=== PATIENT | male | born 1940 | race Caucasian/White ===

== ENCOUNTER 2024-07-06 23:32 | Emergency (ER) | payer MEDICARE ==
[~2024-07-06] VITALS: Ht 177.8 cm; Wt 68.0 kg
[~2024-07-06 23:32] MED LIST: ASPI-1026 PO; ATOR-2 PO; CHOL100046 PO; CYAN250014 PO; DAPA10TA PO; DIPH25CA PO; FENO160T16 PO; HYDR-4060 PO; L.AC1CAP6 PO; MAGN500C4 PO; MULT-1192 PO; OMEG-98 PO; PANT40TA54 PO; SITA1TAB6 PO; VERA120T20 PO
[2024-07-06 23:57] VITALS: PULSE 83; RESP 20
[2024-07-07 00:20] LABS: ABG BASE EXCESS 0.1 mmol/L (-2.0-3.0); ABG HCO3 24.9 mmol/L (21.0-28.0); ABG OXYGEN SATURATION 88.3 % (94.0-98.0); ABG PCO2 41 mmHg (35-48); PO2, ARTERIAL BG 54.4 mmHg (83.0-108.0); VENT MODE, BG 4L NC (ROOM AIR)
[2024-07-07 00:22] LABS: BASOPHILS # (AUTO) 0.04 K/uL (0.00-0.20); BASOPHILS % (AUTO) 0.4 % (0.0-5.0); EOSINOPHILS % (AUTO) 3.6 % (0.0-8.0); HEMATOCRIT 42.8 % (42-54); IMMATURE GRANULOCYTE ABSOLUTE 0.05 K/uL (0-1); LYMPHOCYTES # (AUTO) 2.3 K/uL (1.0-4.8); LYMPHOCYTES % (AUTO) 21.1 % (21.0-51.0); MEAN CORPUSCULAR HEMOGLOBIN 25.3 pg (27.0-33.0); MEAN CORPUSCULAR HGB CONC 30.4 g/dL (32.0-36.0); MEAN CORPUSCULAR VOLUME 83.3 fL (79-99); MONOCYTES # (AUTO) 0.9 K/uL (0.1-1.0); MONOCYTES % (AUTO) 8.3 % (3.0-13.0); NEUTROPHILS # (AUTO) 7.3 K/uL (1.8-7.7); NEUTROPHILS % (AUTO) 66.1 % (40.0-77.0); PLATELET COUNT (AUTO) 346 K/uL (130-400); RED BLOOD CELL COUNT(AUTO) 5.14 MIL/uL (4.50-6.20); RED CELL DISTRIBUTION WIDTH 18.7 % (11.0-15.5)
[2024-07-07] MEDS: furoSEMIDE 20MG VIAL IV ONE (00:32)
[2024-07-07] MEDS: Solu-medROL 125MG VIAL IVP ONE ×2 (00:32→06:08)
[2024-07-07 00:36] LABS: CREATININE 1.1 mg/dL (0.5-1.3); POTASSIUM 4.2 mmol/L (3.5-5.1)
[2024-07-07 01:05] LABS: B-TYPE NATRIURETIC PEPTIDE 271 pg/mL (0-100)
[2024-07-07 01:28] VITALS: PULSE 132; RESP 18
[2024-07-07] MEDS: acetylCYSTeine10% 4ML VIAL IH ONE (01:28)
[2024-07-07] MEDS: IpraTROPium/alBUTERol SULFATE 3 ML SOLUTION IH ONE ×2 (01:28)
[2024-07-07] MEDS: ZOSYN 3.375GM +NS 50ML IV ONE (01:37)
[2024-07-07] MEDS ORDERED: GUAI600T50 PO (04:34)
[2024-07-07] MEDS ORDERED: PRED20TA3 PO (04:34)
[2024-07-07] MEDS ORDERED: LEVO750T39 PO (04:34)
[2024-07-07] MEDS: metoPROLOL tartRATE 1 MG/ML 5ML VIAL IV ONE (06:08)
[2024-07-07] MEDS: guaiFENesin 600 MG TABLET.ER PO ONE ×2 (07:08→07:10)
[2024-07-07 12:03] VITALS: BP 118/69; PULSE 127; RESP 18; TEMP 98.8; O2SAT 93
== END 2024-07-07 12:27 | disposition home or self-care (01) ==
LOC: EDH 23:32
DX: J98.09 Other diseases of bronchus, not elsewhere classified (principal); J44.1 Chronic obstructive pulmonary disease with (acute) exacerbation; J96.21 Acute and chronic respiratory failure with hypoxia; E11.9 Type 2 diabetes mellitus without complications; F17.200 Nicotine dependence, unspecified, uncomplicated; Z79.01 Long term (current) use of anticoagulants; Z79.82 Long term (current) use of aspirin; Z79.899 Other long term (current) drug therapy; Z86.718 Personal history of other venous thrombosis and embolism; Z89.611 Acquired absence of right leg above knee
CPT/HCPCS: 99285; 80048; 82803; 83880; 85025; 36415; 94640; 71045; 96365; 96366; 96375; 96376; 93005; J3490; J2919 ×2; J2543; J1940; J7608

== ENCOUNTER 2024-08-12 22:41 | Inpatient (IN) | payer MEDICARE ==
[~2024-08-12] VITALS: Ht 177.8 cm; Wt 79.8 kg
[~2024-08-12 22:41] MED LIST changes: +GUAI600T50 PO; +LEVO750T40 PO; +PRED20TA3 PO
[2024-08-12] MEDS: Solu-medROL 125MG VIAL IVP ONE (22:56)
[2024-08-12] MEDS: MAGNESIUM 2GM PREMIX 50ML 50 ML IV SCH (23:02)
[2024-08-12 23:16] LABS: BASOPHILS % (AUTO) 0.9 % (0.0-5.0); EOSINOPHILS % (AUTO) 2.6 % (0.0-8.0); HEMATOCRIT 40.6 % (42-54); LYMPHOCYTES # (AUTO) 2.4 K/uL (1.0-4.8); LYMPHOCYTES % (AUTO) 20.9 % (21.0-51.0); MEAN CORPUSCULAR HEMOGLOBIN 24.5 pg (27.0-33.0); MEAN CORPUSCULAR HGB CONC 30.3 g/dL (32.0-36.0); MEAN CORPUSCULAR VOLUME 80.7 fL (79-99); MONOCYTES # (AUTO) 1.3 K/uL (0.1-1.0); MONOCYTES % (AUTO) 11.1 % (3.0-13.0); NEUTROPHILS # (AUTO) 7.3 K/uL (1.8-7.7); NEUTROPHILS % (AUTO) 63.6 % (40.0-77.0); NUCLEATED RED BLOOD CELLS 0.6 % (0.0-0.19); PLATELET COUNT (AUTO) 489 K/uL (130-400); RED BLOOD CELL COUNT(AUTO) 5.03 MIL/uL (4.50-6.20); RED CELL DISTRIBUTION WIDTH 20.5 % (11.0-15.5); WHITE BLOOD COUNT (AUTO) 11.4 K/uL (4.8-10.8)
[2024-08-12 23:19] VITALS: PULSE 83; RESP 22
[2024-08-12] MEDS: IpraTROPium/alBUTERol SULFATE 3 ML SOLUTION IH ONE (23:19)
[2024-08-12] MEDS ORDERED: VANCOMYCIN PROTOCOL PER PHARMACY IV SCH (23:30)
[2024-08-12 23:32] LABS: CREATININE 1.5 mg/dL (0.5-1.3); POTASSIUM 5.4 mmol/L (3.5-5.1)
[2024-08-12] MEDS: 0.9%NACL 1000ML 1,000 ML IV ONE (23:40)
[2024-08-12 23:53] LABS: SARS-CoV-2, RNA, NAAT NEGATIVE SARS CoV-2 (NEGATIVE)
[2024-08-12 23:56] LABS: INFLUENZA TYPE A Negative For Type A (NEGATIVE); INFLUENZA TYPE B Negative For Type B (NEGATIVE)
[2024-08-13] VITALS (15 sets, daily range): BP systolic 107–138; BP diastolic 65–98; PULSE 72–102; RESP 17–22; TEMP 97.5–98.4; O2SAT 89–99
[2024-08-13] MEDS: ZOSYN 3.375GM +NS 50ML IV ONE (00:03)
--- NOTE | 2024-08-13 00:10 | NUR ---
PATIENT DID NOT BRING HOME MEDICATIONS
[2024-08-13 00:29] LABS: PLATELET MORPHOLOGY LARGE PLTS PRESENT
--- NOTE | 2024-08-13 00:30 | ERN ---
General Chief Complaint: Dyspnea/Respdistress Stated Complaint: SOB Time Seen by MD: 22:51 Time Seen by Midlevel: 22:51 Source: patient History of Present Illness Initial Comments Patient is an 83-year-old male with a past medical history of hypertension, diabetes, hyperlipidemia, and recently diagnosed COPD who presents to the emergency department with shortness of breath. On arrival patient had an O2 saturation in the 70s. Patient states he is normally on home oxygen at 3 L. On arrival he specifically denies any chest pain, nausea, vomiting, or any other symptoms. Allergies: Coded Allergies: No Known Drug Allergies (Unverified Allergy, Unknown, 04/07/17) Home Meds Active Scripts Levofloxacin (Levofloxacin) 750 Mg Tablet, 1 TAB PO DAILY for 7 Days, #7 TAB 0 Refills Prov:FLORA LEDEZMA MD 07/07/24 Guaifenesin (Mucinex) 600 Mg Tablet.er, 1 TAB PO BID for cough for 10 Days, #20 TAB 0 Refills Prov:FLORA LEDEZMA MD 07/07/24 Prednisone (Prednisone) 20 Mg Tablet, 1 TAB PO AD for 6 Days, #14 TAB 0 Refills TAKE 1 TAB BY MOUTH THREE TIMES PER DAY X3 DAYS, THEN TAKE 1 TAB BY MOUTH TWICE A DAY X2 DAYS, THEN TAKE 1 TAB BY MOUTH ONCE A DAY X1 DAY. Prov:FLORA LEDEZMA MD 07/07/24 Reported Medications Hydrocodone/Acetaminophen (Hydrocodon-Acetaminophen 5-325) 1 Each Tablet, 1 EACH PO AD PRN for PAIN LEVEL 6 TO 10, TAB 04/07/17 Diphenhydramine HCl (Antihistamine) 25 Mg Capsule, 10 MG PO HS, CAP 04/07/17 L.acidoph & Paracasei,B.lactis (Probiotic) 1 Each Capsule, 1 EACH PO HS, CAP 04/07/17 Magnesium Oxide (Magnesium) 500 Mg Capsule, 500 MG PO DAILY, CAP 04/07/17 Cholecalciferol (Vitamin D3) (Vitamin D) 1,000 Unit Capsule, 1000 UNIT PO DAILY, CAP 04/07/17 Cyanocobalamin (Vitamin B-12) (Vitamin B12) 2,500 Mcg Tab.chew, 1000 MCG PO DAILY, TAB.CHEW 04/07/17 Multivitamin (Multi-Vitamin Daily) 1 Each Tablet, 1 EACH PO HS, TAB 04/07/17 Frederick-3S/Dha/Epa/Fish Oil (Fish Oil 1,200 mg Softgel) 1 Each Capsule, 1 EACH PO DAILY, CAP 04/07/17 Aspirin (Aspirin) 325 Mg Tablet, 325 MG PO HS, TAB 04/07/17 Dapagliflozin Propanediol (Farxiga) 10 Mg Tablet, 10 MG PO HS, TAB 04/07/17 Sitagliptin Phos/Metformin HCl (Janumet 50-1,000 mg Tablet) 1 Each Tablet, 1 EACH PO BIDMEALS, TAB 04/07/17 Verapamil HCl (Verapamil HCl) 120 Mg Tablet, 120 MG PO BID, TAB 04/07/17 Pantoprazole Sodium (Pantoprazole Sodium) 40 Mg Tablet.dr, 40 MG PO DAILY, TAB 04/07/17 Fenofibrate (Fenofibrate) 160 Mg Tablet, 160 MG PO DAILY, TAB 04/07/17 Atorvastatin Calcium (Atorvastatin Calcium) 80 Mg Tablet, 80 MG PO HS, TAB 04/07/17 Past Medical History Past Medical History: COPD, Diabetes-Type II, Hypertension, Hypotension, Unknown Medical History Other: ON HOME O2, BLOOD CLOTS, POOR HISTORIAN Past Surgical History: Cholecystectomy, Other Surgical History Other: RIGHT LEG AMPUTATIONS, BACK Family History Family History: Negative Social History Social History: Smokers ROS Dictation CONSTITUTIONAL: Negative except for HPI HEAD/FACE: Negative except for HPI EENT: Negative except for HPI RESPIRATORY: Negative except for HPI GASTROINTESTINAL/ABDOMINAL: Negative except for HPI GENITOURINARY: Negative except for HPI MUSCULOSKELETAL: Negative except for HPI INTEGUMENTARY: Negative except for HPI NEUROLOGICAL/PSYCH: Negative except for HPI HEMATOLOGIC/LYMPHATIC: Negative except for HPI All Systems Negative, Except as noted above. 13 point review of systems assessed and all negative except for above. Physical Exam Physical Exam Dictation Vital Signs reviewed General Appearance: Alert, oriented x 3, moderate respiratory distress, ill-a ppearing, Head and Face: non-traumatic. Eyes: PERRL, pink conjunctivas, eyelid no trauma, anterior chamber with arcus senilis. Ears: Pinnas intact and no signs of trauma or erythema ear canals clear and no discharge TM no erythema Nose: No discharge, no bleeding. Oropharynx: Mouth normal, tongue pink, pharynx clear,no erythema, tonsils no exudates, no abscesses noted, mucous membrane moist Neck: Supple, non-tender, no thyromegaly, no masses, no JVD, no bruits Breast:Deferred Chest:No tenderness, no crepitus, no paradoxical movement, Lungs: Moderate amount of wheezing to bilateral lung jennings, tachypneic Heart: Tachycardic, regular rhythm, no murmur, no gallops Vascular: no peripheral edema, Abdomen: Soft, positive bowel sounds, nondistended, no guarding, nontender, no rebound, no masses no hepatomegaly, no splenomegaly, no Lozada's sign, no hernias. Rectal: Deferred Genital: Deferred Neurological: Normal speech, motor function intact, sensory function intact Musculoskeletal: Neck nontender, full range of motion, back nontender, full range of motion, Extremities: Right AKA Skin: Color pink, dry, no turgor, no rash, no lacerations, no abrasions, no contusions. Lymphatic: Deferred Results Laboratory and Microbiology Lab and Micro Result Laboratory Tests Test 08/12/24 23:05 08/12/24 23:16 White Blood Count 11.4 K/uL (4.8-10.8) H Red Blood Count 5.03 MIL/uL (4.50-6.20) Hemoglobin 12.3 g/dL (14.0-18.0) L Hematocrit 40.6 % (42-54) L Mean Corpuscular Volume 80.7 fL (79-99) Mean Corpuscular Hemoglobin 24.5 pg (27.0-33.0) L Mean Corpuscular Hemoglobin Concent 30.3 g/dL (32.0-36.0) L Red Cell Distribution Width 20.5 % (11.0-15.5) H Platelet Count 489 K/uL (130-400) H Mean Platelet Volume 9.1 fL (7.5-10.5) Immature Granulocyte % (Auto) 0.9 % (0-1) Neutrophils (%) (Auto) 63.6 % (40.0-77.0) Lymphocytes (%) (Auto) 20.9 % (21.0-51.0) L Monocytes (%) (Auto) 11.1 % (3.0-13.0) Eosinophils (%) (Auto) 2.6 % (0.0-8.0) Basophils (%) (Auto) 0.9 % (0.0-5.0) Neutrophils # (Auto) 7.3 K/uL (1.8-7.7) Lymphocytes # (Auto) 2.4 K/uL (1.0-4.8) Monocytes # (Auto) 1.3 K/uL (0.1-1.0) H Eosinophils # (Auto) 0.30 K/uL (0.00-0.70) Basophils # (Auto) 0.10 K/uL (0.00-0.20) Absolute Immature Granulocyte (auto 0.10 K/uL (0-1) Nucleated Red Blood Cells 0.6 % (0.0-0.19) H Platelet Morphology LARGE PLTS PRESENT Red Blood Cell Morphology See comments Sodium Level 133 mmol/L (136-145) L Potassium Level 5.4 mmol/L (3.5-5.1) H Chloride Level 97 mmol/L (101-111) L Carbon Dioxide Level 22 mmol/L (21-32) Blood Urea Nitrogen 24 mg/dL (7-18) H Creatinine 1.5 mg/dL (0.5-1.3) H Glomerular Filtration Rate Calc 46 mL/min (>90) Random Glucose 147 mg/dL (70-105) H Lactic Acid Level 4.1 mmol/L (0.8-2.5) H Total Calcium 8.7 mg/dL (8.5-10.1) Magnesium Level 2.00 mg/dL (1.80-2.40) Total Creatine Kinase 115 U/L (21-232) # Troponin I High Sensitivity 15 ng/L (4-75) B-Type Natriuretic Peptide 996 pg/mL (0-100) H Procalcitonin 0.05 ng/mL (0.05-0.5) Influenza Type A Antigen Negative For Type A Influenza Type B Antigen Negative For Type B SARS-CoV-2, RNA, NAAT NEGATIVE SARS CoV-2 Labs Reviewed?: Yes MDM MDM: Differential diagnosis: COPD exacerbation, pneumonia, pulmonary edema, CHF exacerbation Rationale: Tests considered and ordered secondary to shared decision making include: Previous outside records reviewed: Old ER visits. Risk of complication and/or morbidity or mortality of patient management: None Medications-Per medication reconciliation Need for hospitalization: Patient does meet criteria for hospitalization. Need for emergency major/minor surgery: No There are no social concerns with this patient. Prescription drug management Prescriptions will include symptomatic care Patient's prior external medical records from other ER visits were reviewed by me as indicated. Prior testing and results from previous visits were reviewed. Prior tests were taken into account with medical decision making and resource utilization, independent historian/historians were used to obtain complete medical history. I independently interpreted the test that were performed, results were reviewed by me and considered findings on radiology if ordered. Medical management and examination interpretation discussions were had by me with other qualified healthcare professionals as indicated for the patient's care. ED Course Orders Procedure Category Date Status Time Cbc With Differential LAB 08/12/24 Complete 22:42 Basic Metabolic Panel LAB 08/12/24 Complete 22:42 B-Type Natriuretic LAB 08/12/24 Complete Peptide 22:42 Chest 1vw RAD 08/12/24 Taken 22:42 Troponin I High LAB 08/12/24 Complete Sensitivity 22:42 12 Lead Ekg Tracing- EKG 08/12/24 Logged Technical 22:42 Ipratropium/Albuterol PHA 08/12/24 Complete Neb (Duoneb) 23:00 Methylprednisolone PHA 08/12/24 Complete Succ 125mg (Solu-Medr 23:00 Creatine Kinase, Total LAB 08/12/24 Complete 22:52 Covid Rna Naat LAB 08/12/24 Complete 22:52 Influenza Type A & B, LAB 08/12/24 Complete Rapid 22:52 Procalcitonin LAB 08/12/24 Complete 22:52 Lactic Acid LAB 08/12/24 Complete 22:52 Magnesium LAB 08/12/24 Complete 22:52 Urinalysis Profile LAB 08/12/24 Logged 22:52 Blood Cult JULIEN 08/12/24 In Process 22:52 Magnesium 2gm Premix PHA 08/12/24 In Process 50ml (Magnesium 2gm 23:00 0.9%Nacl 1000ml (Ns PHA 08/12/24 Complete 1000ml) 23:30 Vancomycin Protocol PHA 08/12/24 Complete (Vancomycin Protocol 23:30 Zosyn 3.375gm+Ns 50ml PHA 08/12/24 Complete (Zosyn 3.375gm+Ns 23:30 Vancomycin 1.75 PHA 08/13/24 Complete Gm/250 Ml Bag 00:00 Vancomycin 1g/250ml PHA 08/14/24 In Process Kit (Vancomycin 1g/2 00:00 Vancomycin Trough LAB 08/14/24 Verified 23:00 Current Medications Medications (Trade) Dose Ordered Sig/[place] Route PRN Reason Start Time Stop Time Status Last Admin Dose Admin Albuterol (DUOneb) 1 UDVIAL ONCE ONCE IH 08/12/24 23:00 08/12/24 23:01 DC 08/12/24 23:19 Magnesium Sulfate 50 ml @ 0 mls/hr PROTOCOL IV 08/12/24 23:00 09/11/24 22:59 08/12/24 23:02 Methylprednisolone Sodium Succinate (Solu-medROL 125MG) 125 mg ONCE ONCE IVP 08/12/24 23:00 08/12/24 23:01 DC 08/12/24 22:56 Piperacillin Sod/ Tazobactam Sod (Zosyn 3.375gm+NS 50ml) 3.375 gm ONCE ONCE IV 08/12/24 23:30 08/12/24 23:42 DC 08/13/24 00:03 Sodium Chloride 1,000 ml @ 0 mls/hr ONCE ONCE IV 08/12/24 23:30 08/12/24 23:31 DC 08/12/24 23:40 Vancomycin HCl 250 ml @ 125 mls/hr ONCE ONCE IV 08/13/24 00:00 08/13/24 01:59 DC 08/13/24 00:52 Vancomycin HCl (Vancomycin Protocol) 1 each AD IV 08/12/24 23:30 08/12/24 23:55 DC Vital Signs Date Time Temp Pulse Resp B/P (MAP) Pulse Ox O2 Delivery O2 Flow Rate FiO2 08/13/24 00:04 79 21 111/63 90 Nasal Cannula* 3 32 08/12/24 23:19 83 22 08/12/24 22:42 97.0 87 32 144/96 78 DX & DISP Disposition: Inpatient Decision to Admit Date: Aug 13, 2024 Departure Impression: Primary Impression: COPD with acute exacerbation Additional Impressions: Leukocytosis, Lactic acidosis, JR (acute kidney injury), Respiratory distress Condition: Stable Referrals: WANDY ROJAS MD (PCP) I have reviewed the case, and I agree with, Diagnosis and Plan I performed the substantive portion of the visit. I have reviewed and personally made and approve the management plan that is documented in the note by myself or the ARELI. I acknowledge for responsibility for the patient's management plan. RENEE GOLDSTEIN Aug 13, 2024 00:30
[2024-08-13] MEDS: acetaMINOPHEN/coDEINE 120/12MG 5ML PO ONE (00:47)
[2024-08-13 00:49] LABS: B-TYPE NATRIURETIC PEPTIDE 996 pg/mL (0-100)
[2024-08-13] MEDS: VANCOMYCIN 1.75 GM/250 ML BAG 250 ML IV ONE (00:52)
[2024-08-13 01:04] LABS: ABG BASE EXCESS -8.9 mmol/L (-2.0-3.0); ABG HCO3 15.6 mmol/L (21.0-28.0); ABG OXYGEN SATURATION 88.3 % (94.0-98.0); ABG PCO2 30 mmHg (35-48); ABG PH 7.329 (7.350-7.450); PO2, ARTERIAL BG 57.3 mmHg (83.0-108.0); VENT MODE, BG NC (ROOM AIR)
--- NOTE | 2024-08-13 03:19 | NUR ---
PATIENT REQUESTS TO HAVE BIPAP REMOVED, PATIENT ADVISED BIPAP HAS BEEN VERY BENEFICIAL FOR HIS TREATMENT. PATIENT INSISTS ON HAVING BIPAP REMIVED
[2024-08-13 03:44] LABS: ADD UA MICROSCOPIC YES; APPEARANCE,URINE CLEAR (CLEAR); BILIRUBIN,URINE NEGATIVE (NEGATIVE); COLOR,URINE YELLOW (YELLOW); GLUCOSE, URINE (UA) >=1000 mg/dL (NEGATIVE); KETONES,URINE NEGATIVE (NEGATIVE); LEUKOCYTE ESTERASE ,URINE NEGATIVE Leu/uL (NEGATIVE); NITRATE,URINE NEGATIVE (NEGATIVE); OCCULT BLOOD,URINE NEGATIVE (NEGATIVE); PROTEIN,URINE NEGATIVE (NEGATIVE); UROBILINOGEN,URINE 0.2 mg/dL (0.2-1.0)
[2024-08-13 03:45] LABS: RBC,URINE 0-1 /HPF (0-1); WBC,URINE 0-1 /HPF (0-1)
[2024-08-13 03:47] LABS: ABG BASE EXCESS -6.3 mmol/L (-2.0-3.0); ABG HCO3 17.6 mmol/L (21.0-28.0); ABG OXYGEN SATURATION 96.9 % (94.0-98.0); ABG PCO2 31 mmHg (35-48); ABG PH 7.374 (7.350-7.450); DEVICE COMMENT LB NURSE MANNY; PO2, ARTERIAL BG 91.4 mmHg (83.0-108.0); VENT MODE, BG BIPAP 12-6 (ROOM AIR)
[2024-08-13] MEDS: DOXYCYCLINE 100MG+NS 250ML 250 ML IV SCH (06:02)
--- NOTE | 2024-08-13 06:40 | NUR ---
PATIENT PLACED BACK ON BIPAP
[2024-08-13] MEDS: IpraTROPium 0.5 MG/2.5 ML INH IH SCH (07:16)
[2024-08-13] MEDS: ALBUTEROL 0.083% 2.5 MG/3 ML INH IH SCH (07:16)
--- NOTE | 2024-08-13 07:48 | EKG ---
[facility] Test Date: 2024-08-12 Test Time: 22:49:57 Pat Name: YEN ONEAL Department: [facility] Room: 409 Gender: M Piece Presser: [id number] : [id number] Requested By: FLORA LEDEZMA Order Number: [id number] Reading MD: Castro Lacy Measurements Intervals [place] Rate: 95 P: 0 MA: 0 QRS: -77 QRSD: 109 T: -48 QT: 501 QTc: 629 Interpretive Statements Atrial fibrillation Inferior infarct, age indeterminate Prolonged QT interval Compared to ECG 07/07/2024 00:09:21 Prolonged QT interval now present T-wave abnormality no longer present Myocardial infarct finding still present Electronically Signed On 08-16-2024 19:52:22 [employer] COORDINATOR by Castro Lacy Please click the below link to view image of tracing.
--- NOTE | 2024-08-13 08:18 | HP ---
[facility] HISTORY & PHYSICAL Date Patient Seen: Aug 13, 2024 Time of Visit: 08:09 Supervising Physician: [Dr. Andrade] Primary Care Physician: [Dr. Jose Julio] Outpatient Specialists: [ ] Inpatient Consults: [ ] PROBLEM LIST: Acute COPD exacerbation, requiring BiPAP, POA Suspected Cor pulmonale, per echo Acute on chronic hypoxic respiratory failure, on home O2-3L Acute kidney injury, POA Recently diagnosed A-fib, POA Lactic acidosis, POA, improved Hyperkalemia, POA Plan: Start solumedrol 40mg Q8H Order a CT of the chest w/o contrast Continue antibiotics for now, deescalate as indicated Monitor respiratory status, ABG's as needed Continue BiPAP, titrate as needed Start lovenox 60mg Q12H Further management per hospital course Resume home meds when available HPI: [This is an 83-year-old male with a history diabetes, hypertension, hyperlipidemia, recently diagnosed COPD on home O2 at 3 L NC who presents to the ED for evaluation of shortness of breaths. He was found hypoxic with O2 sat of 70% and was placed on supplemental oxygen and later BiPAP. His labs reveal leukocytosis with WBC of 11, hyponatremia at 1:33 a.m., hyperkalemia at 5.4 and elevated creatinine at 1.5. His CK was 115, troponin 15, BNP elevated at 996. His COVID and flu swabs were negative, pro count was 0.05. Had lactic acidosis at 4.1, improved to 2.1. His UA was positive for glucosuria. Patient was given a dose of antibiotics and nebulizer treatment in the ED. CXR from admission pending reading but appears to have mild bilateral pulmonary infiltrates. Initial EKG on admission shows atrial fibrillation. Per , patient as recently diagnosed with A-fib about a week ago. He takes metoprolol 100mg succinate and eliquis 5mg at home.] PAST MEDICAL HX: see above PAST SURGICAL HX: noncontributory SOCIAL HISTORY: No tobacco, ETOH, or illicit drug use Coded Allergies: No Known Drug Allergies (Unverified Allergy, Unknown, 04/07/17) REVIEW OF SYSTEMS: 12 point ROS reviewed with patient. Pertinent positives mentioned above. Otherwise negative. PHYSICAL EXAM: GENERAL: alert, weak, awake oriented x 3 HEENT: EOMI, Sclera non icteric, moist mucosa NECK: Supple, no JVD, trachea midline LUNGS: Clear breath sounds bilaterally. No wheezes HEART: Regular rate and rhythm. Normal S1 and S2, without murmurs ABD: Abdomen soft, nontender. Bowel sounds present EXT: No clubbing cyanosis or edema NEURO: Alert and oriented to person, follows commands Vital Signs (last 8hr) Date Time Temp Pulse Resp B/P (MAP) Pulse Ox O2 Delivery O2 Flow Rate FiO2 08/13/24 07:20 98.2 76 21 117/64 98 Bi-PAP+ 5.0 30 08/13/24 07:20 78 19 08/13/24 07:12 78 21 50 08/13/24 06:40 98.2 95 19 125/68 98 Bi-PAP+ 30 08/13/24 04:33 80 19 111/81 91 Nasal Cannula* 5 40 08/13/24 04:00 87 21 08/13/24 04:00 87 21 N/Cannula Low lpm 5.0 40 08/13/24 03:20 78 19 101/77 96 Bi-PAP+ 30 08/13/24 01:46 85 18 94/56 97 Bi-PAP+ 30 08/13/24 01:20 85 21 50 08/13/24 01:09 90 21 95/53 96 Nasal Cannula* 3 32 LABS: Hematology Labs: Test 08/12/24 23:05 Range/Units White Blood Count 11.4 H 4.8-10.8 K/uL Red Blood Count 5.03 4.50-6.20 MIL/uL Hemoglobin 12.3 L 14.0-18.0 g/dL Hematocrit 40.6 L 42-54 % Mean Corpuscular Volume 80.7 79-99 fL Mean Corpuscular Hemoglobin 24.5 L 27.0-33.0 pg Mean Corpuscular Hemoglobin Concent 30.3 L 32.0-36.0 g/dL Red Cell Distribution Width 20.5 H 11.0-15.5 % Platelet Count 489 H 130-400 K/uL Mean Platelet Volume 9.1 7.5-10.5 fL Immature Granulocyte % (Auto) 0.9 0-1 % Neutrophils (%) (Auto) 63.6 40.0-77.0 % Lymphocytes (%) (Auto) 20.9 L 21.0-51.0 % Monocytes (%) (Auto) 11.1 3.0-13.0 % Eosinophils (%) (Auto) 2.6 0.0-8.0 % Basophils (%) (Auto) 0.9 0.0-5.0 % Neutrophils # (Auto) 7.3 1.8-7.7 K/uL Lymphocytes # (Auto) 2.4 1.0-4.8 K/uL Monocytes # (Auto) 1.3 H 0.1-1.0 K/uL Eosinophils # (Auto) 0.30 0.00-0.70 K/uL Basophils # (Auto) 0.10 0.00-0.20 K/uL Absolute Immature Granulocyte (auto 0.10 0-1 K/uL Nucleated Red Blood Cells 0.6 H 0.0-0.19 % Platelet Morphology LARGE PLTS PRESENT Red Blood Cell Morphology See comments Chemistry Labs: Test 08/13/24 05:41 08/13/24 04:50 08/12/24 23:05 Range/Units B-Type Natriuretic Peptide 1030 H 0-100 pg/mL Lactic Acid Level 2.1 0.8-2.5 mmol/L Thyroid Stimulating Hormone (TSH) 5.19 #H 0.36-3.74 uIU/mL Sodium Level 133 L 136-145 mmol/L Potassium Level 5.4 H 3.5-5.1 mmol/L Chloride Level 97 L 101-111 mmol/L Carbon Dioxide Level 22 21-32 mmol/L Blood Urea Nitrogen 24 H 7-18 mg/dL Creatinine 1.5 H 0.5-1.3 mg/dL Glomerular Filtration Rate Calc 46 >90 mL/min Random Glucose 147 H 70-105 mg/dL Total Calcium 8.7 8.5-10.1 mg/dL Magnesium Level 2.00 1.80-2.40 mg/dL Total Creatine Kinase 115 # 21-232 U/L Troponin I High Sensitivity 15 4-75 ng/L Procalcitonin 0.05 0.05-0.5 ng/mL DIAGNOSTICS / RADIOLOGY RESULTS: [pending CXR reading] PLAN NEURO: Minimize central acting medications as possible. Maintain fall precautions, adequate lighting during the day PULMONARY: Supplemental 02 as needed. Maintain aspiration precautions at all times CARDIOVASCULAR: Follow hemodynamics. Vital signs per facility protocol GI & NUTRITION: Continue with nutritional support. Continue stool softeners and laxatives as needed. KIDNEYS & ELECTROLYTES: Strict monitoring of intake, output and overall fluid balance. Avoid nephrotoxic medications to the extent possible. Medications to be dosed according to renal function. Monitor electrolytes and replace as needed ENDOCRINE: Maintain blood glucose between 100-180 at all times. Hypoglycemia protocol in place INFECTIOUS DISEASE: Trend temperature, WBC and procalcitonin level Follow cultures, deescalate antibiotics as soon as possible. Panculture if new onset fever ONCOLOGY/HEMATOLOGY/COAGULATION: Monitor for s/s of bleeding Monitor hemoglobin, coagulation studies as needed SKIN: Pressure ulcer prevention per facility protocol Specialty mattress ORTHO/REHAB: Continue PT/OT Prophylaxis: Continue GI and DVT prophylaxis Code Status: Full Resuscitation Disposition: TBD Other: Total patient care time exceeds 35 minutes excluding all procedures. MAVIS PEGUERO Aug 13, 2024 08:18
--- NOTE | 2024-08-13 08:26 | HMCIMG ---
CHEST 1VW REASON: SOB COMPARISON: 07/07/2024 FINDINGS: Single view of the chest was obtained. Lungs are clear. Heart size is normal. There is no pulmonary vascular congestion. There may be minimal pleural effusions. Mediastinum and bony thorax appear unremarkable. IMPRESSION: 1. There may be minimal pleural effusions, the exam is otherwise unremarkable.
[2024-08-13] MEDS: Solu-medROL 40MG VIAL IVP SCH (08:59)
[2024-08-13] MEDS: metoPROLOL tartRATE 50 MG TAB PO ONE (09:00)
[2024-08-13] MEDS: ENOXAPARIN SODIUM 60 MG/0.6 ML SQ ONE (09:00)
[2024-08-13] MEDS: furoSEMIDE 40MG VIAL IV SCH (09:00)
[2024-08-13] MEDS: metOPROLol sucCINATE 50 MG TAB.SR.24H PO SCH (09:37)
--- NOTE | 2024-08-13 10:20 | NUR ---
DCP: HOME Per Nia Gregorio [phone], Pt had AKA of rt leg in February and they are still trying to adjust this change. Pt's son came from out of state and made changes to their home for pt to have better access into and throughout his home. states home is now handicap equipped and there is no need for pt to go anywhere but home. Pt was going to [facility] to get pt ready for prothesis, but that has been placed on hold, since pt has become weaker. Pt and hoping to get be able to return to therapy soon. provides standby assistance in shower, pt has reg walker, w/c, electric w/c, O2 concentrator and portable concentrator as well. PCP is Andie Julio and they use [facility] for rx. DCP is home Addendum: 08/13/24 at 1027 by NILDA HERNANDEZ Amended: Links added.
--- NOTE | 2024-08-13 10:47 | HMCIMG ---
CT CHEST W/O CONTRAST REASON: SOB COMPARISON: None. TECHNIQUE: Multiple sequential axial images of the chest were obtained from the thoracic inlet through the upper pole of the kidneys without intravenous contrast administration. FINDINGS: There is a small right pleural effusion. There is mild atelectasis in the right lung base. Lungs are otherwise clear. There are no focal masses or infiltrates. Heart size is normal with no vascular congestion. There is no hilar or mediastinal lymphadenopathy. Chest wall structures appear normal. Visualized upper abdominal structures show a small amount of fluid around the liver. Upper abdominal structures are otherwise unremarkable. IMPRESSION: 1. Small right pleural effusion with some basilar atelectasis, there is a minimal left effusion. 2. Small amount of fluid around the liver. 3. Otherwise unremarkable noncontrast CT chest. CT was performed with one or more following dose reduction techniques: automated exposure control, adjustment of the mA and kv according to patient's size, or use of a iterative reconstruction technique.
--- NOTE | 2024-08-13 17:25 | NUR ---
PATIENT ARRIVED TO UNIT VIA STRETCHER. RESPIRATORY THERAPIST AT BEDSIDE. PATIENT TO BE ON BIPAP, SETTINGS IN PLACE WELL NASAL CANNULA. PATIENT IN NO RESPIRATORY DISTRESS, ALERT AND ORIENTED X 4. IV TO LEFT HAND PATENT AND INTACT. BED IN LOWEST POSITION AND CALL LIGHT IN REACH
[2024-08-13] MEDS: guaiFENesin/dextroMETHORphan 1 EACH TAB.SR.12H PO SCH (20:46)
--- NOTE | 2024-08-13 23:10 | NUR ---
PT REFUSING TO KEEP BIPAP ON O2 SAT WITH IT ON 96%. TRIED TO PUT HIS HI-FLOW N/C HE IS REFUSING THAT WELL. EDUCATED HIM THAT HIS OXYGEN SATURATION WILL GO DOWN WITH NOTHING ON PT STATES HE DOES NOT NEED OXYGEN HE STRICTLY CAME IN FOR A COUGH. BERTHA RAMIREZ IS GIVING HIM HIS BREATHING TREATMENT WITH OXYGEN ON HIS O2 SAT IS 92%. HE IS REFUSING OXYGEN WITNESSED BY BERTHA RAMIREZ. REFUSAL SIGNED BY MYSELF AND BERTHA. PT IS AAOX3 ABLE TO MAKE HIS OWN DECISIONS.
--- NOTE | 2024-08-13 23:30 | NUR ---
PT HAS O2 ON AT THIS TIME AT 5L VIA N/C, O2 SAT 99%. NO S/S OF DISTRESS NOTED. SITTING UP IN HIS OWN W/C HE STATED HE WILL CALL WHEN HE IS READY TO BE PUT BACK IN BED.
[2024-08-14] VITALS (12 sets, daily range): BP systolic 93–133; BP diastolic 57–88; PULSE 87–109; RESP 18–23; TEMP 97.4–98.5; O2SAT 84–95
[2024-08-14] MEDS: VANCOMYCIN 1G/250ML KIT 250 ML IV SCH (00:18)
[2024-08-14 05:23] LABS: HEMATOCRIT 39.1 % (42-54); MEAN CORPUSCULAR HEMOGLOBIN 24.3 pg (27.0-33.0); MEAN CORPUSCULAR HGB CONC 29.9 g/dL (32.0-36.0); MEAN CORPUSCULAR VOLUME 81.3 fL (79-99); NUCLEATED RED BLOOD CELLS 0.6 % (0.0-0.19); RED BLOOD CELL COUNT(AUTO) 4.81 MIL/uL (4.50-6.20); RED CELL DISTRIBUTION WIDTH 20.4 % (11.0-15.5); WHITE BLOOD COUNT (AUTO) 7.9 K/uL (4.8-10.8)
[2024-08-14 05:37] LABS: CREATININE 1.2 mg/dL (0.5-1.3); PHOSPHORUS 3.4 mg/dL (2.5-4.9); POTASSIUM 4.2 mmol/L (3.5-5.1)
[2024-08-14 05:43] LABS: HEMOGLOBIN A1C 6.7 % (4.0-6.0)
[2024-08-14] MEDS ORDERED: metOPROLol sucCINATE 50 MG TAB.SR.24H PO SCH (09:00)
[2024-08-14] MEDS ORDERED: PANT40TA54 PO (09:18)
[2024-08-14] MEDS ORDERED: POTA-200 PO (09:18)
[2024-08-14] MEDS ORDERED: PRED10TA23 PO (09:18)
[2024-08-14] MEDS ORDERED: FURO20TA4 PO (09:18)
[2024-08-14] MEDS ORDERED: METO-409 PO (09:18)
[2024-08-14] MEDS ORDERED: ATOR40TA71 PO (09:18)
[2024-08-14] MEDS ORDERED: SITA1TAB6 PO (09:18)
[2024-08-14] MEDS ORDERED: FENO160T16 PO (09:18)
[2024-08-14] MEDS ORDERED: APIX5TAB PO (09:18)
[2024-08-14] MEDS ORDERED: DAPA10TA PO (09:18)
--- NOTE | 2024-08-14 21:01 | PN ---
[facility] PROGRESS NOTE Date Patient Seen: Aug 14, 2024 Time of Visit: 21:01 Supervising Physician: [Dr. Funk] Primary Care Physician: [Dr. Jose Julio] Outpatient Specialists: [ ] Inpatient Consults: [ ] PROBLEM LIST: Acute COPD exacerbation, requiring BiPAP, POA Suspected Cor pulmonale, per echo Acute on chronic hypoxic respiratory failure, on home O2-3L Acute kidney injury, POA Recently diagnosed A-fib, POA Lactic acidosis, POA, improved Hyperkalemia, POA Plan: Stop solumedrol, start prednisone Stop antibiotics Monitor respiratory status, ABG's as needed Continue BiPAP, titrate as needed Stop lovenox, start eliquis Further management per hospital course Resume home meds when available INTERVAL HISTORY: [Patient continues on NRB however he states is feeling much improved. He is somewhat tachycardic but no fever. Is satting in low 90's on room air. Has diuresed 575ml of urine output overnight, continues on lasix 40 IV. Creatinine improved to 1.2. CT chest shows small right pleural effusion, not amenable to thoracentesis, no infiltrates. He voices wanting to go home. Was advised to continue treatment until improved.] REVIEW OF SYSTEMS: 12 point ROS reviewed with patient. Pertinent positives mentioned above. Otherwise negative. PHYSICAL EXAM: GENERAL: alert, weak, awake oriented x 3 HEENT: EOMI, Sclera non icteric, moist mucosa NECK: Supple, no JVD, trachea midline LUNGS: Clear breath sounds bilaterally. No wheezes HEART: Regular rate and rhythm. Normal S1 and S2, without murmurs ABD: Abdomen soft, nontender. Bowel sounds present EXT: No clubbing cyanosis or edema NEURO: Alert and oriented to person, follows commands Vital Signs (last 8hr) Date Time Temp Pulse Resp B/P (MAP) Pulse Ox O2 Delivery O2 Flow Rate FiO2 08/14/24 20:00 98.4 101 22 94/58 92 Venti Mask 08/14/24 18:15 89 20 N/A Room Air 21 08/14/24 18:15 88 18 08/14/24 16:00 97.9 107 20 108/77 90 Room Air 21 LABS: Hematology Labs: Test 08/14/24 04:53 08/12/24 23:05 Range/Units White Blood Count 7.9 4.8-10.8 K/uL Red Blood Count 4.81 4.50-6.20 MIL/uL Hemoglobin 11.7 L 14.0-18.0 g/dL Hematocrit 39.1 L 42-54 % Mean Corpuscular Volume 81.3 79-99 fL Mean Corpuscular Hemoglobin 24.3 L 27.0-33.0 pg Mean Corpuscular Hemoglobin Concent 29.9 L 32.0-36.0 g/dL Red Cell Distribution Width 20.4 H 11.0-15.5 % Platelet Count 417 H 130-400 K/uL Mean Platelet Volume 9.2 7.5-10.5 fL Nucleated Red Blood Cells 0.6 H 0.0-0.19 % Immature Granulocyte % (Auto) 0.9 0-1 % Neutrophils (%) (Auto) 63.6 40.0-77.0 % Lymphocytes (%) (Auto) 20.9 L 21.0-51.0 % Monocytes (%) (Auto) 11.1 3.0-13.0 % Eosinophils (%) (Auto) 2.6 0.0-8.0 % Basophils (%) (Auto) 0.9 0.0-5.0 % Neutrophils # (Auto) 7.3 1.8-7.7 K/uL Lymphocytes # (Auto) 2.4 1.0-4.8 K/uL Monocytes # (Auto) 1.3 H 0.1-1.0 K/uL Eosinophils # (Auto) 0.30 0.00-0.70 K/uL Basophils # (Auto) 0.10 0.00-0.20 K/uL Absolute Immature Granulocyte (auto 0.10 0-1 K/uL Platelet Morphology LARGE PLTS PRESENT Red Blood Cell Morphology See comments Chemistry Labs: Test 08/14/24 04:53 08/13/24 05:41 08/13/24 04:50 08/12/24 23:05 Range/Units Sodium Level 139 136-145 mmol/L Potassium Level 4.2 3.5-5.1 mmol/L Chloride Level 102 101-111 mmol/L Carbon Dioxide Level 28 21-32 mmol/L Blood Urea Nitrogen 27 H 7-18 mg/dL Creatinine 1.2 0.5-1.3 mg/dL Glomerular Filtration Rate Calc 60 >90 mL/min Random Glucose 245 H 70-105 mg/dL Hemoglobin A1c 6.7 H 4.0-6.0 % Estimated Average Glucose (eAG) 146 H 70-126 mg/dL Total Calcium 8.8 8.5-10.1 mg/dL Phosphorus Level 3.4 2.5-4.9 mg/dL Magnesium Level 2.00 1.80-2.40 mg/dL B-Type Natriuretic Peptide 1030 H 0-100 pg/mL Lactic Acid Level 2.1 0.8-2.5 mmol/L Thyroid Stimulating Hormone (TSH) 5.19 #H 0.36-3.74 uIU/mL Total Creatine Kinase 115 # 21-232 U/L Troponin I High Sensitivity 15 4-75 ng/L Procalcitonin 0.05 0.05-0.5 ng/mL DIAGNOSTICS / RADIOLOGY RESULTS: [ ] PLAN NEURO: Minimize central acting medications as possible. Maintain fall precautions, adequate lighting during the day PULMONARY: Supplemental 02 as needed. Maintain aspiration precautions at all times CARDIOVASCULAR: Follow hemodynamics. Vital signs per facility protocol GI & NUTRITION: Continue with nutritional support. Continue stool softeners and laxatives as needed. KIDNEYS & ELECTROLYTES: Strict monitoring of intake, output and overall fluid balance. Avoid nephrotoxic medications to the extent possible. Medications to be dosed according to renal function. Monitor electrolytes and replace as needed ENDOCRINE: Maintain blood glucose between 100-180 at all times. Hypoglycemia protocol in place INFECTIOUS DISEASE: Trend temperature, WBC and procalcitonin level Follow cultures, deescalate antibiotics as soon as possible. Panculture if new onset fever ONCOLOGY/HEMATOLOGY/COAGULATION: Monitor for s/s of bleeding Monitor hemoglobin, coagulation studies as needed SKIN: Pressure ulcer prevention per facility protocol Specialty mattress ORTHO/REHAB: Continue PT/OT Prophylaxis: Continue GI and DVT prophylaxis Code Status: Full Resuscitation Disposition: TBD Other: Total patient care time exceeds 35 minutes excluding all procedures. MAVIS PEGUERO Aug 14, 2024 21:01
[2024-08-14] MEDS: predniSONE 20 MG TABLET PO SCH (21:51)
[2024-08-15] VITALS (8 sets, daily range): BP systolic 118–128; BP diastolic 75–98; PULSE 108–113; RESP 18–24; TEMP 97.6–98.4; O2SAT 80–90
[2024-08-15 06:11] LABS: BASOPHILS # (AUTO) 0.01 K/uL (0.00-0.20); BASOPHILS % (AUTO) 0.1 % (0.0-5.0); HEMATOCRIT 39.6 % (42-54); IMMATURE GRANULOCYTE ABSOLUTE 0.07 K/uL (0-1); LYMPHOCYTES # (AUTO) 0.9 K/uL (1.0-4.8); LYMPHOCYTES % (AUTO) 9.5 % (21.0-51.0); MEAN CORPUSCULAR HEMOGLOBIN 24.5 pg (27.0-33.0); MEAN CORPUSCULAR HGB CONC 30.3 g/dL (32.0-36.0); MEAN CORPUSCULAR VOLUME 80.8 fL (79-99); MONOCYTES # (AUTO) 0.5 K/uL (0.1-1.0); MONOCYTES % (AUTO) 4.6 % (3.0-13.0); NEUTROPHILS # (AUTO) 8.3 K/uL (1.8-7.7); NEUTROPHILS % (AUTO) 85.1 % (40.0-77.0); NUCLEATED RED BLOOD CELLS 0.5 % (0.0-0.19); PLATELET COUNT (AUTO) 375 K/uL (130-400); RED CELL DISTRIBUTION WIDTH 20.2 % (11.0-15.5); WHITE BLOOD COUNT (AUTO) 9.8 K/uL (4.8-10.8)
[2024-08-15 06:33] LABS: CREATININE 1.2 mg/dL (0.5-1.3); POTASSIUM 5.1 mmol/L (3.5-5.1)
[2024-08-15] MEDS: APIXaban 5 MG TABLET PO SCH (08:51)
[2024-08-15] MEDS ORDERED: IPRNEB NEB (13:02)
[2024-08-15] MEDS ORDERED: FURO40TA5 PO (13:02)
--- NOTE | 2024-08-15 13:03 | DS ---
[facility] DISCHARGE SUMMARY Date Patient Seen: Aug 15, 2024 Time of Visit: 13:02 Supervising Physician: [Dr. Funk] Primary Care Physician: [Dr. Jose Julio] Outpatient Specialists: [ ] Inpatient Consults: [ ] PROBLEM LIST: Acute COPD exacerbation, requiring BiPAP, POA Suspected Cor pulmonale, per echo Acute on chronic hypoxic respiratory failure, on home O2-3L Acute kidney injury, POA Recently diagnosed A-fib, on eliquis POA Lactic acidosis, POA, improved Hyperkalemia, POA HOSPITAL COURSE: HPI (per admitting provider) This is an 83-year-old male with a history diabetes, hypertension, hyperlipidemia, recently diagnosed COPD on home O2 at 3 L NC who presented to the ED for evaluation of shortness of breath. He was found hypoxic with O2 sat of 70% and was placed on supplemental oxygen and later BiPAP. His labs revealed leukocytosis with WBC of 11, hyponatremia at 133, hyperkalemia at 5.4 and elevated creatinine at 1.5. His CK was 115, troponin 15, BNP elevated at 996. His COVID and flu swabs were negative, pro count was 0.05. Had lactic acidosis at 4.1, improved to 2.1. His UA was positive for glucosuria. Patient was given a dose of antibiotics and nebulizer treatment in the ED. CXR from admission shows a small R-pleural effusion without any infiltrates. Initial EKG on admission shows atrial fibrillation. Per , patient as recently diagnosed with A-fib about a week ago. He takes metoprolol 100mg succinate and eliquis 5mg at home. A CT of the chest revealed a small R- pleural effusion and a small amount of fluid around the liver, no noted infiltrates. He was treated with steroids, antibiotics and diuretics with improvement. He weaned off BiPAP and non-rebreather to room air with O2 sats in low to mid 90's. He has baseline home O2 use and states he usually functions " fine" around 90% O2 sat. Patient felt improved and was expressing his desire to go home. No fever, body aches, chills or phlegm production upon discharge. He was sent a prescription for atrovent as he said it helped him as well as lasix 40mg daily. Was advised to follow up with his PCP for repeat labs and monitoring of blood pressure. Follow up with pulmonology outpatient as ashish yates. CHRONIC PROBLEMS: continue previous management per PCP unless otherwise indicated DISCHARGE MEDICATIONS: Continue all medications as listed below. Start atrovent. Start mucinex OTC. Start lasix 40mg daily. Pt hemodynamically stable and afebrile at time of discharge. PCP notified of patients admission, hospital course and discharge. New Medications: Ipratropium [place] (Atrovent Neb Soln) 0.2 Mg/Ml (0.02 %) Soln 1 VIAL NEB QID for 30 Days, #300 ML 0 Refills Changed Medications: Furosemide (Furosemide) 40 Mg Tablet 1 TAB PO DAILY for 30 Days, #30 TAB 0 Refills (Changed from: Furosemide 20 Mg Tablet 1 Tab PO DAILY 30 Days #30 TAB Ref 0) Continued Medications: Apixaban (Eliquis) 5 Mg Tablet 1 TAB PO BID for 30 Days, #60 TAB 0 Refills Atorvastatin Calcium (Atorvastatin Calcium) 40 Mg Tablet 1 TAB PO HS for 30 Days, #30 TAB 0 Refills Dapagliflozin Propanediol (Farxiga) 10 Mg Tablet 1 TAB PO DAILY for 30 Days, #30 TAB 0 Refills Fenofibrate (Fenofibrate) 160 Mg Tablet 1 TAB PO DAILY for 30 Days, #30 TAB 0 Refills Metoprolol Succinate (Metoprolol Succinate) 100 Mg Tab.er.24h 1 TAB PO DAILY for 30 Days, #30 TAB 0 Refills Pantoprazole Sodium (Pantoprazole Sodium) 40 Mg Tablet.dr 1 TAB PO DAILY for 30 Days, #30 TAB 0 Refills Potassium Chloride (Potassium Chloride) 10 Meq Tab.er.prt 1 TAB PO DAILY for 30 Days, #30 TAB 0 Refills Prednisone (Prednisone) 10 Mg Tab.ds.pk 1 TAB PO DAILY for 5 Days, #21 TAB 0 Refills Sitagliptin Phos/Metformin HCl (Janumet 50-1,000 mg Tablet) 50 Mg-1,000 Mg Tablet 1 TAB PO BID for 30 Days, #60 TAB 0 Refills PHYSICAL EXAM: GENERAL: alert, weak, awake oriented x 3 HEENT: EOMI, Sclera non icteric, moist mucosa NECK: Supple, no JVD, trachea midline LUNGS: Clear breath sounds bilaterally. No wheezes HEART: Regular rate and rhythm. Normal S1 and S2, without murmurs ABD: Abdomen soft, nontender. Bowel sounds present EXT: No clubbing cyanosis, 2+ edema to LLE, s/p R-AKA NEURO: Alert and oriented to person, follows commands FOLLOW-UP: F/U with PCP in 2-3 days for reevaluation. Continue current medication. F/U with specialists as scheduled. Start atrovent nebulizer. Increase lasix to 40mg daily. Monitor creatinine and blood pressure with PCP. Take mucinex over the counter. Continue oral prednisone as prescribed. Follow up with pulmonology and cardiology outpatient as scheduled. RECOMMENDATIONS: See Discharge Instructions This case was seen and discussed with my supervising physician. More than 30 minutes spent on discharge process, including evaluation of the patient, discussion with nursing staff, medication reconciliation and follow-up appointments MAVIS PEGUERO Aug 15, 2024 13:03
--- NOTE | 2024-08-15 13:30 | NUR ---
PATIENT D/C HOME. MEDICATION CHANGES REVIEWED WITH PATIENT AND SPOUSE. VERBALIZED UNDERSTANDING. NO S/S OF DISTRESS PRESENT AT THIS TIME. IV REMOVED. PATIENT WHEELED DOWNSTAIRS AND TRANSFERRED TO PERSONAL VEHICLE.
== END 2024-08-15 13:20 | disposition home or self-care (01) | DRG 189 ==
LOC: EDH 22:41 → EDHIP 08-13 00:25 → 4BH 08-13 17:06
PROVIDERS: ADMIT Internal Medicine Pulmonary Disease; ATTEND Internal Medicine Pulmonary Disease
PROC: 5A09357 Assistance with Respiratory Ventilation, Less than 24 Consecutive Hours, Continuous Positive Airway Pressure (ICD-10-PCS; principal; 2024-08-13)
DX: J96.21 Acute and chronic respiratory failure with hypoxia (principal); J44.1 Chronic obstructive pulmonary disease with (acute) exacerbation; N17.9 Acute kidney failure, unspecified; E87.20 Acidosis, unspecified; J90 Pleural effusion, not elsewhere classified; E87.1 Hypo-osmolality and hyponatremia; I27.81 Cor pulmonale (chronic); I48.91 Unspecified atrial fibrillation; E87.5 Hyperkalemia; I10 Essential (primary) hypertension; E78.5 Hyperlipidemia, unspecified; E11.9 Type 2 diabetes mellitus without complications; D72.829 Elevated white blood cell count, unspecified; R79.89 Other specified abnormal findings of blood chemistry; R81 Glycosuria; Z99.81 Dependence on supplemental oxygen; Z79.01 Long term (current) use of anticoagulants; Z79.899 Other long term (current) drug therapy
CPT/HCPCS: 36415; 36600; 71045; 71250; 80048; 81001; 82550; 82803; 83036; 83605; 83735; 83880; 84100; 84145; 84443; 84484; 85025; 85027; 87040; 87071; 87205; 87635; 87804; 93005; 93306; 93971; 94640; 94660; 94664; 96365; 96372; 99285; G0378; J1650; J1940; J2543; J2919; J3370; J3475; J3490; J7030

== ENCOUNTER 2024-09-15 10:17 | Inpatient (IN) | payer MEDICARE ==
[2024-09-14 12:34] LABS: BASOPHILS # (AUTO) 0.02 K/uL (0.00-0.20); BASOPHILS % (AUTO) 0.2 % (0.0-5.0); EOSINOPHILS # (AUTO) 0.08 K/uL (0.00-0.70); EOSINOPHILS % (AUTO) 0.8 % (0.0-8.0); HEMATOCRIT 43.8 % (42-54); IMMATURE GRANULOCYTE ABSOLUTE 0.07 K/uL (0-1); LYMPHOCYTES # (AUTO) 0.7 K/uL (1.0-4.8); LYMPHOCYTES % (AUTO) 7.6 % (21.0-51.0); MEAN CORPUSCULAR HEMOGLOBIN 23.8 pg (27.0-33.0); MEAN CORPUSCULAR HGB CONC 28.8 g/dL (32.0-36.0); MEAN CORPUSCULAR VOLUME 82.8 fL (79-99); MONOCYTES # (AUTO) 0.4 K/uL (0.1-1.0); MONOCYTES % (AUTO) 3.7 % (3.0-13.0); NEUTROPHILS # (AUTO) 8.5 K/uL (1.8-7.7); NUCLEATED RED BLOOD CELLS 0.2 % (0.0-0.19); PLATELET COUNT (AUTO) 305 K/uL (130-400); RED BLOOD CELL COUNT(AUTO) 5.29 MIL/uL (4.50-6.20); RED CELL DISTRIBUTION WIDTH 20.1 % (11.0-15.5); WHITE BLOOD COUNT (AUTO) 9.8 K/uL (4.8-10.8)
[2024-09-14 12:47] LABS: POTASSIUM 4.1 mmol/L (3.5-5.1)
[2024-09-14 12:48] LABS: INR 1.18 (0.85-1.15)
[2024-09-14 12:49] LABS: PARTIAL THROMBOPLASTIN TIME 26.6 SEC (26.3-35.5)
[2024-09-14 12:54] VITALS: BP 112/69; PULSE 125; RESP 17; TEMP 97.5
--- NOTE | 2024-09-14 14:48 | NUR ---
RE: LABS REPORTED PT 13.0/INR 1.[address] REHMAN, NO NEW ORDERS RECEIVED.
[~2024-09-15] VITALS: Ht 177.8 cm; Wt 79.7 kg
[2024-09-15] VITALS (57 sets, daily range): BP systolic 66–210; BP diastolic 45–122; PULSE 62–120; RESP 18–25; TEMP 96–97.8; O2SAT 80–99
[~2024-09-15 10:17] MED LIST changes: +APIX5TAB PO; -ASPI-1026 PO; -ATOR-2 PO; +BENZ-226 PO; +CACL 1GM SYG IVP ONE; -CHOL100046 PO; -CYAN250014 PO; -DAPA10TA PO; -DIPH25CA PO; -FENO160T16 PO; +FURO40TA5 PO; -GUAI600T50 PO; -HYDR-4060 PO; +INSLAN SQ; +IPRA3AMP24 IH; -L.AC1CAP6 PO; +LACT-441 PO; -LEVO750T40 PO; -MAGN500C4 PO; +METO-409 PO; -MULT-1192 PO; -OMEG-98 PO; -PANT40TA54 PO; +POTA10CA95 PO; -SITA1TAB6 PO; -VERA120T20 PO
--- NOTE | 2024-09-15 11:07 | NUR ---
COMMUNICATED WITH EXHAUSTER ENGINEER NURSE SERJIO, INFORMED THAT PT O2 SATS AT 85 TO 88 % ROOM AIR AND 92 % ON O2 NASAL CANNULA, ALSO CALLED DR. REHMAN TO INFORM BUT NO ANSWER. PT STATES HAS CHRONIC COUGH AND CONGESTION
--- NOTE | 2024-09-15 11:24 | NUR ---
NS NOT CONNECTED TO IV, AWAITING DR. REHMAN FOR EVALUATION
[2024-09-15] MEDS ORDERED: 0.9%NACL 1000ML 1,000 ML IV SCH (11:30)
[2024-09-15] MEDS: IpraTROPium/alBUTERol SULFATE 3 ML SOLUTION IH ONE (13:01)
[2024-09-15] MEDS ORDERED: ketaMINE HCL 100 MG/ML 5ML VIAL IJ ONE (13:05)
[2024-09-15] MEDS ORDERED: ALBUMIN (HUMAN) 5% 250 ML IV ONE (13:07)
[2024-09-15] MEDS ORDERED: FAMOTIDINE 20MG VIAL IV ONE (13:07)
[2024-09-15] MEDS ORDERED: LIDOCAINE PF 100MG/5ML (2%) SYRINGE 5ML ONE (13:08)
[2024-09-15] MEDS ORDERED: ondanSETRON 4MG INJ ONE (13:08)
[2024-09-15] MEDS ORDERED: GLYCOPYRROLATE 0.2 MG/ML 5 ML VIAL ONE (13:08)
[2024-09-15] MEDS ORDERED: dexaMETHasone SOD PHOSPHATE 10MG/ML 1ML VIAL ONE (13:08)
[2024-09-15] MEDS ORDERED: rocuRONium bROMide 10MG/1ML 5ML VL ONE ×2 (13:08→13:09)
[2024-09-15] MEDS ORDERED: proPOFol 10 MG/ML 20ML VIAL IV ONE (13:08)
[2024-09-15] MEDS ORDERED: NEOSTIGMINE METHYLSULFATE 1MG/ML IV ONE (13:08)
[2024-09-15] MEDS ORDERED: SUCCINYLCHOLINE CHLORIDE 20 MG/ML 10 ML VIAL ONE (13:08)
[2024-09-15] MEDS ORDERED: MIDAZOLAM HCL 1 MG/ML 2ML VIAL ONE (13:09)
[2024-09-15] MEDS ORDERED: FENTanyl CITRate PF 50 MCG/1 ML 2ML VIAL ONE (13:09)
[2024-09-15] MEDS ORDERED: ePHEDrine SULFate 50 MG/ML AMPULE ONE (13:14)
[2024-09-15] MEDS: SUGAMMADEX SODIUM 200 MG/2 ML VIAL IV ONE (13:16)
[2024-09-15] MEDS ORDERED: ATROPINE 1MG SYG IVP ONE (13:18)
[2024-09-15 13:19] LABS: ABG BASE EXCESS 3.2 mmol/L (-2.0-3.0); ABG HCO3 27.8 mmol/L (21.0-28.0); ABG OXYGEN SATURATION 84.2 % (94.0-98.0); ABG PCO2 42 mmHg (35-48); ABG PH 7.436 (7.350-7.450); CARBON MONOXIDE 1.6 % (0.5-1.5); HHb 15.5; PO2, ARTERIAL BG 47.8 mmHg (83.0-108.0); VENT MODE, BG RA (ROOM AIR)
[2024-09-15] MEDS ORDERED: NOREPINEPHRINE BITARTRATE 1 MG/1 ML ML IV ONE (13:19)
--- NOTE | 2024-09-15 14:50 | NUR ---
PT TO CHIEF FUNDRAISING OFFICER DENTURES REMOVED GIVEN TO
[2024-09-15] MEDS ORDERED: HEParin-NS 1,000 UNIT/500 ML 500 ML IV ONE (15:13)
[2024-09-15] MEDS ORDERED: LIDOCAINE HCL 400MG/20ML VIAL ONE (15:13)
[2024-09-15] MEDS ORDERED: HEParin 10,000 UNIT/10ML (1,000 UNIT/ML) VIAL ONE (15:13)
[2024-09-15] MEDS ORDERED: furoSEMIDE 40MG VIAL ONE (16:12)
[2024-09-15] MEDS ORDERED: doBUTamine 250MG/D5 250ML 250 ML IV ONE (16:14)
[2024-09-15] MEDS ORDERED: phenylEPHRINE HCL 10 MG/ML 1ML VIAL IV ONE (16:29)
[2024-09-15] MEDS ORDERED: PHENYLEPHRINE 10 MG/ML IV ONE (16:31)
[2024-09-15] MEDS ORDERED: VASOpressin 20 UNITS/ML 1ML VIAL ONE (16:32)
[2024-09-15 16:39] LABS: ABG BASE EXCESS -7.6 mmol/L (-2.0-3.0); ABG HCO3 22.8 mmol/L (21.0-28.0); ABG PCO2 71 mmHg (35-48); ABG PH 7.127 (7.350-7.450); CARBON MONOXIDE 1.7 % (0.5-1.5); HHb 5.9; PO2, ARTERIAL BG 93.3 mmHg (83.0-108.0); VENT MODE, BG ANT VENT (ROOM AIR)
[2024-09-15] MEDS ORDERED: SODIUM BICARB 50MEQ 50ML VIAL 100 ML ONE (16:39)
[2024-09-15 17:02] LABS: ABG BASE EXCESS -11.6 mmol/L (-2.0-3.0); ABG HCO3 17.9 mmol/L (21.0-28.0); ABG PCO2 56 mmHg (35-48); ABG PH 7.124 (7.350-7.450); CARBON MONOXIDE 1.6 % (0.5-1.5); HHb 2.9; PO2, ARTERIAL BG 128.7 mmHg (83.0-108.0); VENT MODE, BG ANT VENT (ROOM AIR)
--- NOTE | 2024-09-15 17:10 | NUR ---
notified ainsley rush of pt coming to unit, gave orders for sedation versed and fent.
--- NOTE | 2024-09-15 17:11 | NUR ---
recieved report from hoisting laborer melba vasquez. pt had ablation via right groin for aflutter. 2 venous sheaths removed at 1640 and 1 sheath converted to femoral central line. pt was general anesthia and intubated, pt ran into respiratory and hemodynamic issues requring pressors and unable to extubate. pt was given bicarb and heparin during procedure. drips levo and dobutamine, cardona placed, right a line. left tibial pulse via doppler. drfuentes/evens on case, eliu go. pt was noted with cough prior to procedure. ablation successful with SR but per RN thats when pt decompensated.
[2024-09-15] MEDS: furoSEMIDE 40MG VIAL IV SCH (17:30)
--- NOTE | 2024-09-15 17:45 | NUR ---
pt arrived to unit vented, computer lab assistant at bedside.
--- NOTE | 2024-09-15 17:51 | HP ---
[facility] Date of Service: Sep 15, 2024 Time of Service: 17:51 HISTORY OF PRESENT ILLNESS: Date of service: 09/15/2024 83-year-old male with past medical history of COPD, CHF, hypertension, DM two, PVD status post right AKA, history of atrial fibrillation on anticoagulation who presented to the hospital secondary to atrial fibrillation. History is obtained from chart review, patient's had provider. Patient was scheduled for elective AFib ablation by Cardiology. Postprocedure the patient was noted to have respiratory acidosis and was unable to be liberated from the ventilator. Per patient has had chronic COPD and was having cough with associated sputum production. did not notice any new symptoms present. She denied any fever, chills. Additionally patient was also found to be hypotensive and needed to be started on Levophed and dobutamine. Patient was thereafter admitted in the ICU. History is fairly limited since patient is currently intubated. On chart review patient was previously admitted for heart failure exacerbation with community-acquired pneumonia and was discharged on August 29, 2024. When seen at bedside patient is currently on the ventilator on 100% FiO2. His blood pressure was noted to be in the 160 systolics. ABG showed pH of 7.127/71/93.3/22. Labs are currently pending. 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 Pupils are equal and reactive. Extraocular movements are intact. NECK: Supple. No JVD. No thyromegaly. No submental, submandibular, pre- /postauricular, occipital or supraclavicular lymphadenopathy. CHEST: Normal chest expansion. No Telemetry. LUNGS: Mild wheezing noted bilaterally CARDIOVASCULAR: Regular. S1 and S2 normal. No appreciable rubs, murmurs or gallops. ABDOMEN: Soft, nontender, and nondistended. There is no rebound, voluntary guarding, or rigidity. : Deferred. No [place]. EXTREMITIES: History of right above-knee amputation. SKIN: No skin breakdown. Vital Sign (Last 24 Hours) 09/15/24 09/15/24 09/15/24 10:45 13:22 17:45 Temp 97.9 Pulse 120 Resp 21 B/P (MAP) 109/72 Pulse Ox 92 O2 Delivery N/A Room Air O2 Flow Rate 2.0 FiO2 70 LABS: Laboratory: Test 09/15/24 17:00 09/15/24 13:01 09/15/24 10:32 09/14/24 12:10 Range/Units Blood Gas Specimen Type Arterial Arterial Blood pH 7.124 *L 7.350-7.450 Arterial Blood Partial Pressure CO2 56 H 35-48 mmHg Arterial Blood Partial Pressure O2 128.7 H 83.0-108.0 mmHg Arterial Blood HCO3 17.9 L 21.0-28.0 mmol/L Arterial Blood Oxygen Saturation 97.0 94.0-98.0 % Arterial Blood Base Excess -11.6 L -2.0-3.0 mmol/L Hemoglobin (Blood Gas) 13.5 13.5-17.5 g/dL Sodium (Blood Gas) 138 136-145 MMOL/L Bedside Potassium (Blood Gas) 3.5 3.4-4.5 MMOL/L Bedside Chloride (Blood Gas) 106 98-107 MMOL/L Bedside Glucose (Blood Gas) 347 H 65-95 MG/DL Bedside Ionized Calcium (Blood Gas) 1.36 H 1.15-1.33 MMOL/L Bedside Lactic Acid (Blood Gas) 4.22 *H 0.36-0.75 MMOL/L Blood Gas Temperature 37.0 35.5-37.0 CELSIUS Blood Gas Vent Mode ANT VENT ROOM AIR FiO2 100.0 % Blood Gas Specimen Comment TIFFANIE DELATORRE B-Type Natriuretic Peptide 439 H 0-100 pg/mL Whole Blood Glucose 158 H 70-110 MG/DL White Blood Count 9.8 4.8-10.8 K/uL Red Blood Count 5.29 4.50-6.20 MIL/uL Hemoglobin 12.6 L 14.0-18.0 g/dL Hematocrit 43.8 42-54 % Mean Corpuscular Volume 82.8 79-99 fL Mean Corpuscular Hemoglobin 23.8 L 27.0-33.0 pg Mean Corpuscular Hemoglobin Concent 28.8 L 32.0-36.0 g/dL Red Cell Distribution Width 20.1 H 11.0-15.5 % Platelet Count 305 130-400 K/uL Mean Platelet Volume 8.7 7.5-10.5 fL Immature Granulocyte % (Auto) 0.7 0-1 % Neutrophils (%) (Auto) 87.0 H 40.0-77.0 % Lymphocytes (%) (Auto) 7.6 L 21.0-51.0 % Monocytes (%) (Auto) 3.7 3.0-13.0 % Eosinophils (%) (Auto) 0.8 0.0-8.0 % Basophils (%) (Auto) 0.2 0.0-5.0 % Neutrophils # (Auto) 8.5 H 1.8-7.7 K/uL Lymphocytes # (Auto) 0.7 L 1.0-4.8 K/uL Monocytes # (Auto) 0.4 0.1-1.0 K/uL Eosinophils # (Auto) 0.08 0.00-0.70 K/uL Basophils # (Auto) 0.02 0.00-0.20 K/uL Absolute Immature Granulocyte (auto 0.07 0-1 K/uL Nucleated Red Blood Cells 0.2 H 0.0-0.19 % White Cell Morphology Comment See comments Red Blood Cell Morphology See comments Prothrombin Time 13.0 H 9.6-11.6 SEC Prothromb Time International Ratio 1.18 H 0.85-1.15 Activated Partial Thromboplast Time 26.6 26.3-35.5 SEC Sodium Level 138 136-145 mmol/L Potassium Level 4.1 3.5-5.1 mmol/L Chloride Level 102 101-111 mmol/L Carbon Dioxide Level 33 H 21-32 mmol/L Blood Urea Nitrogen 19 H 7-18 mg/dL Creatinine 1.0 0.5-1.3 mg/dL Glomerular Filtration Rate Calc 74 >90 mL/min Random Glucose 238 H 70-105 mg/dL Total Calcium 8.7 8.5-10.1 mg/dL Current Medications Medications (Trade) Dose Ordered Sig/[place] Route PRN Reason Start Time Stop Time Status Last Admin Dose Admin Albuterol (DUOneb) 1 UDVIAL Q6H PRN IH SHORTNESS OF BREATH 09/15/24 18:00 10/15/24 17:59 UNV Budesonide (Pulmicort 0.25mg/2ml) 0.25 mg BIDRESP IH 09/15/24 18:00 10/15/24 17:59 UNV Cefepime HCl (MAXipime 1 GM vial) 1 gm Q8H IVPB 09/15/24 18:00 09/17/24 17:59 UNV Famotidine (Pepcid 20mg Vial) 20 mg BID IV 09/15/24 21:00 10/15/24 20:59 UNV Furosemide (LASix 40MG VIAL) 80 mg Q8H IV 09/15/24 17:30 10/15/24 17:29 Sodium Chloride 1,000 ml @ 0 mls/hr Q0M IV 09/15/24 11:30 10/15/24 11:29 DIAGNOSTICS / RADIOLOGY: Chest x-ray is pending ASSESSMENT: Acute hypoxic and hypercapnic respiratory failure POA Mixed respiratory and metabolic acidosis POA Acute on chronic COPD exacerbation POA Acute on chronic heart failure with systolic dysfunction with EF of 45-50% Community-acquired pneumonia rule out Hypotension differential cardiogenic versus sepsis Sepsis rule out Lactic acidosis Atrial fibrillation status post ablation on 09/15/2024 History of chronic anticoagulation with Eliquis Hypertension Hyperlipidemia Debility History of right AKA PLAN: - patient to be admitted to ICU -in reference to acute hypoxic and hypercapnic respiratory failure. Personally spoke and discussed this case with critical Care. We will defer to critical Care regarding ventilator management and sedation protocol. -patient to be started on cefepime. Obtain blood cultures. Patient will also be started on Solu-Medrol. -continue with IV Lasix per Cardiology recommendations -continue with Levophed and dobutamine. Wean medications to keep map greater than 65 mmHg -patient will be NPO for now -obtain home medications which will be reconciled once available -check TSH, A1c, procaine, CRP -obtain a stat chest x-ray -further orders per hospitalization course. Plan of care was discussed with patient's at bedside. stated that patient in the past had declined to be intubated. is agreeable to continuing intubation at this time. She wants to liberate the patient from the ventilator as soon as possible. We will discuss with critical Care for SBT tomorrow. Advanced Care Planning Which of the following were discussed: Hospice care: Yes __ No _x_ Therapeutic options: Yes __ No __ Advance directives: Yes __ No __ Other discussions: Discussed with who?: patients (Patient, family or surrogates) Voluntary nature of this service was explained to the patient? Yes _x_ No __ Amount of time spent: 35 minutes Total critical care time spend > 35 minutes PERLITA Elias MD, MD Sep 15, 2024 17:51
[2024-09-15] MEDS ORDERED: IpraTROPium/alBUTERol SULFATE 3 ML SOLUTION IH PRN (18:00)
--- NOTE | 2024-09-15 18:00 | NUR ---
while setting up pt on drips. dr kerns rounding , would like to have pt on heparin drip, ween levo and keep vaso drip as tolerates but if both needed then use both. spoke with pt (bedside) and son on phone and spoke about the procedure. this RN was explaining vent and sedation to spouse when spouse stated "oh no this is not what he wanted, he did not want to be on a machine breathing for him, when he finds out that i let this happen he will never forgive me." spoke with and stated he would like to see how pt does tomorrow, spouse verbalized understanding. then spouse again stated, very upset and angry, she did not want intubation for him and she would like to remove machine since she is now his POA, this RN verbalized and educated spouse that with taking machine off he would decline and pass, he is relying on machine and medications to keep him alive, spouse then stated well his wishes are not any of this, this RN offered DNR and explained but spouse would like to wait for son to show up to discuss. again educated spouse that during procedure intubation was needed and at times they can remove breathing tube but in this case they were unable to. 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 spouse verbalized understanding but still does not want intubation. spoke to spouse as well.
[2024-09-15 18:31] LABS: BASOPHILS # (AUTO) 0.08 K/uL (0.00-0.20); BASOPHILS % (AUTO) 0.4 % (0.0-5.0); EOSINOPHILS # (AUTO) 0.08 K/uL (0.00-0.70); EOSINOPHILS % (AUTO) 0.4 % (0.0-8.0); HEMATOCRIT 47.3 % (42-54); IMMATURE GRANULOCYTE ABSOLUTE 0.24 K/uL (0-1); LYMPHOCYTES # (AUTO) 2.1 K/uL (1.0-4.8); LYMPHOCYTES % (AUTO) 10.5 % (21.0-51.0); MEAN CORPUSCULAR HEMOGLOBIN 23.5 pg (27.0-33.0); MEAN CORPUSCULAR HGB CONC 28.3 g/dL (32.0-36.0); MONOCYTES # (AUTO) 0.8 K/uL (0.1-1.0); MONOCYTES % (AUTO) 3.8 % (3.0-13.0); NEUTROPHILS # (AUTO) 17.1 K/uL (1.8-7.7); NEUTROPHILS % (AUTO) 83.7 % (40.0-77.0); NUCLEATED RED BLOOD CELLS 0.7 % (0.0-0.19); PLATELET COUNT (AUTO) 354 K/uL (130-400); RED CELL DISTRIBUTION WIDTH 20.3 % (11.0-15.5); WHITE BLOOD COUNT (AUTO) 20.4 K/uL (4.8-10.8)
[2024-09-15 18:55] LABS: CREATININE 0.9 mg/dL (0.5-1.3); POTASSIUM 4.6 mmol/L (3.5-5.1)
[2024-09-15] MEDS ORDERED: GLUCAGON 1MG KIT 1 MG ML IM PRN (19:00)
[2024-09-15] MEDS ORDERED: DEXTROSE 50%-WATER 50 ML DISP.SYRIN IV PRN (19:00)
--- NOTE | 2024-09-15 19:04 | HMCIMG ---
Exam Type: CHEST 1VW Clinical Information: ETT Placement Comparison: None Findings: Endotracheal tube is noted with tip approximately 6cm from sruthi and no interval changes are seen otherwise. IMPRESSION: Endotracheal tube tip as noted.
[2024-09-15] MEDS: BUDESONIDE 0.25 MG/2 ML INH IH SCH (19:23)
[2024-09-15] MEDS ORDERED: HEParin 5,000 UNIT VIAL IV PRN (19:30)
[2024-09-15 19:36] LABS: ABG BASE EXCESS -5.4 mmol/L (-2.0-3.0); ABG OXYGEN SATURATION 91.3 % (94.0-98.0); ABG PCO2 39 mmHg (35-48); CARBON MONOXIDE 1.2 % (0.5-1.5); HHb 8.6; PO2, ARTERIAL BG 68.6 mmHg (83.0-108.0); VENT MODE, BG AC VC (ROOM AIR)
--- NOTE | 2024-09-15 20:00 | CONS ---
[facility] CONSULTATION NOTE Date Patient Seen: Sep 15, 2024 Time of Visit: 20:00 Supervising Physician: Dr. Jermaine Nguyen Reason for Consultation: Ventilator management consulted by Dr. Ascencion White Primary Care Physician: Admitting team: [facility] hospitalist team Outpatient Specialists: Inpatient Consults: [facility], pulmonary/critical care team PROBLEM LIST: Atrial fibrillation s/p ablation on 09/15/2024 -remained intubated s/p procedure due to respiratory distress during procedure on 09/15/2024 Acute hypoxemic and hypercapnic respiratory failure Acute on chronic obstructive pulmonary exacerbation Acute on chronic congestive heart failure Chronic AFib, on chronic anticoagulation with the Eliquis Hypertension, currently hypotensive cardiogenic versus septic shock Pulmonary hypertension Mild moderate mitral regurgitation Hyperlipidemia Debility/frailty History of AKA HPI: Mr. Terry is a 83-year-old male with history of a COPD, CHF, pulmonary hypertension, essential hypertension, mild aortic stenosis, DM type 2, DVT s/p AKA, history of AFib on anticoagulation who presented to the hospital for evaluation of atrial fibrillation. The patient was diagnosed with atrial flutter and was admitted with a plan of a ablation. After procedure was done he was noted to be in respiratory distress, remained intubated, and was transferred to ICU. [facility] critical Care team was consulted by the admitting team [facility] team for critical care management/ ventilator management. I went to assess the patient at bedside in room 207. The patient's breathing was even, unlabored, on the ventilator, on fentanyl IV drip, Versed IV drip, and Levophed IV drip. BP 119/90, respirations 24bpm, 80 bpm, O2 94-96%. RN reports that the son and are at bedside and they are upset because it is not the patient's wishes to be intubated. Dr. Jermaine Nguyen has seen the patient and talked to the about the plan. Dr. White has also spoken to the and informed her that they will be breathing trials in a.m. with plan to attempt to extubate the patient. RN reports that Dr. Pak, cardiac director of publications was on the phone with family and spoke to them via phone for about 20-30 minutes. RN in room explaining to family again why patient is still intubated. I went in to assess patient and family reports that when they try to extubate patient in the morning the patient will be anxious and very upset so it might be difficult to extubate him. They report that he is going to need to be calmed down for extubation. I spent ample amount of time informing them of the reason why the patient is still intubated. Education done on patient's condition, intubation, criteria and process for extubation, medications he is on and the purpose of the medications, patient's vital signs, labs, diagnostics, and plan of care. They verbalized understanding and are in agreement with the plan. Plan and assessment are listed below. PAST MEDICAL HX: see above PAST SURGICAL HX: Atrial fibrillation ablatio right [id number] amputation SOCIAL HISTORY: Unable to obtain Coded Allergies: No Known Drug Allergies (Unverified Allergy, Unknown, 04/07/17) REVIEW OF SYSTEMS: Unable to obtain ROS from patient due to patient intubated and sedated. PHYSICAL EXAM: GENERAL: Intubated and sedated HEENT: EOMI, Sclera non icteric, moist mucosa. Endotracheal tube and OG in place. NECK: Supple, no JVD, trachea midline LUNGS: Upper lobes clear, lower lobes diminished bilaterally. No wheezes HEART: Regular rate and rhythm. Normal S1 and S2, without murmurs ABD: Abdomen soft, nontender. Bowel sounds present EXT: No clubbing cyanosis or + edema NEURO: Intubated and sedated Vital Signs (last 8hr) Date Time Temp Pulse Resp B/P (MAP) Pulse Ox O2 Delivery O2 Flow Rate FiO2 09/15/24 19:29 83 70 09/15/24 19:28 83 24 09/15/24 17:45 70 09/15/24 13:22 120 21 N/A Room Air 21 09/15/24 13:08 118 20 LABS: Hematology Labs: Test 09/15/24 18:15 09/14/24 12:10 Range/Units White Blood Count 20.4 H 4.8-10.8 K/uL Red Blood Count 5.70 4.50-6.20 MIL/uL Hemoglobin 13.4 L 14.0-18.0 g/dL Hematocrit 47.3 42-54 % Mean Corpuscular Volume 83.0 79-99 fL Mean Corpuscular Hemoglobin 23.5 L 27.0-33.0 pg Mean Corpuscular Hemoglobin Concent 28.3 L 32.0-36.0 g/dL Red Cell Distribution Width 20.3 H 11.0-15.5 % Platelet Count 354 130-400 K/uL Mean Platelet Volume 8.7 7.5-10.5 fL Immature Granulocyte % (Auto) 1.2 H 0-1 % Neutrophils (%) (Auto) 83.7 H 40.0-77.0 % Lymphocytes (%) (Auto) 10.5 L 21.0-51.0 % Monocytes (%) (Auto) 3.8 3.0-13.0 % Eosinophils (%) (Auto) 0.4 0.0-8.0 % Basophils (%) (Auto) 0.4 0.0-5.0 % Neutrophils # (Auto) 17.1 H 1.8-7.7 K/uL Lymphocytes # (Auto) 2.1 1.0-4.8 K/uL Monocytes # (Auto) 0.8 0.1-1.0 K/uL Eosinophils # (Auto) 0.08 0.00-0.70 K/uL Basophils # (Auto) 0.08 0.00-0.20 K/uL Absolute Immature Granulocyte (auto 0.24 0-1 K/uL Nucleated Red Blood Cells 0.7 H 0.0-0.19 % White Cell Morphology Comment See comments Red Blood Cell Morphology See comments Chemistry Labs: Test 09/15/24 18:15 09/15/24 18:07 Range/Units Sodium Level 143 136-145 mmol/L Potassium Level 4.6 3.5-5.1 mmol/L Chloride Level 107 101-111 mmol/L Carbon Dioxide Level 24 21-32 mmol/L Blood Urea Nitrogen 18 7-18 mg/dL Creatinine 0.9 0.5-1.3 mg/dL Glomerular Filtration Rate Calc 84 >90 mL/min Random Glucose 321 H 70-105 mg/dL Lactic Acid Level 5.1 H 0.8-2.5 mmol/L Total Calcium 8.9 8.5-10.1 mg/dL C-Reactive Protein, Quantitative 3.20 H 0.5-3.0 mg/L B-Type Natriuretic Peptide 522 H 0-100 pg/mL Procalcitonin < 0.05 L 0.05-0.5 ng/mL Whole Blood Glucose 227 H 70-110 MG/DL Coagulation Labs: Test 09/14/24 12:10 Range/Units Prothrombin Time 13.0 H 9.6-11.6 SEC Prothromb Time International Ratio 1.18 H 0.85-1.15 Activated Partial Thromboplast Time 26.6 26.3-35.5 SEC DIAGNOSTICS / RADIOLOGY RESULTS: [ ] PLAN Patient was admitted to ICU status post ablation with BI team as critical care consults. Respiratory: Monitor respiratory status closely. Titrate ventilator to keep SpO2 equal to greater than 92% and according to ABGs. Continue albuterol and Atrovent nebulizer treatment Continue antibiotic therapy: Cefepime. Follow blood cultures. Next continue Solu-Medrol IV. Cardiac: Cardiology Dr. Prudence Tidwell, cardiac director of publications is on case and is following patient. BIS team will follow cardiology's recommendations. Continue heparin IV drip and Lasix as ordered by Cardiology. Continue Levophed IV drip to keep map above 65. Continue dobutamine. Continue fentanyl IV drip and Versed IV drip RASS -2. P.r.n. medications for: Pain management, fever, nausea, vomiting, constipation. Glucometer checks a.c. and HS with insulin regular sliding scale coverage as needed. Vital signs per ICU protocol. Monitor renal and liver function. Monitor electrolytes and replace accordingly. A.m. labs: CBC, BNP, Mag, phos, TSH, A1c. NPO for now. Reconcile home medications once available. GI and DVT prophylaxis NEURO: Minimize central acting medications as possible. Fall Precautions. Well lighted room through the day and minimize interruptions through the night to prevent acute delirium. PULMONARY: Supplemental 02 as needed Titrate Fio2 to keep Spo2 > or = 90% DuoNebs and CPT as needed IS hourly while awake for pulmonary hygiene Out of bed to chair as tolerated VAP Bundle CARDIOVASCULAR: Follow hemodynamics. Titrate vasopressor to keep MAP >65 or systolic blood pressure >95mmHg GI & NUTRITION: Continue nutritional support Aspirations precautions Prokinetic agents and laxatives as needed. NPO for now. KIDNEYS & ELECTROLYTES: Strict monitoring of intake and output Daily weights Avoid nephrotoxic agents Monitor electrolytes and replace as needed Goal urine output of 30mL/hr or 0.5mL/kg/hr ENDOCRINE: Maintain blood glucose between 100-180 at all times. Insulin sliding scale for blood glucose management INFECTIOUS DISEASE: Trend temperature. Neal-culture if febrile. HEMATOLOGY & COAGULATION: Monitor H&H. Keep Hgb > 7 Transfuse 1 unit of PRBC for Hgb < 7 Transfuse 1 pack of platelets of platelets < 20, 000 Watch for any signs and symptoms of bleeding SKIN: Pressure ulcer prevention per facility protocol Rehab: PT/OT Code Status: Full Resuscitation Disposition: [Admit to ICU] Other: Total patient critical care time exceeds 60 minutes excluding all procedures. ALLAN BOO Sep 15, 2024 20:00
--- NOTE | 2024-09-15 20:30 | NUR ---
CODI ESPINOZA EVALUATED PT AT BEDSIDE ANSWERED FAMILY QUESTIONS, AND EDUCATED FAMILY ON PTS SITUATION. PT IS VERY CRITICAL S/P ABLATION EARLIER TODAY BY DR. REHMAN S/P PROCEDURE PT BECAME RESP ACIDOSIS AND HYPOTENSION ON PRESSOR SUPPORT. PT ON VASO, LEVO, DOBUTAMINE, VERSED, FENTANYL AND HEPARIN. FAMILY UPSET REGARDING INTUBATION, WAS UNAWARE THEY INTUBATED FOR PROCEDURE EXPLAINED TO PATIENT CONSENTED FOR GENERAL ANESTHESIA FOR PROCEDURE INTUBATION IS REQUIRED DUE TO HIGH RISK FOR ABLATION. UNFORTUNATELY PATIENT COMORBIDITIES AND PROCEDURE RISKS PT BECAME UNSTABLE TO BE EXTUBATED AFTER PROCEDURE AND TRANSFER TO ICU FOR CONTINUATION OF CARE. UNDERSTOOD , SON AT BEDSIDE WELL. POWER OF PLUSH FINISHER STATED DNR DNI- FOR NOW FULL CODE REMAINS. GOAL IS TO EXTUBATE PT IF STABLE AND TOLERATED. REPORTED CRITICAL LABS TO ALLAN ESPINOZA LACTIC INCREASING LOW -02 , BOLUS NS 250 ML AND FI02 INCREASED TO 100% - PT VERY CRITICAL SMALL MOVEMENT PT DROPS TO 70S 02 SAT. SMALL SLIGHT CHANGES. WILL CONT TO MONITOR INITIATED HEPARIN DRIP 2100. NO PAIN NOTED PER CPOT
[2024-09-15] MEDS: FAMOTIDINE 20MG VIAL IV SCH (21:08)
[2024-09-15] MEDS: ceFEPime HCL 1 GM VIAL IVPB SCH (21:08)
[2024-09-15] MEDS: Solu-medROL 40MG VIAL IVP SCH (21:08)
[2024-09-15] MEDS: HEParin 25,000 UNITS/250ML D5W 250 ML IV SCH (21:15)
[2024-09-15] MEDS: FENTanyl 2500MCG+NS 250ML 250 ML IV ONE (21:18)
[2024-09-15] MEDS: NOREPINEPHRINE 16MG/NS 250ML 250 ML IV ONE (21:21)
[2024-09-15] MEDS: HEParin 5,000 UNIT VIAL IV ONE (22:07)
[2024-09-15] MEDS: VASOpressin 20 UNITS/ML 1ML Vi 40 UNITS in 0.9%NACL 50ML 40 ML IV SCH (22:08)
[2024-09-15] MEDS ORDERED: 0.9% NACL 250ML 250 ML IV SCH (22:30)
[2024-09-15] MEDS ORDERED: FENTanyl 1000MCG+NS 100ML 100 ML IV SCH (22:30)
--- NOTE | 2024-09-15 23:26 | PN ---
[facility] PROGRESS NOTE Date Patient Seen: Sep 15, 2024 Time of Visit: 16:15 Supervising Physician: NORMA NARAYANAN Primary Care Physician: MINA REHMAN Outpatient Specialists: [ ] Inpatient Consults: [ ] PROBLEM LIST: 1. ATRIAL FLUTTER S/P ABLATION 2. RESPIRATORY DISTRESS DURING PROCEDURE 3.CHRONIC OBSTRUCTIVE PULMONARY DISEASE 4. HYPERTENSION 5.CONGESTIVE HEART FAILURE 6. PULMONARY HYPERTENSION 7.CHRONIC HYPOXIC RESPIRATORY FAILURE 8.MILD TO MODERATE MITRAL REGURGITATION 9.LEFT AKA STATUS INTERVAL HISTORY: Patient is 83 year old gentleman with underling hx of pulmonary htn, essential HTN, mild aortic stenosis, CHF, diagnose with Atrial flutter therefore he has been admitted and plan was to proceed with ablation, procedure done and he was noted to be on respiratory distress, he was intubated and remains sedated, as per patient will be very upset because he was intubated, at this time plan is to start him weaning off from sedation slowly in the morning tomorro obtain ABG's, we will follow up closely. REVIEW OF SYSTEMS: 12 point ROS reviewed with patient. Pertinent positives mentioned above. Otherwise negative. PHYSICAL EXAM: GENERAL: sedated HEENT: EOMI, Sclera non icteric, moist mucosa NECK: Supple, no JVD, trachea midline LUNGS: Clear breath sounds bilaterally. No wheezes HEART: Regular rate and rhythm. Normal S1 and S2, without murmurs ABD: Abdomen soft, nontender. Bowel sounds present EXT: No clubbing cyanosis or edema NEURO: sedated Vital Signs (last 8hr) Date Time Temp Pulse Resp B/P (MAP) Pulse Ox O2 Delivery O2 Flow Rate FiO2 09/15/24 22:08 110/68 09/15/24 21:35 79 24 100/79 (86) 79 09/15/24 21:32 79 24 107/78 (88) 95 118/84 (95) 09/15/24 21:21 94/75 09/15/24 21:20 79 24 91/72 (78) 94 09/15/24 21:17 79 24 90/73 (79) 93 114/83 (93) 09/15/24 21:05 79 24 94/75 (81) 94 09/15/24 21:02 79 24 85/66 (72) 95 109/77 (88) 09/15/24 20:50 80 24 86/71 (76) 94 09/15/24 20:47 80 24 91/76 (81) 96 117/85 (96) 09/15/24 20:35 80 24 106/80 (89) 95 09/15/24 20:32 80 24 112/75 (87) 94 120/85 (97) 09/15/24 20:20 80 24 115/84 (94) 94 09/15/24 20:17 80 24 109/80 (90) 91 119/90 (100) 09/15/24 20:05 81 24 102/77 (85) 95 09/15/24 20:02 81 24 86/72 (77) 94 117/89 (98) 09/15/24 20:00 95 Ventilator+ 100 09/15/24 19:50 97.2 81 24 95/78 (84) 96 09/15/24 19:47 81 24 102/79 (87) 99 118/86 (97) 09/15/24 19:35 82 24 105/73 (84) 98 09/15/24 19:32 82 24 109/75 (86) 98 117/84 (95) 09/15/24 19:29 83 70 09/15/24 19:28 83 24 09/15/24 19:20 83 24 116/75 (89) 97 09/15/24 19:05 83 24 106/68 (81) 97 70 111/79 (90) 09/15/24 19:00 83 24 88/76 (80) 95 70 09/15/24 18:45 83 24 91/70 (77) 94 70 09/15/24 18:30 114 24 93/62 (72) 86 70 09/15/24 18:17 114 24 142/89 (106) 88 70 133/95 (108) 09/15/24 18:15 113 24 147/98 (114) 89 70 09/15/24 18:07 97 24 210/116 (147) 94 70 170/122 (138) 09/15/24 18:02 65 25 148/96 (113) 89 70 86/56 (66) 09/15/24 18:00 99 Ventilator+ 70 09/15/24 18:00 70 09/15/24 18:00 96.1 09/15/24 18:00 62 24 66/46 (53) 89 70 09/15/24 17:59 108 24 69/47 (54) 89 100 72/45 (54) 09/15/24 17:47 96.1 93 24 191/115 (140) 94 100 169/121 (137) 09/15/24 17:45 70 09/15/24 17:45 88 24 138/95 (109) 89 100 09/15/24 17:43 89 24 94/56 (69) 89 100 83/59 (67) LABS: Hematology Labs: Test 09/15/24 18:15 09/14/24 12:10 Range/Units White Blood Count 20.4 H 4.8-10.8 K/uL Red Blood Count 5.70 4.50-6.20 MIL/uL Hemoglobin 13.4 L 14.0-18.0 g/dL Hematocrit 47.3 42-54 % Mean Corpuscular Volume 83.0 79-99 fL Mean Corpuscular Hemoglobin 23.5 L 27.0-33.0 pg Mean Corpuscular Hemoglobin Concent 28.3 L 32.0-36.0 g/dL Red Cell Distribution Width 20.3 H 11.0-15.5 % Platelet Count 354 130-400 K/uL Mean Platelet Volume 8.7 7.5-10.5 fL Immature Granulocyte % (Auto) 1.2 H 0-1 % Neutrophils (%) (Auto) 83.7 H 40.0-77.0 % Lymphocytes (%) (Auto) 10.5 L 21.0-51.0 % Monocytes (%) (Auto) 3.8 3.0-13.0 % Eosinophils (%) (Auto) 0.4 0.0-8.0 % Basophils (%) (Auto) 0.4 0.0-5.0 % Neutrophils # (Auto) 17.1 H 1.8-7.7 K/uL Lymphocytes # (Auto) 2.1 1.0-4.8 K/uL Monocytes # (Auto) 0.8 0.1-1.0 K/uL Eosinophils # (Auto) 0.08 0.00-0.70 K/uL Basophils # (Auto) 0.08 0.00-0.20 K/uL Absolute Immature Granulocyte (auto 0.24 0-1 K/uL Nucleated Red Blood Cells 0.7 H 0.0-0.19 % White Cell Morphology Comment See comments Red Blood Cell Morphology See comments Chemistry Labs: Test 09/15/24 21:57 09/15/24 18:15 09/15/24 18:07 Range/Units Lactic Acid Level 7.1 H 0.8-2.5 mmol/L Sodium Level 143 136-145 mmol/L Potassium Level 4.6 3.5-5.1 mmol/L Chloride Level 107 101-111 mmol/L Carbon Dioxide Level 24 21-32 mmol/L Blood Urea Nitrogen 18 7-18 mg/dL Creatinine 0.9 0.5-1.3 mg/dL Glomerular Filtration Rate Calc 84 >90 mL/min Random Glucose 321 H 70-105 mg/dL Total Calcium 8.9 8.5-10.1 mg/dL C-Reactive Protein, Quantitative 3.20 H 0.5-3.0 mg/L B-Type Natriuretic Peptide 522 H 0-100 pg/mL Procalcitonin < 0.05 L 0.05-0.5 ng/mL Whole Blood Glucose 227 H 70-110 MG/DL Coagulation Labs: Test 09/15/24 18:15 09/14/24 12:10 Range/Units Activated Partial Thromboplast Time 24.8 L 26.3-35.5 SEC Prothrombin Time 13.0 H 9.6-11.6 SEC Prothromb Time International Ratio 1.18 H 0.85-1.15 DIAGNOSTICS / RADIOLOGY RESULTS: [ ] PLAN Weaning from sedation slowly in the morning tomorrow obtain ABG's NEURO: Minimize central acting medications as possible. Maintain fall precautions, adequate lighting during the day PULMONARY: Supplemental 02 as needed. Maintain aspiration precautions at all times CARDIOVASCULAR: Follow hemodynamics. Vital signs per facility protocol GI & NUTRITION: Continue with nutritional support. Continue stool softeners and laxatives as needed. KIDNEYS & ELECTROLYTES: Strict monitoring of intake, output and overall fluid balance. Avoid nephrotoxic medications to the extent possible. Medications to be dosed according to renal function. Monitor electrolytes and replace as needed ENDOCRINE: Maintain blood glucose between 100-180 at all times. Hypoglycemia protocol in place INFECTIOUS DISEASE: Trend temperature, WBC and procalcitonin level Follow cultures, deescalate antibiotics as soon as possible. Panculture if new onset fever ONCOLOGY/HEMATOLOGY/COAGULATION: Monitor for s/s of bleeding Monitor hemoglobin, coagulation studies as needed SKIN: Pressure ulcer prevention per facility protocol Specialty mattress ORTHO/REHAB: Continue PT/OT Prophylaxis: Continue GI and DVT prophylaxis Code Status: Full Resuscitation Disposition: TBD Other: Total patient care time exceeds 35 minutes excluding all procedures. ATTESTATION BY PHYSICIAN Documentation assistance provided by a scribe, information recorded by the scribe was done at my direction and has been reviewed and validated by me." NORMA NARAYANAN MD I personally scribed for LADY GREEN MD ([email or web address]) on 09/15/24 at 23:26. Electronically submitted by Anushka Long ([id number]). LADY GREEN MD Sep 15, 2024 23:26
[2024-09-16] VITALS (147 sets, daily range): BP systolic -8–140; BP diastolic -9–96; PULSE 71–94; RESP 7–31; TEMP 97.4–100.4; O2SAT 90–98
[2024-09-16] MEDS: INSULIN humuLIN R 100 UNIT/ML 3ML SQ SCH (00:33)
[2024-09-16 00:43] LABS: ABG BASE EXCESS -7.8 mmol/L (-2.0-3.0); ABG HCO3 18.7 mmol/L (21.0-28.0); ABG OXYGEN SATURATION 93.3 % (94.0-98.0); ABG PCO2 42 mmHg (35-48); ABG PH 7.272 (7.350-7.450); CARBON MONOXIDE 1.3 % (0.5-1.5); HHb 6.6; PO2, ARTERIAL BG 80.4 mmHg (83.0-108.0); VENT MODE, BG AC VC (ROOM AIR)
[2024-09-16] MEDS: SODIUM BICARB 50MEQ 50ML VIAL IV ONE (01:24)
[2024-09-16] MEDS: CALCIUM GLUC 1GM/10ML VIAL IV ONE (01:24)
--- NOTE | 2024-09-16 01:45 | NUR ---
verified lasix order with benchmark as per [employer] Dr. kerns order lasix 80 mg iv q8h - as per Lucretia [employer] okay to give now. reported abg abnormal new orders 1 bicarb amp and replace calcium - noted and given. reported low 02 sat as well on 100 fio2 in the high 80s will cont to monitor pt. patient has been tolerating vent well.
[2024-09-16] MEDS: NOREPINEPHRINE 16MG/NS 250ML PREMIX IV SCH (02:11)
[2024-09-16] MEDS: MIDAZOLAM 100MG-0.9% NS 100ML 100ML BAG IV SCH (04:58)
--- NOTE | 2024-09-16 05:04 | NUR ---
reported earlier PTT higher than 139 on heparin drip as per protocol held for 60 min and decrease by 2 (17-2=15 units/kg/hr). held at 0400 am restarted at 0500 Addendum: 09/16/24 at 0507 by OUMOU ANDRADE RN RN no bleeding noted. right femoral intact no hematoma. soft. vitals stable on pressors.
[2024-09-16 05:51] LABS: BASOPHILS # (AUTO) 0.05 K/uL (0.00-0.20); BASOPHILS % (AUTO) 0.3 % (0.0-5.0); HEMATOCRIT 50.8 % (42-54); IMMATURE GRANULOCYTE ABSOLUTE 0.27 K/uL (0-1); MEAN CORPUSCULAR HEMOGLOBIN 23.6 pg (27.0-33.0); MEAN CORPUSCULAR HGB CONC 28.3 g/dL (32.0-36.0); MEAN CORPUSCULAR VOLUME 83.1 fL (79-99); MONOCYTES # (AUTO) 0.9 K/uL (0.1-1.0); MONOCYTES % (AUTO) 5.1 % (3.0-13.0); NEUTROPHILS # (AUTO) 14.6 K/uL (1.8-7.7); PLATELET COUNT (AUTO) 367 K/uL (130-400); RED BLOOD CELL COUNT(AUTO) 6.11 MIL/uL (4.50-6.20); RED CELL DISTRIBUTION WIDTH 20.7 % (11.0-15.5); WHITE BLOOD COUNT (AUTO) 16.8 K/uL (4.8-10.8)
[2024-09-16 05:56] LABS: CREATININE 1.4 mg/dL (0.5-1.3); MAGNESIUM 1.6 mg/dL (1.80-2.40); POTASSIUM 5.5 mmol/L (3.5-5.1)
[2024-09-16] MEDS: MAGNESIUM 2GM PREMIX 50ML 50 ML IV PRN (06:24)
--- NOTE | 2024-09-16 07:16 | PN ---
[facility] Cardiology Progress Note CARDIOLOGY PROGRESS NOTE August PROBLEMS: 1. Atrial flutter status post ablation September 15, 2024 requiring general anesthesia and pressor support 2. Pulmonary hypertension with secondary RV failure 3. COPD 4. Dyslipidemia 5. Chronic anticoagulation with Eliquis 6. Diabetes mellitus type 2 7. Dyslipidemia 8. History of deep vein thrombosis February 2024 9. Paroxysmal atrial fibrillation 10. Mild aortic stenosis The patient underwent atrial flutter ablation yesterday. He has significant RV dysfunction and pulmonary hypertension and required general anesthesia and pressor support. Brain natriuretic peptide level was 439. Blood pressure this morning is 110 systolic heart rate is in the 70s and regular. [place] [id number] hemoglobin 14 platelet count 125379. Potassium 5.5 BUN 27 creatinine 1.4 up from 1.0 on admission. The patient is receiving albuterol famotidine fentanyl IV furosemide 80 mg q.8 hours heparin protocol insulin scale Solu-Medrol norepinephrine and vasopressin. He remains intubated and sedated with fentanyl. He has good breath sounds bilaterally. He remains in sinus rhythm. I am concerned about his current IV furosemide dose. His LV function is normal and he has a dilated hypokinetic RV with some pulmonary hypertension. If the patient becomes prerenal we difficult for him to wean from the ventilator and off pressors. Would suggest we reduce his furosemide to 40 mg q.12 hours intravenously. Further weaning from the vent and pressors as per critical Care. AMY LUNDBERG MD Sep 16, 2024 07:16
[2024-09-16] MEDS: furoSEMIDE 40MG VIAL IV SCH (07:30)
[2024-09-16 07:54] LABS: ABG BASE EXCESS -7.2 mmol/L (-2.0-3.0); ABG HCO3 18.6 mmol/L (21.0-28.0); ABG OXYGEN SATURATION 91.4 % (94.0-98.0); ABG PCO2 39 mmHg (35-48); ABG PH 7.302 (7.350-7.450); PO2, ARTERIAL BG 66.3 mmHg (83.0-108.0); VENT MODE, BG AC (ROOM AIR)
--- NOTE | 2024-09-16 08:46 | EKG ---
[facility] Test Date: 2024-09-15 Test Time: 12:56:54 Pat Name: YEN ONEAL Department: [facility] Room: 207 1 Gender: M Exhibit Carpenter: [id number] : 1940 Requested By: VALENTIN OCONNOR Order Number: [id number] Reading MD: Stephen Velásquez Measurements Intervals Shirley Rate: 99 P: 0 NM: 0 QRS: -64 QRSD: 106 T: 242 QT: 401 QTc: 515 Interpretive Statements Atrial flutter Inferior infarct, old Repol abnrm, severe global ischemia (LM/MVD) Prolonged QT interval Compared to ECG 08/26/2024 18:11:49 Myocardial infarct finding now present Prolonged QT interval now present Sinus tachycardia no longer present Possible ischemia still present Electronically Signed On 09-16-2024 20:16:26 ASSISTANT DIRECTOR OF ADMISSIONS by Stephen Velásquez Please click the below link to view image of tracing.
[2024-09-16 09:45] LABS: ALBUMIN 2.6 g/dL (3.5-5.0); BILIRUBIN,TOTAL 3.1 mg/dL (0.2-1.0); CREATININE 1.6 mg/dL (0.5-1.3); POTASSIUM 5.2 mmol/L (3.5-5.1); TOTAL PROTEIN, SERUM 5.6 g/dL (6.0-8.3)
[2024-09-16] MEDS ORDERED: 0.9% NACL 500ML IV.SOLN 500 ML IV SCH (10:00)
[2024-09-16] MEDS: dexmedeTOMIDine 400MCG/NS100ML IV SCH (10:07)
[2024-09-16] MEDS: IpraTROPium 0.5 MG/2.5 ML INH IH SCH (10:13)
[2024-09-16] MEDS ORDERED: BUMETANIDE 2.5MG/10ML (DRIP) 80 ML IV SCH (10:30)
--- NOTE | 2024-09-16 10:45 | PN ---
[facility] PROGRESS NOTE Date Patient Seen: Sep 16, 2024 Time of Visit: 10:27 Supervising Physician: Kris Nguyen MD Primary Care Physician: Admitting team: [facility] hospitalist team Outpatient Specialists: Inpatient Consults: [facility], pulmonary/critical care team PROBLEM LIST: Combined cardiogenic shock with Septic shock not POA Right lower lobe pneumonia, suspected aspiration not POA ARDS PF Ratio report 66 Atrial fibrillation s/p ablation on 09/15/2024 -remained intubated s/p procedure due to respiratory distress during procedur e on 09/15/2024 Acute hypoxemic and hypercapnic respiratory failure Acute on chronic obstructive pulmonary exacerbation Acute on chronic CHF with EF of 40-45% on 2D echo 08/10/24 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 Qfwm-[id number] aortic stenosis Severe pulmonary hypertension RVSP 81.5 mm Hg on 2D echo 08/10/24 Chronic AFib, on chronic anticoagulation with the Eliquis Severe transaminitis 2/2 liver shock Pulmonary hypertension Mild moderate mitral regurgitation Hyperlipidemia Debility/frailty History of AKA, fatty liver INTERVAL HISTORY: Patient is 83 year old gentleman with underling hx of pulmonary htn, essential HTN, mild aortic stenosis, CHF, diagnose with Atrial flutter therefore he has been admitted and plan was to proceed with ablation, procedure done and he was noted to be on respiratory distress, he was intubated and remains sedated, as per patient will be very upset because he was intubated, at this time plan is to start him weaning off from sedation slowly in the morning tomorro obtain ABG's, we will follow up closely. 09/16-patient continues intubated on mechanical ventilation with a FiO2 of 100% and PEEP of five with a PMH of 66 unable to start SVTs. Patient is sedated with Precedex and fentanyl and Versed as needed. Dobutamine drip per Cardiology recommendation and currently on Levophed at 0.2 micrograms/kilogram per minute and vasopressin at 0.04 micrograms/kilogram per minute he continues with a heparin drip, and Eliquis from home hold. Liver enzymes severely elevated likely from liver shock. Poor urine output overnight 400 mL since yesterday we will start patient on albumin and 0.5 milligrams/hour and stopped Lasix pushes. Lactic acid trending down still slightly elevated at 5. WBCs trending down 16 .8 H&H is 14.4/50.8 with a platelet count of 653209. T-max was 100.4 and T low was 96.1 added doxycycline for some MRSA coverage in community-acquired pneumonia coverage. Potassium was 5.2 give Lokelma 10 mg x 1 dose BUN 33 creatinine 1.6 GFR of 42 glucose is 204 mg/dL lactic acid was 6.8 trending down at 5.9 ketones one total bili 3.1, patient with mild DKA with ketones of one anion gap of 15 and ABG showed ABG of pH of 7.33 pCO2 of 39 PO2 of 63.2 bicarb of 20. REVIEW OF SYSTEMS: Unable to obtain ROS from patient due to patient intubated and sedated. PHYSICAL EXAM: GENERAL: Intubated and sedated HEENT: EOMI, Sclera non icteric, moist mucosa. Endotracheal tube and OG in place. NECK: Supple, no JVD, trachea midline LUNGS: Upper lobes clear, lower lobes diminished bilaterally. No wheezes HEART: Regular rate and rhythm. Normal S1 and S2, without murmurs ABD: Abdomen soft, nontender. Bowel sounds present EXT: No clubbing cyanosis or + edema NEURO: Intubated and sedated Vital Signs (last 8hr) Date Time Temp Pulse Resp B/P (MAP) Pulse Ox O2 Delivery O2 Flow Rate FiO2 09/16/24 09:19 85 100 09/16/24 06:39 76 100 09/16/24 06:17 75 24 109/67 (81) 88 100 109/71 (84) 09/16/24 06:15 75 24 110/67 (81) 87 09/16/24 06:02 75 25 105/67 (80) 88 107/64 (78) 09/16/24 06:00 75 24 101/67 (78) 87 09/16/24 05:56 98/66 09/16/24 05:47 75 25 101/64 (76) 91 98/65 (76) 09/16/24 05:45 75 25 95/64 (74) 90 09/16/24 05:32 74 24 96/64 (75) 92 100 99/63 (75) 09/16/24 05:30 74 25 98/65 (76) 93 09/16/24 05:17 74 25 99/65 (76) 96 97/64 (75) 09/16/24 05:15 73 31 103/64 (77) 93 09/16/24 05:02 75 23 99/62 (74) 93 107/73 (84) 09/16/24 05:00 75 24 98/62 (74) 93 100 09/16/24 04:47 75 25 98/61 (73) 93 107/72 (84) 09/16/24 04:45 75 18 99/61 (74) 94 09/16/24 04:32 75 12 91/62 (72) 94 107/70 (82) 09/16/24 04:30 75 12 94/62 (73) 94 09/16/24 04:21 74 100 09/16/24 04:17 74 25 95/61 (72) 94 105/73 (84) 09/16/24 04:15 74 7 95/62 (73) 93 09/16/24 04:02 74 24 86/65 (72) 94 110/71 (84) 09/16/24 04:00 94 Ventilator+ 100 09/16/24 04:00 74 19 90/63 (72) 94 09/16/24 04:00 100 09/16/24 03:47 74 25 97/61 (73) 94 107/73 (84) 09/16/24 03:45 74 11 98/62 (74) 94 09/16/24 03:32 74 24 100/61 (74) 95 107/73 (84) 09/16/24 03:30 74 24 101/61 (74) 94 09/16/24 03:17 74 25 100/62 (75) 94 107/73 (84) 09/16/24 03:15 74 25 100/62 (75) 94 09/16/24 03:02 74 24 102/63 (76) 95 108/76 (87) 09/16/24 03:00 74 25 103/63 (76) 95 09/16/24 02:47 75 25 102/64 (77) 95 112/73 (86) 09/16/24 02:45 75 24 104/64 (77) 95 09/16/24 02:32 75 24 103/65 (78) 96 115/75 (88) 09/16/24 02:30 75 24 101/68 (79) 96 LABS: Hematology Labs: Test 09/16/24 03:25 09/14/24 12:10 Range/Units White Blood Count 16.8 H 4.8-10.8 K/uL Red Blood Count 6.11 4.50-6.20 MIL/uL Hemoglobin 14.4 14.0-18.0 g/dL Hematocrit 50.8 42-54 % Mean Corpuscular Volume 83.1 79-99 fL Mean Corpuscular Hemoglobin 23.6 L 27.0-33.0 pg Mean Corpuscular Hemoglobin Concent 28.3 L 32.0-36.0 g/dL Red Cell Distribution Width 20.7 H 11.0-15.5 % Platelet Count 367 130-400 K/uL Mean Platelet Volume 9.3 7.5-10.5 fL Immature Granulocyte % (Auto) 1.6 H 0-1 % Neutrophils (%) (Auto) 87.0 H 40.0-77.0 % Lymphocytes (%) (Auto) 6.0 L 21.0-51.0 % Monocytes (%) (Auto) 5.1 3.0-13.0 % Eosinophils (%) (Auto) 0.0 0.0-8.0 % Basophils (%) (Auto) 0.3 0.0-5.0 % Neutrophils # (Auto) 14.6 H 1.8-7.7 K/uL Lymphocytes # (Auto) 1.0 1.0-4.8 K/uL Monocytes # (Auto) 0.9 0.1-1.0 K/uL Eosinophils # (Auto) 0.00 0.00-0.70 K/uL Basophils # (Auto) 0.05 0.00-0.20 K/uL Absolute Immature Granulocyte (auto 0.27 0-1 K/uL Nucleated Red Blood Cells 2.0 H 0.0-0.19 % White Cell Morphology Comment See comments Red Blood Cell Morphology See comments Chemistry Labs: Test 09/16/24 08:53 09/16/24 05:50 09/16/24 03:25 09/15/24 18:15 Range/Units Sodium Level 142 136-145 mmol/L Potassium Level 5.2 H 3.5-5.1 mmol/L Chloride Level 105 101-111 mmol/L Carbon Dioxide Level 21 21-32 mmol/L Blood Urea Nitrogen 33 H 7-18 mg/dL Creatinine 1.6 H 0.5-1.3 mg/dL Glomerular Filtration Rate Calc 42 >90 mL/min Random Glucose 204 H 70-105 mg/dL Lactic Acid Level 6.8 H 0.8-2.5 mmol/L Total Calcium 8.4 L 8.5-10.1 mg/dL Total Bilirubin 3.1 H 0.2-1.0 mg/dL Aspartate Amino Transf (AST/SGOT) 4055 *H 10-37 U/L Alanine Aminotransferase (ALT/SGPT) 2595 *H 12-78 U/L Alkaline Phosphatase 313 H 50-136 U/L Total Protein 5.6 L 6.0-8.3 g/dL Albumin 2.6 L 3.5-5.0 g/dL Whole Blood Glucose 196 H 70-110 MG/DL Magnesium Level 1.60 L 1.80-2.40 mg/dL C-Reactive Protein, Quantitative 3.20 H 0.5-3.0 mg/L B-Type Natriuretic Peptide 522 H 0-100 pg/mL Procalcitonin < 0.05 L 0.05-0.5 ng/mL Coagulation Labs: Test 09/16/24 08:53 09/14/24 12:10 Range/Units Activated Partial Thromboplast Time > 139.0 *H 26.3-35.5 SEC Prothrombin Time 13.0 H 9.6-11.6 SEC Prothromb Time International Ratio 1.18 H 0.85-1.15 DIAGNOSTICS / RADIOLOGY RESULTS: IMAGING REPORT Signed PATIENT: YEN ONEAL MR#: [id number] : 1940 SEX: M AGE: 83 LOCATION: [facility] ORDER 33 STATUS: ADM IN REPORT#: [id number] SERVICE 1633 REASON: hypoxia ORDERING PHYSICIAN: JACKELINE AGUILAR PROCEDURE: CXR1VW - CHEST 1VW CHEST 1VW HISTORY: Hypoxia COMPARISON: 09/15/2024 FINDINGS: A frontal projection of the chest was obtained. There are bilateral pulmonary infiltrates suggestive of pulmonary vascular congestion with possible superimposed pneumonitis. The heart is borderline enlarged. Degenerative changes are seen. No evidence of aortic calcification is seen. IMPRESSION: 1. Bilateral pulmonary infiltrates are seen suggestive of pulmonary vascular congestion with possible superimposed pneumonitis. Mild interval worsening is seen with increase in right lower lung infiltrates. DICTATED BY: VAISHALI SCOTT MD DATE: 09/16/241801 ELECTRONICALLY SIGNED BY: VAISHALI SCOTT MD DATE: 09/16/241805 PLAN NEURO: Minimize central acting medications as possible. Fall Precautions. Well lighted room through the day and minimize interruptions through the night to prevent acute delirium. Maintain sedation with Precedex and fentanyl if needed at Versed drip. PULMONARY: Supplemental 02 as needed Titrate Fio2 to keep Spo2 > or = 90% DuoNebs and CPT as needed IS hourly while awake for pulmonary hygiene Out of bed to chair as tolerated VAP Bundle Wean FiO2 as tolerated PF ratio 66 Family refusing proning Ventilator settings adjusted to: FiO2 of 90%, peep of 7. respiratory rate of 24 , TV 480 CARDIOVASCULAR: Follow hemodynamics. Titrate vasopressor to keep MAP >65 or systolic blood pressure >95mmHg Continuous telemetry monitoring Vital signs per ICU protocol Dobutamine drip per Cardiology Follow cardiology recommendations Heparin drip for anticoagulation GI & NUTRITION: Continue nutritional support Aspirations precautions Prokinetic agents and laxatives as needed. NPO for now May start tube feedings feedings tomorrow KIDNEYS & ELECTROLYTES: Strict monitoring of intake and output Daily weights Avoid nephrotoxic agents Monitor electrolytes and replace as needed Goal urine output of 30mL/hr or 0.5mL/kg/hr Monitor kidneys closely Bumex drip at 0.5 milligrams/hour BNP q.4 hours per DKA protocol Intake and Output 09/16/24 07:00 Intake Total 1274.1 ml Output Total 1000 ml Balance 274.1 ml Intake IV Total 1274.1 ml Output Urine Total 1000 ml ENDOCRINE: Maintain blood glucose between 100-180 at all times. Insulin sliding scale for blood glucose management DKA protocol insulin drip INFECTIOUS DISEASE: Trend temperature. Neal-culture if febrile. Blood cultures -Gram-positive rods Respiratory cultures- Urine cultures - Antibiotics: Cefepime and doxycycline to cover for community-acquired pneumonia. Repeat blood cultures HEMATOLOGY & COAGULATION: Monitor H&H. Keep Hgb > 7 Transfuse 1 unit of PRBC for Hgb < 7 Transfuse 1 pack of platelets of platelets < 20, 000 Watch for any signs and symptoms of bleeding SKIN: Pressure ulcer prevention per facility protocol DVT prophylaxis with SCDs and heparin drip, Protonix b.i.d. Rehab: PT/OT Code Status: Full Resuscitation Disposition: [Admit to ICU] Other: Total patient critical care time exceeds 60 minutes excluding all procedures. JACKELINE AGUILAR [facility] Sep 16, 2024 10:45
--- NOTE | 2024-09-16 11:06 | PN ---
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 Pulmonary hypertension Chronic lung disease Interval History: intubated, sedated, on dobutmaine, levo & vasopressor Physical Examination: GENERAL: [sedated, intubated] HEAD: [Normal with no signs of head trauma.] LUNGS: [vent sounds] HEART: [Normal rate and rhythm..] VASC: [Peripheral pulses +2 bilaterally.] ABD: [soft, nontender, no masses.] EXT: [cool extremities.] SKIN: [No rashes or lesions noted.] NEURO: [sedated intubated.] Laboratory: [ ] Hematology Labs: Test 09/16/24 03:25 09/14/24 12:10 Range/Units White Blood Count 16.8 H 4.8-10.8 K/uL Red Blood Count 6.11 4.50-6.20 MIL/uL Hemoglobin 14.4 14.0-18.0 g/dL Hematocrit 50.8 42-54 % Mean Corpuscular Volume 83.1 79-99 fL Mean Corpuscular Hemoglobin 23.6 L 27.0-33.0 pg Mean Corpuscular Hemoglobin Concent 28.3 L 32.0-36.0 g/dL Red Cell Distribution Width 20.7 H 11.0-15.5 % Platelet Count 367 130-400 K/uL Mean Platelet Volume 9.3 7.5-10.5 fL Immature Granulocyte % (Auto) 1.6 H 0-1 % Neutrophils (%) (Auto) 87.0 H 40.0-77.0 % Lymphocytes (%) (Auto) 6.0 L 21.0-51.0 % Monocytes (%) (Auto) 5.1 3.0-13.0 % Eosinophils (%) (Auto) 0.0 0.0-8.0 % Basophils (%) (Auto) 0.3 0.0-5.0 % Neutrophils # (Auto) 14.6 H 1.8-7.7 K/uL Lymphocytes # (Auto) 1.0 1.0-4.8 K/uL Monocytes # (Auto) 0.9 0.1-1.0 K/uL Eosinophils # (Auto) 0.00 0.00-0.70 K/uL Basophils # (Auto) 0.05 0.00-0.20 K/uL Absolute Immature Granulocyte (auto 0.27 0-1 K/uL Nucleated Red Blood Cells 2.0 H 0.0-0.19 % White Cell Morphology Comment See comments Red Blood Cell Morphology See comments Chemistry Labs: Test 09/16/24 08:53 09/16/24 05:50 09/16/24 03:25 09/15/24 18:15 Range/Units Sodium Level 142 136-145 mmol/L Potassium Level 5.2 H 3.5-5.1 mmol/L Chloride Level 105 101-111 mmol/L Carbon Dioxide Level 21 21-32 mmol/L Blood Urea Nitrogen 33 H 7-18 mg/dL Creatinine 1.6 H 0.5-1.3 mg/dL Glomerular Filtration Rate Calc 42 >90 mL/min Random Glucose 204 H 70-105 mg/dL Lactic Acid Level 6.8 H 0.8-2.5 mmol/L Total Calcium 8.4 L 8.5-10.1 mg/dL Total Bilirubin 3.1 H 0.2-1.0 mg/dL Aspartate Amino Transf (AST/SGOT) 4055 *H 10-37 U/L Alanine Aminotransferase (ALT/SGPT) 2595 *H 12-78 U/L Alkaline Phosphatase 313 H 50-136 U/L Total Protein 5.6 L 6.0-8.3 g/dL Albumin 2.6 L 3.5-5.0 g/dL Whole Blood Glucose 196 H 70-110 MG/DL Magnesium Level 1.60 L 1.80-2.40 mg/dL C-Reactive Protein, Quantitative 3.20 H 0.5-3.0 mg/L B-Type Natriuretic Peptide 522 H 0-100 pg/mL Procalcitonin < 0.05 L 0.05-0.5 ng/mL Coagulation Labs: Test 09/16/24 08:53 09/14/24 12:10 Range/Units Activated Partial Thromboplast Time > 139.0 *H 26.3-35.5 SEC Prothrombin Time 13.0 H 9.6-11.6 SEC Prothromb Time International Ratio 1.18 H 0.85-1.15 Diagnostics / Radiology: reviewed Impression and Plan: 1. 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 Typical atrial flutter with RVR s/p CTI flutter line 3. Acute respiratory failure 4. JR 5. Elevated LFTs 2/2 #1 continue supportive care. allow RV to recover, keep dobutamine gtt. minimize positive pressure. AC guided by PTT. VALENTIN CAREY MD Sep 16, 2024 11:06
[2024-09-16] MEDS: hydroCORTisone SOD SUCCINATE 100 MG/2 ML VIAL IV SCH (11:10)
[2024-09-16] MEDS: NA ZIRCON CYCLOSIL(LOKELMA 10GM) PO ONE (11:10)
--- NOTE | 2024-09-16 11:43 | CONS ---
INFECTIOUS DISEASE CONSULTATION NOTE Date of Service: Sep 16, 2024 Reason for Consultation: Septic shock. Requesting Physician: Steff Sierra HISTORY OF PRESENT ILLNESS: This is an 83-year-old male patient with past medical history of COPD, congestive heart failure, atrial fibrillation, diabetes mellitus and hypertension who presented to the hospital for an elective atrial fibrillation ablation. Postprocedure however patient was on hypoxic and hypercapnic respiratory acidosis requiring mechanical ventilation. Was also hypotensive requiring vasopressor support. The preliminary results of the Blood culture col lected on admission is growing Gram-positive rods in 1 of 2 sets and the reason for this consult. Patient had a fever of 100.4 this morning and the WBC is 16.8. Patient has been started on cefepime IV. Patient is currently with elevated liver enzymes of AST of 4055 and ALT of 2595. We will discontinue cefepime and start patient on Meropenem 1 g IV every 12 hours. We will continue to follow patient's care. REVIEW OF SYSTEMS Unable to obtain. Patient is on ventilator support. PAST MEDICAL HISTORY: Diabetes mellitus. Peripheral vascular disease. Hypertension. Heart failure. Chronic obstructive pulmonary disease. Atrial fibrillation on anticoagulation. PAST SURGICAL HISTORY: Right mrbnh-goa-gktz amputation. PAST SOCIAL HISTORY: Unable to obtain. FAMILY HISTORY: Unable to obtain. Coded Allergies: No Known Drug Allergies (Unverified Allergy, Unknown, 04/07/17) PHYSICAL EXAM EYES: Anicteric. Pupils equal and reactive. HENT: No oral thrush seen, moist Oral mucosa. NECK: Supple, no JVD or thyromegaly. LUNGS: Good air entry. No rales, no rhonchi. On ventilatory support. CARDIOVASCULAR: S1, S2 regular. No murmur heard. ABDOMEN: Soft, non tender, bowel sounds present, no organomegaly CENTRAL NERVOUS SYSTEM: Intubated and sedated. SKIN: No rashes, no swelling. LYMPHATICS: No peripheral lymphadenopathy MUSCULOSKELETAL: No joint swelling, erythema or tenderness. EXTREMITIES: No cyanosis or clubbing. Right AKA. Left lower extremity edema. BACK: No deformity, no pressure ulcer. GENITOURINARY: No dysuria or hematuria. [place]o catheter. Vital Sign (Last 24 Hours) 09/15/24 09/16/24 09/16/24 10:45 06:17 09:19 Pulse 85 Resp 24 B/P (MAP) 109/67 (81) 109/71 (84) Pulse Ox 88 O2 Flow Rate 2.0 FiO2 100 Intake & Output (last 24hrs) 0 09/15/24 09/15/24 09/16/24 15:00 23:00 07:00 Intake Total 743.0 ml 463.4 ml Output Total 600 ml 400 ml Balance 143.0 ml 63.4 ml LABS: Laboratory: Test 09/16/24 11:19 09/16/24 11:15 09/16/24 08:53 09/16/24 07:53 Range/Units Whole Blood Glucose 233 H 70-110 MG/DL Whole Blood Ketones Quantitative 1.0 H 0.0-0.6 mmol/L Activated Partial Thromboplast Time > 139.0 *H 26.3-35.5 SEC Sodium Level 142 136-145 mmol/L Potassium Level 5.2 H 3.5-5.1 mmol/L Chloride Level 105 101-111 mmol/L Carbon Dioxide Level 21 21-32 mmol/L Blood Urea Nitrogen 33 H 7-18 mg/dL Creatinine 1.6 H 0.5-1.3 mg/dL Glomerular Filtration Rate Calc 42 >90 mL/min Random Glucose 204 H 70-105 mg/dL Lactic Acid Level 6.8 H 0.8-2.5 mmol/L Total Calcium 8.4 L 8.5-10.1 mg/dL Total Bilirubin 3.1 H 0.2-1.0 mg/dL Aspartate Amino Transf (AST/SGOT) 4055 *H 10-37 U/L Alanine Aminotransferase (ALT/SGPT) 2595 *H 12-78 U/L Alkaline Phosphatase 313 H 50-136 U/L Total Protein 5.6 L 6.0-8.3 g/dL Albumin 2.6 L 3.5-5.0 g/dL Blood Gas Specimen Type Arterial Arterial Blood pH 7.302 L 7.350-7.450 Arterial Blood Partial Pressure CO2 39 35-48 mmHg Arterial Blood Partial Pressure O2 66.3 L 83.0-108.0 mmHg Arterial Blood HCO3 18.6 L 21.0-28.0 mmol/L Arterial Blood Oxygen Saturation 91.4 L 94.0-98.0 % Arterial Blood Base Excess -7.2 L -2.0-3.0 mmol/L Blood Gas Temperature 37.0 35.5-37.0 CELSIUS Blood Gas Respiration Rate 24.0 min. Blood Gas Vent Mode AC ROOM AIR FiO2 100.0 % Blood Gas Tidal Volume 480 ml Blood Gas PEEP 5 cm H2O Blood Gas Specimen Comment VENICE ZELAYA,RN Test 09/16/24 03:25 09/16/24 00:41 09/15/24 18:15 09/14/24 12:10 Range/Units White Blood Count 16.8 H 4.8-10.8 K/uL Red Blood Count 6.11 4.50-6.20 MIL/uL Hemoglobin 14.4 14.0-18.0 g/dL Hematocrit 50.8 42-54 % Mean Corpuscular Volume 83.1 79-99 fL Mean Corpuscular Hemoglobin 23.6 L 27.0-33.0 pg Mean Corpuscular Hemoglobin Concent 28.3 L 32.0-36.0 g/dL Red Cell Distribution Width 20.7 H 11.0-15.5 % Platelet Count 367 130-400 K/uL Mean Platelet Volume 9.3 7.5-10.5 fL Immature Granulocyte % (Auto) 1.6 H 0-1 % Neutrophils (%) (Auto) 87.0 H 40.0-77.0 % Lymphocytes (%) (Auto) 6.0 L 21.0-51.0 % Monocytes (%) (Auto) 5.1 3.0-13.0 % Eosinophils (%) (Auto) 0.0 0.0-8.0 % Basophils (%) (Auto) 0.3 0.0-5.0 % Neutrophils # (Auto) 14.6 H 1.8-7.7 K/uL Lymphocytes # (Auto) 1.0 1.0-4.8 K/uL Monocytes # (Auto) 0.9 0.1-1.0 K/uL Eosinophils # (Auto) 0.00 0.00-0.70 K/uL Basophils # (Auto) 0.05 0.00-0.20 K/uL Absolute Immature Granulocyte (auto 0.27 0-1 K/uL Nucleated Red Blood Cells 2.0 H 0.0-0.19 % Magnesium Level 1.60 L 1.80-2.40 mg/dL Hemoglobin (Blood Gas) 14.9 13.5-17.5 g/dL Sodium (Blood Gas) 140 136-145 MMOL/L Bedside Potassium (Blood Gas) 5.3 H 3.4-4.5 MMOL/L Bedside Chloride (Blood Gas) 104 98-107 MMOL/L Bedside Glucose (Blood Gas) 218 H 65-95 MG/DL Bedside Ionized Calcium (Blood Gas) 1.11 L 1.15-1.33 MMOL/L Bedside Lactic Acid (Blood Gas) 6.85 *H 0.36-0.75 MMOL/L C-Reactive Protein, Quantitative 3.20 H 0.5-3.0 mg/L B-Type Natriuretic Peptide 522 H 0-100 pg/mL Procalcitonin < 0.05 L 0.05-0.5 ng/mL White Cell Morphology Comment See comments Red Blood Cell Morphology See comments Prothrombin Time 13.0 H 9.6-11.6 SEC Prothromb Time International Ratio 1.18 H 0.85-1.15 DIAGNOSTICS / RADIOLOGY: ATIENT: YEN ONEAL ACCT: [id number] LOC: [facility] U: [id number] AGE/SX: 83/M ROOM: [facility] RE09/15/[address]: PERLITA WOODRUFF MD : 1940 BED: 1 DIS: STATUS: ADM IN TLOC: SPEC: [id number] EDWIN: 09/15/24 STATUS: COMP REQ: [id number] RECD: 09/15/[address]: PERLITA WOODRUFF MD SOURCE: BLOOD ENTR: 09/15/24-[address]: VALENTIN CAREY MD SPDC: WANDY ROJAS MD, JAIRO P MD ORDERED: BLOOD CULTURE COMMENTS: What is the Source? BLOOD Procedure Result Simone Date-Time BLOOD CULT Final 09/16/24-1015 GRAM STAIN: GRAM POSITIVE RODS 1 OF 2 PEDI BLOOD CULTUR NOTIFIED NURSE VENICE LOJA AT 0946 ON 09/16/2024 NO YEAST SEEN DARIA CULTURE REPORT: IDENTIFICATION AND SUSCEPTIBILITIES TO FOLLOW Sent to Reference Lab. SEE [id number] FOR CULTURE RESULTS ASSESSMENT: Acute hypoxic and hypercapnic respiratory failure requiring ventilatory support. Gram-positive bacteremia. Urinary tract infection. Sepsis. Atrial fibrillation, status post elective ablation. Elevated liver enzymes. Acute renal failure. Diabetes mellitus. COPD. PLAN: Discontinue cefepime. Start Meropenem 1 g IV every 12 hours. We will follow up on the cultures. Continue critical care support. Continue ventilatory support. Continue monitoring glucose levels. Avoid nephrotoxic medications. We will monitor electrolytes. Thank you for allowing ID to participate in the care of this patient. This case was reviewed and discussed with my supervising physician and the above assessment and plan was formulated and agreed upon. ATTESTATION BY PHYSICIAN I have seen and examined the patient. I reviewed the documentation, medical decision making, and treatment plan as noted by the mid-level provider above. I agree with the findings and plan of care. HARJIT FLORES MD, MIRTA L [facility] Sep 16, 2024 11:43
[2024-09-16 11:54] LABS: ABG BASE EXCESS -5.4 mmol/L (-2.0-3.0); ABG OXYGEN SATURATION 89.7 % (94.0-98.0); ABG PCO2 39 mmHg (35-48); ABG PH 7.333 (7.350-7.450); CARBON MONOXIDE 1.2 % (0.5-1.5); HHb 10.2; PO2, ARTERIAL BG 63.2 mmHg (83.0-108.0); VENT MODE, BG AC (ROOM AIR)
[2024-09-16] MEDS ORDERED: MEROPENEM 1 GM in 0.9%NACL 100ML 100 ML IV SCH (12:00)
[2024-09-16] MEDS: doBUTamine 250MG/D5 250ML 250 ML IV SCH (12:00)
[2024-09-16] MEDS: INSULIN GLARgine 100 UNITS/ML 10 ML VIAL SQ SCH (12:02)
[2024-09-16] MEDS: MEROPENEM 1 GM VIAL IVPB SCH (12:08)
[2024-09-16 12:53] LABS: BILIRUBIN,URINE NEGATIVE (NEGATIVE); COLOR,URINE YELLOW (YELLOW); GLUCOSE, URINE (UA) NEGATIVE (NEGATIVE); KETONES,URINE NEGATIVE (NEGATIVE); LEUKOCYTE ESTERASE ,URINE 250 Leu/uL (NEGATIVE); NITRATE,URINE NEGATIVE (NEGATIVE); OCCULT BLOOD,URINE MODERATE (NEGATIVE); PROTEIN,URINE 30 mg/dL (NEGATIVE); UROBILINOGEN,URINE 0.2 mg/dL (0.2-1.0)
[2024-09-16 12:56] LABS: ADD UA MICROSCOPIC YES; APPEARANCE,URINE HAZY (CLEAR)
[2024-09-16 12:57] LABS: CREATININE,URINE RANDOM 19.98 mg/dL (30-135); SODIUM,URINE RANDOM 93 mmol/l (40-220)
[2024-09-16 13:08] LABS: BACTERIA,URINE FEW /HPF (None Seen); MUCUS,URINE MOD LPF (None Seen); RBC,URINE 51-100 /HPF (0-1); YEAST,URINE BUDDING RARE /HPF (None Seen)
--- NOTE | 2024-09-16 13:53 | PN ---
[facility] PROGRESS NOTE Date of Service: Sep 16, 2024 Time of Service: 13:49 SUBJECTIVE: 09/16 The patient has been seen and examined today during rounding, he remains admitted to the intensive care unit, remains intubated, mechanical ventilation. The patient is on fentanyl as well as Precedex. The patient also on Levophed, vasopressin drips. Patient on dobutamine, heparin drip and Bumex drip. BP 127/76, heart rate of 85, O2 saturation of 94-95%. CBC showing a WBC of 16.8. CMP with sodium 142, potassium 5.2, BUN 33, creatinine 1.6. AST of 4055, ALT 2595. ABG shows a pH of 7.33, pCO2 39, PO2 63.2, bicarbonate of 20. REVIEW OF SYSTEMS Unable to obtain since patient is intubated and sedated PHYSICAL EXAM GENERAL APPEARANCE: Patient is currently intubated and sedated NEUROLOGICAL: Unable to perform accurate neurological exam HEENT: Face is symmetric. Pupils are equal and reactive. Extraocular movements are intact. NECK: Supple. No JVD. No thyromegaly. No submental, submandibular, pre-/ postauricular, occipital or supraclavicular lymphadenopathy. CHEST: Normal chest expansion. No Telemetry. LUNGS: Minimal bilateral rhonchi. CARDIOVASCULAR: Regular. S1 and S2 normal. No appreciable rubs, murmurs or gallops. ABDOMEN: Soft, nontender, and nondistended. There is no rebound, voluntary guarding, or rigidity. : Deferred. No [place]. EXTREMITIES: History of right above-knee amputation. SKIN: No skin breakdown. Vital Signs (last 8hr) Date Time Temp Pulse Resp B/P (MAP) Pulse Ox O2 Delivery O2 Flow Rate FiO2 09/16/24 12:37 127/76 09/16/24 12:00 102/67 09/16/24 09:19 85 100 09/16/24 09:15 85 24 95/55 (68) 95 100 105/68 (80) 09/16/24 09:00 85 24 96/55 (69) 95 100 101/68 (79) 09/16/24 08:45 85 24 94/54 (67) 94 100 102/64 (77) 09/16/24 08:30 85 24 87/53 (64) 94 100 99/65 (76) 09/16/24 08:15 85 24 90/53 (65) 93 100 101/63 (76) 09/16/24 08:00 100.4 86 24 91/54 (66) 94 100 101/64 (76) 09/16/24 08:00 94 Ventilator+ 100 09/16/24 07:45 75 24 90/54 (66) 93 100 110/67 (81) 09/16/24 07:30 76 24 103/60 (74) 94 100 117/74 (88) 09/16/24 07:15 76 24 102/61 (75) 94 100 114/72 (86) 09/16/24 07:00 75 24 104/57 (73) 95 100 111/75 (87) 09/16/24 06:39 76 100 09/16/24 06:17 75 24 109/67 (81) 88 100 109/71 (84) 09/16/24 06:15 75 24 110/67 (81) 87 09/16/24 06:02 75 25 105/67 (80) 88 107/64 (78) 09/16/24 06:00 75 24 101/67 (78) 87 09/16/24 05:56 98/66 LABS: Laboratory: Test 09/16/24 13:02 09/16/24 12:50 09/16/24 12:40 09/16/24 11:52 Range/Units Lactic Acid Level 5.9 H 0.8-2.5 mmol/L Group A Streptococcus Rapid negative NEGATIVE Urine Color YELLOW YELLOW Urine Appearance HAZY CLEAR Urine pH 5.0 5.0-8.0 Urine Specific [place] 1.008 1.001-1.031 Urine Protein 30 H NEGATIVE mg/dL Urine Glucose (UA) NEGATIVE NEGATIVE mg/dL Urine Ketones NEGATIVE NEGATIVE mg/dL Urine Occult Blood MODERATE H NEGATIVE Urine Nitrate NEGATIVE NEGATIVE Urine Bilirubin NEGATIVE NEGATIVE mg/dL Urine Urobilinogen 0.2 0.2-1.0 mg/dL Urine Leukocyte Esterase 250 H NEGATIVE Nelson/uL Urine RBC 51-100 H 0-1 /HPF Urine WBC 11-25 H 0-1 /HPF Urine Amorphous Crystals (Auto) FEW None Seen /LPF Urine Bacteria FEW None Seen /HPF Urine Hyaline Casts 6-10 H 0-1 /LPF /LPF Urine Yeast RARE None Seen /HPF Urine Random Creatinine 19.98 L 30-135 mg/dL Urine Random Sodium 93 40-220 mmol/l Blood Gas Specimen Type Arterial Arterial Blood pH 7.333 L 7.350-7.450 Arterial Blood Partial Pressure CO2 39 35-48 mmHg Arterial Blood Partial Pressure O2 63.2 L 83.0-108.0 mmHg Arterial Blood HCO3 20.0 L 21.0-28.0 mmol/L Arterial Blood Oxygen Saturation 89.7 L 94.0-98.0 % Arterial Blood Base Excess -5.4 L -2.0-3.0 mmol/L Hemoglobin (Blood Gas) 14.7 13.5-17.5 g/dL Sodium (Blood Gas) 141 136-145 MMOL/L Bedside Potassium (Blood Gas) 4.9 H 3.4-4.5 MMOL/L Bedside Chloride (Blood Gas) 104 98-107 MMOL/L Bedside Glucose (Blood Gas) 219 H 65-95 MG/DL Bedside Ionized Calcium (Blood Gas) 1.10 L 1.15-1.33 MMOL/L Bedside Lactic Acid (Blood Gas) 6.10 *H 0.36-0.75 MMOL/L Blood Gas Temperature 37.0 35.5-37.0 CELSIUS Blood Gas Respiration Rate 24.0 min. Blood Gas Vent Mode AC ROOM AIR FiO2 90.0 % Blood Gas Tidal Volume 480 ml Blood Gas PEEP 7 cm H2O Blood Gas Specimen Comment VENICE ZELAYA,VERA Test 09/16/24 11:19 09/16/24 11:15 09/16/24 08:53 09/16/24 03:25 Range/Units Whole Blood Glucose 233 H 70-110 MG/DL Whole Blood Ketones Quantitative 1.0 H 0.0-0.6 mmol/L Activated Partial Thromboplast Time > 139.0 *H 26.3-35.5 SEC Sodium Level 142 136-145 mmol/L Potassium Level 5.2 H 3.5-5.1 mmol/L Chloride Level 105 101-111 mmol/L Carbon Dioxide Level 21 21-32 mmol/L Blood Urea Nitrogen 33 H 7-18 mg/dL Creatinine 1.6 H 0.5-1.3 mg/dL Glomerular Filtration Rate Calc 42 >90 mL/min Random Glucose 204 H 70-105 mg/dL Total Calcium 8.4 L 8.5-10.1 mg/dL Total Bilirubin 3.1 H 0.2-1.0 mg/dL Aspartate Amino Transf (AST/SGOT) 4055 *H 10-37 U/L Alanine Aminotransferase (ALT/SGPT) 2595 *H 12-78 U/L Alkaline Phosphatase 313 H 50-136 U/L Total Protein 5.6 L 6.0-8.3 g/dL Albumin 2.6 L 3.5-5.0 g/dL White Blood Count 16.8 H 4.8-10.8 K/uL Red Blood Count 6.11 4.50-6.20 MIL/uL Hemoglobin 14.4 14.0-18.0 g/dL Hematocrit 50.8 42-54 % Mean Corpuscular Volume 83.1 79-99 fL Mean Corpuscular Hemoglobin 23.6 L 27.0-33.0 pg Mean Corpuscular Hemoglobin Concent 28.3 L 32.0-36.0 g/dL Red Cell Distribution Width 20.7 H 11.0-15.5 % Platelet Count 367 130-400 K/uL Mean Platelet Volume 9.3 7.5-10.5 fL Immature Granulocyte % (Auto) 1.6 H 0-1 % Neutrophils (%) (Auto) 87.0 H 40.0-77.0 % Lymphocytes (%) (Auto) 6.0 L 21.0-51.0 % Monocytes (%) (Auto) 5.1 3.0-13.0 % Eosinophils (%) (Auto) 0.0 0.0-8.0 % Basophils (%) (Auto) 0.3 0.0-5.0 % Neutrophils # (Auto) 14.6 H 1.8-7.7 K/uL Lymphocytes # (Auto) 1.0 1.0-4.8 K/uL Monocytes # (Auto) 0.9 0.1-1.0 K/uL Eosinophils # (Auto) 0.00 0.00-0.70 K/uL Basophils # (Auto) 0.05 0.00-0.20 K/uL Absolute Immature Granulocyte (auto 0.27 0-1 K/uL Nucleated Red Blood Cells 2.0 H 0.0-0.19 % Magnesium Level 1.60 L 1.80-2.40 mg/dL Test 09/15/24 18:15 Range/Units C-Reactive Protein, Quantitative 3.20 H 0.5-3.0 mg/L B-Type Natriuretic Peptide 522 H 0-100 pg/mL Procalcitonin < 0.05 L 0.05-0.5 ng/mL Current Medications Medications (Trade) Dose Ordered Sig/[place] Route PRN Reason Start Time Stop Time Status Last Admin Dose Admin Albuterol (DUOneb) 1 UDVIAL Q6H PRN IH SHORTNESS OF BREATH 09/15/24 18:00 09/16/24 09:45 DC Budesonide (Pulmicort 0.25mg/2ml) 0.25 mg BIDRESP IH 09/15/24 18:00 10/15/24 17:59 09/16/24 10:13 0.25 MG Bumetanide 80 ml @ 2 mls/hr AD IV 09/16/24 10:30 10/16/24 10:29 Cefepime HCl (MAXipime 1 GM vial) 1 gm Q12H IVPB 09/16/24 14:00 09/16/24 11:26 DC Cefepime HCl (MAXipime 1 GM vial) 1 gm Q8H IVPB 09/15/24 18:00 09/16/24 09:15 DC 09/16/24 01:24 1 GM Dexmedetomidine/ Sodium Chloride (PRECEdex 400MCG/ 100ML-NS) 400 mcg PROTOCOL IV 09/16/24 10:00 10/16/24 09:59 09/16/24 10:07 400 MCG Dextrose (D50w) 50 ml AD PRN IV HYPOGLYCEMIA PROTOCOL 09/15/24 19:00 10/15/24 18:59 Dobutamine HCl/ Dextrose 250 ml @ 0 mls/hr PROTOCOL IV 09/16/24 11:30 10/16/24 11:29 09/16/24 12:00 14.4 MLS/HR Famotidine (Pepcid 20mg Vial) 20 mg BID IV 09/15/24 21:00 10/15/24 20:59 09/16/24 09:34 20 MG Fentanyl Citrate 100 ml @ 2.5 mls/hr PROTOCOL IV 09/15/24 22:30 09/22/24 22:29 Furosemide (LASix 40MG VIAL) 20 mg BID IV 09/16/24 21:00 09/16/24 10:18 DC Furosemide (LASix 40MG VIAL) 40 mg BID IV 09/16/24 07:30 09/16/24 10:07 DC 09/16/24 09:33 40 MG Furosemide (LASix 40MG VIAL) 80 mg Q8H IV 09/15/24 17:30 09/16/24 07:18 DC 09/16/24 01:45 80 MG Glucagon (Glucagon 1mg Kit) 1 mg AD PRN IM HYPOGLYCEMIA PROTOCOL 09/15/24 19:00 10/15/24 18:59 Heparin Sodium (Porcine) (HEParin 5,000 UNIT VIAL) DOSE PER WEIGHT BA... PROTOCOL PRN IV WT-BASED HEPARIN PROTOCOL 09/15/24 19:30 10/15/24 19:29 Heparin Sodium/ Dextrose 250 ml @ 0 mls/hr PROTOCOL IV 09/15/24 19:30 10/15/24 19:29 09/15/24 21:15 13.6 MLS/HR Hydrocortisone Sodium Succinate (Solu-corTEF 100MG) 50 mg Q6H IV 09/16/24 10:00 10/16/24 09:59 09/16/24 11:10 50 MG Insulin Glargine (LANtus 100 UNITS/ML 10 ML VIAL) 15 units BID@0730,2100 SQ 09/16/24 11:00 10/16/24 10:59 09/16/24 12:02 15 UNITS Insulin Glargine (LANtus 100 UNITS/ML 10 ML VIAL) 15 units BID@0730,2100 SQ 09/16/24 21:00 09/16/24 10:38 DC Insulin Human Regular (humuLIN R 100 UNIT/ML 3ML) INSULIN SLIDING SCAL... Q6H6 SQ 09/16/24 00:00 10/16/24 00:00 09/16/24 12:01 4 UNIT Ipratropium [place] (AtrovENT UD) 0.5 MG [id number] IH 09/16/24 10:00 10/16/24 09:59 09/16/24 10:13 0.5 MG Magnesium Sulfate 50 ml @ 0 mls/hr PROTOCOL PRN IV hypomagnesium 09/16/24 05:30 10/16/24 05:29 09/16/24 06:24 25 MLS/HR Meropenem (Merrem) 1 gm Q12H IVPB 09/16/24 12:00 09/26/24 11:59 09/16/24 12:08 1 GM Meropenem 1 gm/ Sodium Chloride 100 ml @ 33.333 mls/ hr Q12H IV 09/16/24 12:00 09/16/24 11:41 DC Methylprednisolone Sodium Succinate (Solu-medROL 40MG) 40 mg Q12H IVP 09/15/24 19:00 09/16/24 09:45 DC 09/16/24 06:00 40 MG Midazolam HCl (Midazolam 100mg-0.9% NS 100ml) 100 ml PROTOCOL IV 09/15/24 22:30 09/16/24 10:09 DC 09/16/24 04:58 100 ML Montelukast Sodium (SinguLAIR) 10 mg DAILY PO 09/17/24 09:00 10/17/24 08:59 Norepinephrine Bitartrate (Norepineph 16 Mg/250ml NS Premix) as per protocol PROTOCOL IV 09/15/24 22:30 10/15/24 22:29 09/16/24 02:11 0.04 MG Potassium Chloride 100 ml @ 50 mls/hr AD PRN IV POTASSIUM PROTOCOL 09/16/24 05:30 10/16/24 05:29 Sodium Chloride 250 ml @ 0 mls/hr Q0M IV 09/15/24 22:30 10/15/24 22:29 Sodium Chloride 500 ml @ 0 mls/hr Q0M IV 09/16/24 10:00 10/16/24 09:59 Sodium Chloride 1,000 ml @ 0 mls/hr Q0M IV 09/15/24 11:30 10/15/24 11:29 Vasopressin 40 units/Sodium Chloride 40 ml @ 0 mls/hr PROTOCOL IV 09/15/24 18:00 10/15/24 17:59 09/16/24 05:56 1.8 MLS/HR DIAGNOSTICS / RADIOLOGY: [ ] Exam Type: CHEST 1VW Clinical Information: ETT Placement Comparison: None Findings: Endotracheal tube is noted with tip approximately 6cm from sruthi and no interval changes are seen otherwise. IMPRESSION: Endotracheal tube tip as noted. ASSESSMENT: Acute hypoxic and hypercapnic respiratory failure POA Mixed respiratory and metabolic acidosis POA Acute on chronic COPD exacerbation POA Acute on chronic heart failure with systolic dysfunction with EF of 45-50% Community-acquired pneumonia rule out Hypotension differential cardiogenic versus sepsis Sepsis rule out Lactic acidosis Atrial fibrillation status post ablation on 09/15/2024 History of chronic anticoagulation with Eliquis Hypertension Hyperlipidemia Debility History of right AKA PLAN: - patient remains admitted to the ICU -in reference to acute hypoxic and hypercapnic respiratory failure. Remains intubated, mechanical ventilation, critical care consultation requested, follow input and recommendation, continue to follow chest x-ray, continue to follow ABG. -continue broad-spectrum IV antibiotics. -continue sedation with Precedex and fentanyl -patient remains on heparin drip, Bumex drip. -continue vasopressors with Levophed and vasopressin, wean as tolerated -continue the patient on dobutamine drip to keep map greater than 65 mmHg -continue to follow Cardiology input and recommendation -replace electrolytes IV per protocol -a.m. labs -GI and DVT prophylaxis -further orders per hospitalization course. Prognosis of this patient remains guarded. No family members at bedside to discuss goals of care. Total ICU time spent greater than 30 minutes. ARELIS PEREZ MD Sep 16, 2024 13:53
[2024-09-16] MEDS ORDERED: ceFEPime HCL 1 GM VIAL IVPB SCH (14:00)
--- NOTE | 2024-09-16 15:34 | NUR ---
SPOKE WITH DR. LUNDBERG REGARDING PENDING EKG. STATED TODAY'S EKG CAN BE CANCELLED AND WILL FOLLOW UP TOMORROW.
--- NOTE | 2024-09-16 15:44 | CONS ---
CONSULTATION NOTE Date of Service: Sep 16, 2024 Reason for Consultation: [Weeping legs & edema of left leg ] Requesting Physician: [Hospitalist ] HISTORY OF PRESENT ILLNESS: [ 83-year-old male with past medical history of COPD, CHF, hypertension, DM Type II, PVD status post right AKA, history of atrial fibrillation on anticoagulation who presented to the hospital secondary to atrial fibrillation. History is obtained from chart review, patient's had provider. Patient was scheduled for elective AFib ablation by Cardiology. Postprocedure the patient was noted to have respiratory acidosis and was unable to be liberated from the ventilator. Per patient has had chronic COPD and was having cough with associated sputum production. did not notice any new symptoms present. She denied any fever, chills. Additionally patient was also found to be hypotensive and needed to be started on Levophed and dobutamine. Patient was thereafter admitted in the ICU. Wound care consult ordered due to history of right above-knee amputation, bilateral edema lower extremities, skin tear left lower extremity. Primary nurse to assist was Neci & floor nurse. Patient not family present. ] REVIEW OF SYSTEMS Unable to obtain since patient is intubated and sedated PAST MEDICAL HISTORY: [ COPD, CHF, hypertension, diabetes mellitus type 2, PVD status post right above-knee amputation for history of atrial fibrillation on anticoagulation ] PAST SURGICAL HISTORY: [ History of atrial fibrillation ablation History of a right above-knee amputation ] PAST SOCIAL HISTORY: [ Negative ] FAMILY HISTORY: [ Negative ] Coded Allergies: No Known Drug Allergies (Unverified Allergy, Unknown, 04/07/17) PHYSICAL EXAM GENERAL APPEARANCE: Patient is currently intubated and sedated NEUROLOGICAL: Unable to perform accurate neurological exam HEENT: Face is symmetric. Pupils are equal and reactive. Extraocular movements are intact. NECK: Supple. No JVD. No thyromegaly. No submental, submandibular, pre- /postauricular, occipital or supraclavicular lymphadenopathy. CHEST: Normal chest expansion. No Telemetry. LUNGS: Mild wheezing noted bilaterally CARDIOVASCULAR: Regular. S1 and S2 normal. No appreciable rubs, murmurs or gallops. ABDOMEN: Soft, nontender, and nondistended. There is no rebound, voluntary guarding, or rigidity. : Deferred. [place] present. EXTREMITIES: History of right above-knee amputation. SKIN: No skin breakdown. Small skin tear of left lower extremity. Unable to assess posterior due to patient instability. Vital Sign (Last 24 Hours) 09/15/24 09/16/24 09/16/24 10:45 08:00 14:00 Pulse 91 Resp 25 B/P (MAP) 125/78 (94) 132/87 (102) Pulse Ox 96 O2 Delivery Ventilator+ O2 Flow Rate 2.0 FiO2 90 Intake & Output (last 24hrs) 09/15/24 09/15/24 09/16/24 15:00 23:00 07:00 Intake Total 743.0 ml 531.1 ml Output Total 600 ml 400 ml Balance 143.0 ml 131.1 ml LABS: Laboratory: Test 09/16/24 13:02 09/16/24 12:50 09/16/24 12:40 09/16/24 11:52 Range/Units Lactic Acid Level 5.9 H 0.8-2.5 mmol/L Group A Streptococcus Rapid negative NEGATIVE Urine Color YELLOW YELLOW Urine Appearance HAZY CLEAR Urine pH 5.0 5.0-8.0 Urine Specific [place] 1.008 1.001-1.031 Urine Protein 30 H NEGATIVE mg/dL Urine Glucose (UA) NEGATIVE NEGATIVE mg/dL Urine Ketones NEGATIVE NEGATIVE mg/dL Urine Occult Blood MODERATE H NEGATIVE Urine Nitrate NEGATIVE NEGATIVE Urine Bilirubin NEGATIVE NEGATIVE mg/dL Urine Urobilinogen 0.2 0.2-1.0 mg/dL Urine Leukocyte Esterase 250 H NEGATIVE Nelson/uL Urine RBC 51-100 H 0-1 /HPF Urine WBC 11-25 H 0-1 /HPF Urine Amorphous Crystals (Auto) FEW None Seen /LPF Urine Bacteria FEW None Seen /HPF Urine Hyaline Casts 6-10 H 0-1 /LPF /LPF Urine Yeast RARE None Seen /HPF Urine Random Creatinine 19.98 L 30-135 mg/dL Urine Random Sodium 93 40-220 mmol/l Blood Gas Specimen Type Arterial Arterial Blood pH 7.333 L 7.350-7.450 Arterial Blood Partial Pressure CO2 39 35-48 mmHg Arterial Blood Partial Pressure O2 63.2 L 83.0-108.0 mmHg Arterial Blood HCO3 20.0 L 21.0-28.0 mmol/L Arterial Blood Oxygen Saturation 89.7 L 94.0-98.0 % Arterial Blood Base Excess -5.4 L -2.0-3.0 mmol/L Hemoglobin (Blood Gas) 14.7 13.5-17.5 g/dL Sodium (Blood Gas) 141 136-145 MMOL/L Bedside Potassium (Blood Gas) 4.9 H 3.4-4.5 MMOL/L Bedside Chloride (Blood Gas) 104 98-107 MMOL/L Bedside Glucose (Blood Gas) 219 H 65-95 MG/DL Bedside Ionized Calcium (Blood Gas) 1.10 L 1.15-1.33 MMOL/L Bedside Lactic Acid (Blood Gas) 6.10 *H 0.36-0.75 MMOL/L Blood Gas Temperature 37.0 35.5-37.0 CELSIUS Blood Gas Respiration Rate 24.0 min. Blood Gas Vent Mode AC ROOM AIR FiO2 90.0 % Blood Gas Tidal Volume 480 ml Blood Gas PEEP 7 cm H2O Blood Gas Specimen Comment VENICE ZELAYARN Test 09/16/24 11:19 09/16/24 11:15 09/16/24 08:53 09/16/24 03:25 Range/Units Whole Blood Glucose 233 H 70-110 MG/DL Whole Blood Ketones Quantitative 1.0 H 0.0-0.6 mmol/L Activated Partial Thromboplast Time > 139.0 *H 26.3-35.5 SEC Sodium Level 142 136-145 mmol/L Potassium Level 5.2 H 3.5-5.1 mmol/L Chloride Level 105 101-111 mmol/L Carbon Dioxide Level 21 21-32 mmol/L Blood Urea Nitrogen 33 H 7-18 mg/dL Creatinine 1.6 H 0.5-1.3 mg/dL Glomerular Filtration Rate Calc 42 >90 mL/min Random Glucose 204 H 70-105 mg/dL Total Calcium 8.4 L 8.5-10.1 mg/dL Total Bilirubin 3.1 H 0.2-1.0 mg/dL Aspartate Amino Transf (AST/SGOT) 4055 *H 10-37 U/L Alanine Aminotransferase (ALT/SGPT) 2595 *H 12-78 U/L Alkaline Phosphatase 313 H 50-136 U/L Total Protein 5.6 L 6.0-8.3 g/dL Albumin 2.6 L 3.5-5.0 g/dL White Blood Count 16.8 H 4.8-10.8 K/uL Red Blood Count 6.11 4.50-6.20 MIL/uL Hemoglobin 14.4 14.0-18.0 g/dL Hematocrit 50.8 42-54 % Mean Corpuscular Volume 83.1 79-99 fL Mean Corpuscular Hemoglobin 23.6 L 27.0-33.0 pg Mean Corpuscular Hemoglobin Concent 28.3 L 32.0-36.0 g/dL Red Cell Distribution Width 20.7 H 11.0-15.5 % Platelet Count 367 130-400 K/uL Mean Platelet Volume 9.3 7.5-10.5 fL Immature Granulocyte % (Auto) 1.6 H 0-1 % Neutrophils (%) (Auto) 87.0 H 40.0-77.0 % Lymphocytes (%) (Auto) 6.0 L 21.0-51.0 % Monocytes (%) (Auto) 5.1 3.0-13.0 % Eosinophils (%) (Auto) 0.0 0.0-8.0 % Basophils (%) (Auto) 0.3 0.0-5.0 % Neutrophils # (Auto) 14.6 H 1.8-7.7 K/uL Lymphocytes # (Auto) 1.0 1.0-4.8 K/uL Monocytes # (Auto) 0.9 0.1-1.0 K/uL Eosinophils # (Auto) 0.00 0.00-0.70 K/uL Basophils # (Auto) 0.05 0.00-0.20 K/uL Absolute Immature Granulocyte (auto 0.27 0-1 K/uL Nucleated Red Blood Cells 2.0 H 0.0-0.19 % Magnesium Level 1.60 L 1.80-2.40 mg/dL Test 09/15/24 18:15 Range/Units C-Reactive Protein, Quantitative 3.20 H 0.5-3.0 mg/L B-Type Natriuretic Peptide 522 H 0-100 pg/mL Procalcitonin < 0.05 L 0.05-0.5 ng/mL DIAGNOSTICS / RADIOLOGY: [ ] PROBLEM LIST : Acute hypoxic and hypercapnic respiratory failure POA Mixed respiratory and metabolic acidosis POA Acute on chronic COPD exacerbation POA Acute on chronic heart failure with systolic dysfunction with EF of 45-50% Community-acquired pneumonia rule out Hypotension differential cardiogenic versus sepsis Sepsis rule out Lactic acidosis Atrial fibrillation status post ablation on 09/15/2024 History of chronic anticoagulation with Eliquis Hypertension Hyperlipidemia Debility History of right AKA Left lower extremity skin tear PLAN: [ Pressure ulcer prevention per facility protocol Bacitracin to left lower skin tear Evaluate patient's posterior side when stable] CHRISTEL BARBA Sep 16, 2024 15:44
--- NOTE | 2024-09-16 15:44 | NUR ---
[facility] Consult: Patient assessed by wound healing team. See wound assessment. Unable to assess buttocks due to patient intubated and hemodynamically unstable at this time. Assessment and recommendations provided to primary nurse. Education provided. Addendum: 09/16/24 at 1546 by JOEL RUTH RN RN/ Amended: Links added.
[2024-09-16] MEDS ORDERED: D5W-1/2 NS/20MEQ KCL 1,000 ML IV SCH (16:30)
[2024-09-16] MEDS ORDERED: DEXTROSE 5 %-0.45 % NACL 1,000 ML IV SCH (16:30)
[2024-09-16 17:04] LABS: ALBUMIN 2.5 g/dL (3.5-5.0); BILIRUBIN,TOTAL 2.1 mg/dL (0.2-1.0); CREATININE 1.8 mg/dL (0.5-1.3); POTASSIUM 4.5 mmol/L (3.5-5.1); TOTAL PROTEIN, SERUM 5.4 g/dL (6.0-8.3)
--- NOTE | 2024-09-16 18:06 | HMCIMG ---
CHEST 1VW HISTORY: Hypoxia COMPARISON: 09/15/2024 FINDINGS: A frontal projection of the chest was obtained. There are bilateral pulmonary infiltrates suggestive of pulmonary vascular congestion with possible superimposed pneumonitis. The heart is borderline enlarged. Degenerative changes are seen. No evidence of aortic calcification is seen. IMPRESSION: 1. Bilateral pulmonary infiltrates are seen suggestive of pulmonary vascular congestion with possible superimposed pneumonitis. Mild interval worsening is seen with increase in right lower lung infiltrates.
--- NOTE | 2024-09-16 18:09 | NUR ---
CM NOTE Patient vented. No family at bedside. CM attempted to complete initial assessment with spouse Nia Gregorio [phone] over the phone. Asked CM to call back tomorrow. CM to reattempt call or visit tomorrow. Addendum: 09/16/24 at 1811 by RADHA BATES Amended: Links added.
[2024-09-16] MEDS: INSULIN REGULAR, HUMAN 3ML 100 UNIT in 0.9%NACL 100ML 100 ML IV SCH (18:59)
[2024-09-16] MEDS: DOXYCYCLINE 100MG+NS 250ML 250 ML IV SCH (19:01)
--- NOTE | 2024-09-16 19:01 | NUR ---
SPEECH TRIGGER COMPLETED (INTUBATION). Pt IS A 72 Y.O. MALE ADMITTED SECONDARY TO ACUTE HYPOXIC AND HYPERCAPNIC RESPIRATORY. Pt HAS A PAST MEDICAL HISTORY SIGNIFICANT FOR HYPERTENSION, COPD, CHF, DM 2, AND PVD S/P R AKA. Pt CURRENTLY INTUBATED AND NPO. PLEASE REQUEST [employer] [facility] FOR BEDSIDE SWALLOW EVALUATION 24 HOURS POST EXTUBATION IF ANY S/S OF ASPIRATION ARISE WITH ORAL INTAKE. CHAPERON COORDINATED WITH NURSE MILLARD. ALL QUESTIONS ANSWERED. Addendum: 09/16/[address] IDA Amended: Links added.
--- NOTE | 2024-09-16 20:12 | HMCSR ---
APPROVED REPORT EXAM: Two-dimensional and M-mode echocardiogram with Doppler and color Doppler. INDICATION ICD: Cardiogenic Shock R57.0 2D Dimensions RVDd4.1 cmLVEF(%)46.9 (>50%)LVED Vol(simp.)82.9 mL IVSd0.7 (0.7-1.1cm)FS(%)23 %LVES Vol(simp.)62.4 mL LVDd4.3 (3.8-5.6cm)LA (2D)4.4 (1.6-4.0cm)LVEF(%, simp.)25 % PWd0.9 (0.7-1.1cm)Ao Root(2D)2.6 (2.0-3.7cm)LA ESV INDEX (4CH)34.00 mL/m2 IVSs0.9 cmLVOT diam2.2 (1.8-2.4cm) LVDs3.3 (2.5-4.0cm)IVC diam2.3 cm PWs1.1 cm M-Mode Dimensions EPSS1.0 cm LA (MM)4.0 (1.6-4.0cm) Ao Root(MM)2.3 (2.0-3.7cm) Aortic Valve AoV VTI0.3 mAo Mean GR6.0 mmHgLVOT VTI0.13 m MOHINDER (VMAX)1.9 cm2AVA (VTI) 1.9 cm2 Mitral Valve MV E Vmax51.9 cm/sDECEL Qdhc168 ms MV A Vmax36.4 cm/sP 1/2 T49 ms E/A ratio1.4MVA (PHT)4.5 cm2 Tricuspid Valve TR Vmax3.0 m/s TR Peak GR35.5 mmHg Left Ventricle Left ventricular cavity size is normal. There is global hypokinesis of the left ventricle. There is n ormal left ventricular wall thickness. LVEF is 20-25%. Unable to assess diastology due to poor tissue Doppler signals. Right Ventricle The right ventricle is normal size. Right ventricular systolic function is severely reduced. Atria The left atrium is severely dilated. The right atrium is severely dilated. Aortic Valve The aortic valve is calcified and displays decreased opening. No aortic regurgitation is present. Hem odynamically significant valvular aortic stenosis cannot be excluded. Mitral Valve Mitral valve leaflets open well. There is trace mitral valve regurgitation noted. There is no mitral valve stenosis. Tricuspid Valve The tricuspid valve leaflets appear normal. There is no tricuspid valve regurgitation noted. Pulmonic Valve Pulmonic valve is not well visualized. There is no pulmonic valvular regurgitation. Great Vessels The aortic root is normal in size. IVC is dilated and collapses <50% with inspiration. Pericardium No pericardial effusion. Other Information Quality : Technically Limited Technically limited study due to Patient could not be placed onto left side, intubated, COPD. Conclusion Technically difficult study. Left ventricular cavity size is normal. LVEF is 20-25% with global hypokinesis of the left ventricle. Unable to assess diastology due to poor tissue Doppler signals. Right ventricular systolic function is severely reduced. The left atrium appears severely dilated. No hemodynamically significant valvular abnormalities by Doppler. IVC is dilated and collapses <50% with inspiration. No pericardial effusion.
[2024-09-16] MEDS ORDERED: furoSEMIDE 40MG VIAL IV SCH (21:00)
[2024-09-16] MEDS ORDERED: INSULIN GLARgine 100 UNITS/ML 10 ML VIAL SQ SCH (21:00)
[2024-09-16] MEDS: FENTanyl 2500MCG+NS 250ML 250 ML IV SCH (22:46)
[2024-09-17] VITALS (131 sets, daily range): BP systolic 60–166; BP diastolic 38–92; PULSE 74–129; RESP 7–26; TEMP 99.1–99.9; O2SAT 97–99
[2024-09-17 00:52] LABS: CREATININE 1.8 mg/dL (0.5-1.3); POTASSIUM 3.9 mmol/L (3.5-5.1)
[2024-09-17 04:17] LABS: HEMATOCRIT 47.2 % (42-54); MEAN CORPUSCULAR HEMOGLOBIN 23.4 pg (27.0-33.0); MEAN CORPUSCULAR HGB CONC 30.1 g/dL (32.0-36.0); MEAN CORPUSCULAR VOLUME 77.6 fL (79-99); NUCLEATED RED BLOOD CELLS 2.1 % (0.0-0.19); RED BLOOD CELL COUNT(AUTO) 6.08 MIL/uL (4.50-6.20); RED CELL DISTRIBUTION WIDTH 20.7 % (11.0-15.5); WHITE BLOOD COUNT (AUTO) 12.5 K/uL (4.8-10.8)
[2024-09-17 04:17] LABS: SARS-CoV-2, RNA, NAAT NEGATIVE SARS CoV-2 (NEGATIVE)
[2024-09-17 04:20] LABS: INFLUENZA TYPE A Negative For Type A (NEGATIVE); INFLUENZA TYPE B Negative For Type B (NEGATIVE)
[2024-09-17 04:32] LABS: INR 2.07 (0.85-1.15); PROTHROMBIN TIME 21.6 SEC (9.6-11.6)
[2024-09-17 04:33] LABS: PARTIAL THROMBOPLASTIN TIME 85.7 SEC (26.3-35.5)
[2024-09-17 04:51] LABS: ALBUMIN 2.6 g/dL (3.5-5.0); BILIRUBIN,TOTAL 2.2 mg/dL (0.2-1.0); CREATININE 1.9 mg/dL (0.5-1.3); MAGNESIUM 1.7 mg/dL (1.80-2.40); POTASSIUM 3.7 mmol/L (3.5-5.1); TOTAL PROTEIN, SERUM 5.9 g/dL (6.0-8.3)
--- NOTE | 2024-09-17 05:57 | PN ---
[facility] Cardiology Progress Note CARDIOLOGY PROGRESS NOTE SEPTEMBER 17, 2024 PROBLEMS: 1. Atrial flutter status post ablation September 15, 2024 requiring general anesthesia and pressor support 2. Pulmonary hypertension with secondary RV failure 3. COPD 4. Dyslipidemia 5. Chronic anticoagulation with Eliquis 6. Diabetes mellitus type 2 7. Dyslipidemia 8. History of deep vein thrombosis February 2024 9. Paroxysmal atrial fibrillation 10. Mild aortic stenosis 11. Acute kidney injury This morning blood pressure is running between 131 150 systolic. Heart rate is in the 80s. [place] [id number] 1000 hemoglobin 14 platelet count [id number]. Potassium 3.7 BUN 50 creatinine 1.9 which is essentially unchanged over the past couple of days but up from a creatinine 1.0 on admission. Liver function tests are high possibly related to passive congestion of the liver secondary to RV failure. Chest x-ray shows normal-sized heart mild passive congestive changes. Minimal blunting of the costophrenic angles. There was no pneumothorax. Endotracheal tube appears to be in good position above the ca shailesh. The patient has diuresed 4 L in the last 24 hours. The patient continues on bumetanide infusion. He is sedated with Precedex and fentanyl. He is also receiving heparin protocol insulin scale antibiotics and pressors. Patient has a dilated hypokinetic right ventricle and normal LV function. I would use diuretics cautiously as this patient requires increased filling pressures in the right ventricle in order to maintain cardiac output. Pressors are being titrated down. Again he has put out 4 L and I would try to avoid over diuresing this patient who has RV failure not LV failure and requires higher filling pressures to maintain cardiac output. AMY LUNDBERG MD Sep 17, 2024 05:57
--- NOTE | 2024-09-17 07:44 | PN ---
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 levophed @ 16 and vasopressin @ 0.04. made 4L UOP on bumex gtt remains in sinus rhythm LFTs appear to be downtrending Physical Examination: GENERAL: [sedated, intubated] HEAD: [Normal with no signs of head trauma.] LUNGS: [vent sounds] HEART: [Normal rate and rhythm..] VASC: [Peripheral pulses +2 bilaterally.] ABD: [soft, nontender, no masses.] EXT: [cool extremities.] SKIN: [No rashes or lesions noted.] NEURO: [sedated intubated.] Laboratory: [ ] Hematology Labs: Test 09/17/24 03:55 09/16/24 03:25 Range/Units White Blood Count 12.5 H 4.8-10.8 K/uL Red Blood Count 6.08 4.50-6.20 MIL/uL Hemoglobin 14.2 14.0-18.0 g/dL Hematocrit 47.2 42-54 % Mean Corpuscular Volume 77.6 L 79-99 fL Mean Corpuscular Hemoglobin 23.4 L 27.0-33.0 pg Mean Corpuscular Hemoglobin Concent 30.1 L 32.0-36.0 g/dL Red Cell Distribution Width 20.7 H 11.0-15.5 % Platelet Count 230 # 130-400 K/uL Mean Platelet Volume 9.6 7.5-10.5 fL Nucleated Red Blood Cells 2.1 H 0.0-0.19 % Immature Granulocyte % (Auto) 1.6 H 0-1 % Neutrophils (%) (Auto) 87.0 H 40.0-77.0 % Lymphocytes (%) (Auto) 6.0 L 21.0-51.0 % Monocytes (%) (Auto) 5.1 3.0-13.0 % Eosinophils (%) (Auto) 0.0 0.0-8.0 % Basophils (%) (Auto) 0.3 0.0-5.0 % Neutrophils # (Auto) 14.6 H 1.8-7.7 K/uL Lymphocytes # (Auto) 1.0 1.0-4.8 K/uL Monocytes # (Auto) 0.9 0.1-1.0 K/uL Eosinophils # (Auto) 0.00 0.00-0.70 K/uL Basophils # (Auto) 0.05 0.00-0.20 K/uL Absolute Immature Granulocyte (auto 0.27 0-1 K/uL Chemistry Labs: Test 09/17/24 05:40 09/17/24 03:55 09/17/24 03:35 09/16/24 13:02 Range/Units Whole Blood Glucose 171 H 70-110 MG/DL Sodium Level 137 136-145 mmol/L Potassium Level 3.7 3.5-5.1 mmol/L Chloride Level 102 101-111 mmol/L Carbon Dioxide Level 25 21-32 mmol/L Blood Urea Nitrogen 50 H 7-18 mg/dL Creatinine 1.9 H 0.5-1.3 mg/dL Glomerular Filtration Rate Calc 34 >90 mL/min Random Glucose 171 H 70-105 mg/dL Total Calcium 7.6 L 8.5-10.1 mg/dL Magnesium Level 1.70 L 1.80-2.40 mg/dL Total Bilirubin 2.2 H 0.2-1.0 mg/dL Aspartate Amino Transf (AST/SGOT) 5525 *H 10-37 U/L Alanine Aminotransferase (ALT/SGPT) 4267 *H 12-78 U/L Alkaline Phosphatase 275 H 50-136 U/L B-Type Natriuretic Peptide 1900 H 0-100 pg/mL Total Protein 5.9 L 6.0-8.3 g/dL Albumin 2.6 L 3.5-5.0 g/dL Procalcitonin 0.71 H 0.05-0.5 ng/mL Lactic Acid Level 5.9 H 0.8-2.5 mmol/L Test 09/16/24 11:15 09/15/24 18:15 Range/Units Whole Blood Ketones Quantitative 1.0 H 0.0-0.6 mmol/L C-Reactive Protein, Quantitative 3.20 H 0.5-3.0 mg/L Coagulation Labs: Test 09/17/24 03:55 Range/Units Prothrombin Time 21.6 H 9.6-11.6 SEC Prothromb Time International Ratio 2.07 H 0.85-1.15 Activated Partial Thromboplast Time 85.7 H 26.3-35.5 SEC Diagnostics / Radiology: reviewed Impression and Plan: 1. 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 Typical atrial flutter with RVR s/p CTI flutter line 08/16/24 3. Acute respiratory failure 4. JR 5. Elevated LFTs 2/ #1 continue supportive care. allow RV to recover, keep dobutamine gtt (should be the last thing we wean). minimize positive pressure. suggest following Dr Collazo's recommendations regarding diuresis. wean vasopressors as able AC guided by PTT. VALENTIN CAREY MD Sep 17, 2024 07:44
[2024-09-17 08:57] LABS: CREATININE 1.9 mg/dL (0.5-1.3); POTASSIUM 3.7 mmol/L (3.5-5.1)
[2024-09-17] MEDS: BACITRACIN 28.4 GM OINT TP ONE (09:04)
[2024-09-17] MEDS: monteLUKAST sodIUM 10 MG TAB PO SCH (09:04)
[2024-09-17] MEDS: MAGNESIUM 2GM PREMIX 50ML 50 ML IV SCH (09:05)
--- NOTE | 2024-09-17 10:30 | HMCIMG ---
CHEST 1VW HISTORY: Hypoxia COMPARISON: 09/16/2024 FINDINGS: A frontal projection of the chest was obtained. Mild bilateral pulmonary infiltrates are seen may be related to mild pulmonary vascular congestion with possible superimposed pneumonitis. Endotracheal tube is seen with distal tip at 6.8 cm above sruthi. The heart is borderline enlarged. All the lines and tubes are again seen in place. No evidence of aortic calcification is seen. IMPRESSION: 1. Bilateral pulmonary infiltrates are seen suggestive of pulmonary vascular congestion with possible superimposed pneumonitis.
--- NOTE | 2024-09-17 12:24 | NUR ---
Nutritional Note: Chart, meds, and labs Reviewed. Current TF nepro 864kcal, 42gm pro/day with 1131mt total free H20/day. Recommend: -Vital 1.2 formula for critical illness and GI intolerance -Keep TF at 20ml/hr until pt stable and/or off pressors. Increase gradually based on tolerance. Goal rate 60ml/hr to provide 1728kcal, 108gm pro/day H20 flush as per MD. -Monitor renal and liver function. - Electrolyte replacements per protocol -Monitor TF tolerance, PO advancement , wt, and labs -adjust energy and protein goals as the pts condition improves. -If No BM >3days consider bowel stimulant. -Schedule outpatient RD f/u for long-term nutrition care. - Please notify RD if additional nutrition concerns arise. SEE RD Nutritional Assessment for additional assessment information. Addendum: 09/17/24 at [address] Amended: Links added.
--- NOTE | 2024-09-17 12:31 | PN ---
[facility] PROGRESS NOTE Date Patient Seen: Sep 17, 2024 Time of Visit: 12:31 Supervising Physician: Bud Funk MD Primary Care Physician: Admitting team: [facility] hospitalist team Outpatient Specialists: Inpatient Consults: [facility], pulmonary/critical care team PROBLEM LIST: Combined cardiogenic shock with Septic shock not POA Right lower lobe pneumonia, suspected aspiration not POA ( Gram neg Rods) ARDS PF Ratio 66, now 100 Atrial fibrillation s/p ablation on 09/15/2024 -remained intubated s/p procedure due to respiratory distress during procedure on 09/15/2024 DKA POA, resolved Acute hypoxemic and hypercapnic respiratory failure Acute on chronic obstructive pulmonary exacerbation Acute on chronic CHF with LVEF is 20-25% with global hypokinesis of the left ve ntricle on 2D echo 09/16/24 Severely reduced Rt ventricle systolic function on 2 D echo 09/16/24 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 [id number] aortic stenosis Severe pulmonary hypertension RVSP 81.5 mm Hg on 2D echo 08/10/24 Chronic AFib, on chronic anticoagulation with the Eliquis Severe transaminitis 2/2 liver shock Pulmonary hypertension Mild moderate mitral regurgitation Hyperlipidemia Debility/frailty History of AKA, fatty liver INTERVAL HISTORY: Patient is 83 year old gentleman with underling hx of pulmonary htn, essential HTN, mild aortic stenosis, CHF, diagnose with Atrial flutter therefore he has been admitted and plan was to proceed with ablation, procedure done and he was noted to be on respiratory distress, he was intubated and remains sedated, as per patient will be very upset because he was intubated, at this time plan is to start him weaning off from sedation slowly in the morning tomorro obtain ABG's, we will follow up closely. 09/16-patient continues intubated on mechanical ventilation with a FiO2 of 100% and PEEP of five with a PMH of 66 unable to start SVTs. Patient is sedated with Precedex and fentanyl and Versed as needed. Dobutamine drip per Cardiology recommendation and currently on Levophed at 0.2 micrograms/kilogram per minute and vasopressin at 0.04 micrograms/kilogram per minute he continues with a heparin drip, and Eliquis from home hold. Liver enzymes severely elevated likely from liver shock. Poor urine output overnight 400 mL since yesterday we will start patient on albumin and 0.5 milligrams/hour and stopped Lasix pushes. Lactic acid trending down still slightly elevated at 5. WBCs trending down 16.8 H&H is 14.4/50.8 with a platelet count of 035119. T-max was 100.4 and T low was 96.1 added doxycycline for some MRSA coverage in community-acquired pneumonia coverage. Potassium was 5.2 give Lokelma 10 mg x 1 dose BUN 33 creati nine 1.6 GFR of 42 glucose is 204 mg/dL lactic acid was 6.8 trending down at 5.9 ketones one total bili 3.1, patient with mild DKA with ketones of one anion gap of 15 and ABG showed ABG of pH of 7.33 pCO2 of 39 PO2 of 63.2 bicarb of 20. 12/20-patient continues sedated with Precedex and fentanyl and on mechanical ventilation. No further fevers with a T-max of 99.9 has been sustained this temperature in the last 24 hours. Heart rate in the 80s blood pressure 102/56 on multiple pressors with vasopressor at 0.04 micrograms/kilogram per minute and dobutamine at 3 micrograms/kilogram per minute per Cardiology. Urine output was 4.1 L in the last 24 hours on Bumex drip. Holding Bumex drip for now. On ABG pH of 7.5 pCO2 28 PO2 60.5 bicarb 21.3 with a ABG O2 saturation 90.9. PF ratio 100 new settings from ventilator as follows: Assist-control volume control tidal volume 480 respiratory rate of 20, FiO2 of 70% and PEEP of 5. Lactic acid trending down 3.95 from yesterday which was 6.10 WBCs improving now to a 0.5 H&H is normal platelet count is 165287. Chemistry creatinine 1.9 GFR of 34 glucose of 230 mg/dL total calcium. We will continue to wean pressors first vasopressin then dobutamine last. REVIEW OF SYSTEMS: Unable to obtain ROS from patient due to patient intubated and sedated. PHYSICAL EXAM: GENERAL: Intubated and sedated HEENT: EOMI, Sclera non icteric, moist mucosa. Endotracheal tube and OG in place. NECK: Supple, no JVD, trachea midline LUNGS: Upper lobes clear, lower lobes diminished bilaterally. No wheezes HEART: Regular rate and rhythm. Normal S1 and S2, without murmurs ABD: Abdomen soft, nontender. Bowel sounds present EXT: No clubbing cyanosis or + edema NEURO: Intubated and sedated Vital Signs (last 8hr) Date Time Temp Pulse Resp B/P (MAP) Pulse Ox O2 Delivery O2 Flow Rate FiO2 09/17/24 12:12 60 09/17/24 12:07 80 80 09/17/24 09:53 83 24 09/17/24 09:39 84 80 09/17/24 08:25 98 Ventilator+ 80 09/17/24 08:15 85 25 110/59 (76) 98 80 105/70 (82) 09/17/24 08:00 99.9 85 24 102/56 (71) 98 80 94/65 (75) 09/17/24 08:00 99.9 09/17/24 07:45 85 24 94/53 (67) 98 80 89/62 (71) 09/17/24 07:30 84 24 87/47 (60) 97 80 88/62 (71) 09/17/24 07:15 77 24 110/63 (79) 98 80 102/69 (80) 09/17/24 07:00 81 24 112/68 (83) 98 80 101/67 (78) 09/17/24 06:33 78 24 09/17/24 06:26 81 80 09/17/24 06:17 79 24 102/63 (76) 99 91/63 (72) 09/17/24 06:15 82 24 103/65 (78) 99 09/17/24 06:02 79 24 105/64 (78) 99 93/62 (72) 09/17/24 06:00 79 26 107/65 (79) 99 09/17/24 05:51 140/83 09/17/24 05:47 83 24 122/72 (89) 99 109/74 (86) 09/17/24 05:45 84 25 132/78 (96) 99 09/17/24 05:32 88 25 142/84 (103) 99 127/86 (100) 09/17/24 05:30 99.9 88 24 143/85 (104) 99 09/17/24 05:15 89 23 148/87 (107) 100 09/17/24 05:00 89 25 143/87 (105) 100 09/17/24 04:45 91 24 136/87 (103) 98 LABS: Hematology Labs: Test 09/17/24 03:55 09/16/24 03:25 Range/Units White Blood Count 12.5 H 4.8-10.8 K/uL Red Blood Count 6.08 4.50-6.20 MIL/uL Hemoglobin 14.2 14.0-18.0 g/dL Hematocrit 47.2 42-54 % Mean Corpuscular Volume 77.6 L 79-99 fL Mean Corpuscular Hemoglobin 23.4 L 27.0-33.0 pg Mean Corpuscular Hemoglobin Concent 30.1 L 32.0-36.0 g/dL Red Cell Distribution Width 20.7 H 11.0-15.5 % Platelet Count 230 # 130-400 K/uL Mean Platelet Volume 9.6 7.5-10.5 fL Nucleated Red Blood Cells 2.1 H 0.0-0.19 % Immature Granulocyte % (Auto) 1.6 H 0-1 % Neutrophils (%) (Auto) 87.0 H 40.0-77.0 % Lymphocytes (%) (Auto) 6.0 L 21.0-51.0 % Monocytes (%) (Auto) 5.1 3.0-13.0 % Eosinophils (%) (Auto) 0.0 0.0-8.0 % Basophils (%) (Auto) 0.3 0.0-5.0 % Neutrophils # (Auto) 14.6 H 1.8-7.7 K/uL Lymphocytes # (Auto) 1.0 1.0-4.8 K/uL Monocytes # (Auto) 0.9 0.1-1.0 K/uL Eosinophils # (Auto) 0.00 0.00-0.70 K/uL Basophils # (Auto) 0.05 0.00-0.20 K/uL Absolute Immature Granulocyte (auto 0.27 0-1 K/uL Chemistry Labs: Test 09/17/24 11:26 09/17/24 08:35 09/17/24 03:55 09/17/24 03:35 Range/Units Whole Blood Glucose 197 H 70-110 MG/DL Sodium Level 138 136-145 mmol/L Potassium Level 3.7 3.5-5.1 mmol/L Chloride Level 101 101-111 mmol/L Carbon Dioxide Level 27 21-32 mmol/L Blood Urea Nitrogen 54 H 7-18 mg/dL Creatinine 1.9 H 0.5-1.3 mg/dL Glomerular Filtration Rate Calc 34 >90 mL/min Random Glucose 230 H 70-105 mg/dL Lactic Acid Level 4.1 H 0.8-2.5 mmol/L Total Calcium 7.6 L 8.5-10.1 mg/dL Magnesium Level 1.70 L 1.80-2.40 mg/dL Total Bilirubin 2.2 H 0.2-1.0 mg/dL Aspartate Amino Transf (AST/SGOT) 5525 *H 10-37 U/L Alanine Aminotransferase (ALT/SGPT) 4267 *H 12-78 U/L Alkaline Phosphatase 275 H 50-136 U/L B-Type Natriuretic Peptide 1900 H 0-100 pg/mL Total Protein 5.9 L 6.0-8.3 g/dL Albumin 2.6 L 3.5-5.0 g/dL Procalcitonin 0.71 H 0.05-0.5 ng/mL Test 09/16/24 11:15 09/15/24 18:15 Range/Units Whole Blood Ketones Quantitative 1.0 H 0.0-0.6 mmol/L C-Reactive Protein, Quantitative 3.20 H 0.5-3.0 mg/L Coagulation Labs: Test 09/17/24 08:35 09/17/24 03:55 Range/Units Activated Partial Thromboplast Time 78.3 H 26.3-35.5 SEC Prothrombin Time 21.6 H 9.6-11.6 SEC Prothromb Time International Ratio 2.07 H 0.85-1.15 DIAGNOSTICS / RADIOLOGY RESULTS: [place] [address] IMAGING REPORT Signed PATIENT: YEN ONEAL MR#: [id number] : 1940 SEX: M AGE: 83 LOCATION: 2BH ORDER 1033 STATUS: ADM IN REPORT#: [id number] SERVICE 1032 REASON: cardiogenic shock (RV failure). Assess RV/LVEF ORDERING PHYSICIAN: VALENTIN CAREY MD PROCEDURE: ECHO [facility] - ECHO 2-D COMPLETE APPROVED REPORT EXAM: Two-dimensional and M-mode echocardiogram with Doppler and color Doppler. INDICATION ICD: Cardiogenic Shock R57.0 2D Dimensions RVDd 4.1 cm LVEF(%) 46.9 (>50%) LVED Vol(simp.) 82.9 mL IVSd 0.7 (0.7-1.1cm) FS(%) 23 % LVES Vol(simp.) 62.4 mL LVDd 4.3 (3.8-5.6cm) LA (2D) 4.4 (1.6-4.0cm) LVEF(%, simp.) 25 % PWd 0.9 (0.7-1.1cm) Ao Root(2D) 2.6 (2.0-3.7cm) LA ESV INDEX (4CH) 34.00 mL/m2 IVSs 0.9 cm LVOT diam 2.2 (1.8-2.4cm) LVDs 3.3 (2.5-4.0cm) IVC diam 2.3 cm PWs 1.1 cm M-Mode Dimensions EPSS 1.0 cm LA (MM) 4.0 (1.6-4.0cm) Ao Root(MM) 2.3 (2.0-3.7cm) Aortic Valve AoV VTI 0.3 m Ao Mean GR 6.0 mmHg LVOT VTI 0.13 m MOHINDER (VMAX) 1.9 cm2 MOHINDER (VTI) 1.9 cm2 Mitral Valve MV E Vmax 51.9 cm/s DECEL Time 148 ms MV A Vmax 36.4 cm/s P 1/2 T 49 ms E/A ratio 1.4 MVA (PHT) 4.5 cm2 Tricuspid Valve TR Vmax 3.0 m/s TR Peak GR 35.5 mmHg Left Ventricle Left ventricular cavity size is normal. There is global hypokinesis of the left ventricle. There is normal left ventricular wall thickness. LVEF is 20-25%. Unable to assess diastology due to poor tissue Doppler signals. Right Ventricle The right ventricle is normal size. Right ventricular systolic function is severely reduced. Atria The left atrium is severely dilated. The right atrium is severely dilated. Aortic Valve The aortic valve is calcified and displays decreased opening. No aortic regurgitation is present. Hemodynamically significant valvular aortic stenosis cannot be excluded. Mitral Valve Mitral valve leaflets open well. There is trace mitral valve regurgitation noted. There is no mitral valve stenosis. Tricuspid Valve The tricuspid valve leaflets appear normal. There is no tricuspid valve regurgitation noted. Pulmonic Valve Pulmonic valve is not well visualized. There is no pulmonic valvular regurgitation. Great Vessels The aortic root is normal in size. IVC is dilated and collapses <50% with inspiration. Pericardium No pericardial effusion. Other Information Quality : Technically Limited Technically limited study due to Patient could not be placed onto left side, intubated, COPD. Conclusion Technically difficult study. Left ventricular cavity size is normal. LVEF is 20-25% with global hypokinesis of the left ventricle. Unable to assess diastology due to poor tissue Doppler signals. Right ventricular systolic function is severely reduced. The left atrium appears severely dilated. No hemodynamically significant valvular abnormalities by Doppler. IVC is dilated and collapses <50% with inspiration. No pericardial effusion. DICTATED BY: LAZ LYNN MD DATE: 09/16/24 1336 ELECTRONICALLY SIGNED BY: LAZ LYNN MD DATE: 09/16/242011 PLAN NEURO: Minimize central acting medications as possible. Fall Precautions. Well lighted room through the day and minimize interruptions through the night to prevent acute delirium. Maintain sedation with Precedex and fentanyl if needed add Versed drip. PULMONARY: Supplemental 02 as needed Titrate Fio2 to keep Spo2 > or = 90% DuoNebs and CPT as needed IS hourly while awake for pulmonary hygiene Out of bed to chair as tolerated VAP Bundle Wean FiO2 as tolerated PF ratio 100 Family refusing proning Ventilator settings adjusted to: FiO2 of 70%, peep of 5. respiratory rate of 20, TV 480 CARDIOVASCULAR: Follow hemodynamics. Titrate vasopressor to keep MAP >65 or systolic blood pressure >95mmHg Continuous telemetry monitoring Vital signs per ICU protocol Dobutamine drip per Cardiology Follow cardiology recommendations Heparin drip for anticoagulation GI & NUTRITION: Continue nutritional support Aspirations precautions Prokinetic agents and laxatives as needed. NPO for now May start tube feedings feedings tomorrow KIDNEYS & ELECTROLYTES: Strict monitoring of intake and output Daily weights Avoid nephrotoxic agents Monitor electrolytes and replace as needed Goal urine output of 30mL/hr or 0.5mL/kg/hr Monitor kidneys closely Bumex drip at 0.5 milligrams/hour BNP q.4 hours per DKA protocol Intake and Output 09/16/24 07:00 Intake Total 1274.1 ml Output Total 1000 ml Balance 274.1 ml Intake IV Total 1274.1 ml Output Urine Total 1000 ml ENDOCRINE: Maintain blood glucose between 100-180 at all times. Insulin sliding scale for blood glucose management DKA protocol insulin drip INFECTIOUS DISEASE: Trend temperature. Neal-culture if febrile. Blood cultures -Gram-positive rods Respiratory cultures- Urine cultures - Antibiotics: Meropenem per ID Follow ID recommendations. HEMATOLOGY & COAGULATION: Monitor H&H. Keep Hgb > 7 Transfuse 1 unit of PRBC for Hgb < 7 Transfuse 1 pack of platelets of platelets < 20, 000 Watch for any signs and symptoms of bleeding SKIN: Pressure ulcer prevention per facility protocol DVT prophylaxis with SCDs and heparin drip, Protonix b.i.d. Rehab: PT/OT Code Status: Full Resuscitation Disposition: [Admit to ICU] Other: Total patient critical care time exceeds 60 minutes excluding all procedures. JACKELINE AGUILAR [facility] Sep 17, 2024 12:31
--- NOTE | 2024-09-17 13:04 | HMCIMG ---
CHEST 1VW HISTORY: Pneumonia COMPARISON: 09/17/2024 FINDINGS: A frontal projection of the chest was obtained. Mild bilateral pulmonary infiltrates are seen may be related to mild pulmonary vascular congestion with possible superimposed pneumonitis. The heart is borderline enlarged. Degenerative changes are seen. No evidence of aortic calcification is seen. IMPRESSION: 1. Mild bilateral pulmonary infiltrates are seen may be related to mild pulmonary vascular congestion with possible superimposed pneumonitis.
--- NOTE | 2024-09-17 13:43 | PN ---
[facility] PROGRESS NOTE Date of Service: Sep 17, 2024 Time of Service: 13:38 SUBJECTIVE: 09/16 The patient has been seen and examined today during rounding, he remains admitted to the intensive care unit, remains intubated, mechanical ventilation. The patient is on fentanyl as well as Precedex. The patient also on Levophed, vasopressin drips. Patient on dobutamine, heparin drip and Bumex drip. BP 127/76, heart rate of 85, O2 saturation of 94-95%. CBC showing a WBC of 16.8. CMP with sodium 142, potassium 5.2, BUN 33, creatinine 1.6. AST of 4055, ALT 2595. ABG shows a pH of 7.33, pCO2 39, PO2 63.2, bicarbonate of 20. 09/17 the patient has been seen and examined today during my rounding, remains admitted to the intensive care unit, remains intubated, mechanical ventilation, on vasopressors with vasopressin, remains on dobutamine drip. sedated with Precedex and fentanyl, the patient remains on heparin drip. Blood pressure 110/59, heart rate of 85, saturating 98% on mechanical ventilation, FiO2 80%. Laboratory data with a white blood cell count trending down at 12.5, hemoglobin 14.2, hematocrit 47.2, sodium 138, potassium 3.7, BUN of 54, creatinine 1.9, liver enzymes with the AST 5525, ALT 4267. ABG showing a pH of 7.33, pCO2 39, PO2 63.2. Chest x-ray showing mild bilateral pulmonary infiltrates maybe related to mild pulmonary vascular congestion with a possible superimposed pneumonitis. REVIEW OF SYSTEMS Unable to obtain since patient is intubated and sedated PHYSICAL EXAM GENERAL APPEARANCE: Patient is currently intubated and sedated NEUROLOGICAL: Unable to perform accurate neurological exam HEENT: Face is symmetric. Pupils are equal and reactive. Extraocular movements are intact. NECK: Supple. No JVD. No thyromegaly. No submental, submandibular, pre- /postauricular, occipital or supraclavicular lymphadenopathy. CHEST: Normal chest expansion. No Telemetry. LUNGS: Minimal bilateral rhonchi. CARDIOVASCULAR: Regular. S1 and S2 normal. No appreciable rubs, murmurs or gallops. ABDOMEN: Soft, nontender, and nondistended. There is no rebound, voluntary guarding, or rigidity. : Deferred. No [place]. EXTREMITIES: History of right above-knee amputation. SKIN: No skin breakdown. Vital Signs (last 8hr) Date Time Temp Pulse Resp B/P (MAP) Pulse Ox O2 Delivery O2 Flow Rate FiO2 09/17/24 12:12 60 09/17/24 12:07 80 80 09/17/24 09:53 83 24 09/17/24 09:39 84 80 09/17/24 08:25 98 Ventilator+ 80 09/17/24 08:15 85 25 110/59 (76) 98 80 105/70 (82) 09/17/24 08:00 99.9 85 24 102/56 (71) 98 80 94/65 (75) 09/17/24 08:00 99.9 09/17/24 07:45 85 24 94/53 (67) 98 80 89/62 (71) 09/17/24 07:30 84 24 87/47 (60) 97 80 88/62 (71) 09/17/24 07:15 77 24 110/63 (79) 98 80 102/69 (80) 09/17/24 07:00 81 24 112/68 (83) 98 80 101/67 (78) 09/17/24 06:33 78 24 09/17/24 06:26 81 80 09/17/24 06:17 79 24 102/63 (76) 99 91/63 (72) 09/17/24 06:15 82 24 103/65 (78) 99 09/17/24 06:02 79 24 105/64 (78) 99 93/62 (72) 09/17/24 06:00 79 26 107/65 (79) 99 09/17/24 05:51 140/83 09/17/24 05:47 83 24 122/72 (89) 99 109/74 (86) 09/17/24 05:45 84 25 132/78 (96) 99 LABS: Laboratory: Test 09/17/24 11:26 09/17/24 08:35 09/17/24 03:55 09/17/24 03:50 Range/Units Whole Blood Glucose 197 H 70-110 MG/DL Activated Partial Thromboplast Time 78.3 H 26.3-35.5 SEC Sodium Level 138 136-145 mmol/L Potassium Level 3.7 3.5-5.1 mmol/L Chloride Level 101 101-111 mmol/L Carbon Dioxide Level 27 21-32 mmol/L Blood Urea Nitrogen 54 H 7-18 mg/dL Creatinine 1.9 H 0.5-1.3 mg/dL Glomerular Filtration Rate Calc 34 >90 mL/min Random Glucose 230 H 70-105 mg/dL Lactic Acid Level 4.1 H 0.8-2.5 mmol/L Total Calcium 7.6 L 8.5-10.1 mg/dL White Blood Count 12.5 H 4.8-10.8 K/uL Red Blood Count 6.08 4.50-6.20 MIL/uL Hemoglobin 14.2 14.0-18.0 g/dL Hematocrit 47.2 42-54 % Mean Corpuscular Volume 77.6 L 79-99 fL Mean Corpuscular Hemoglobin 23.4 L 27.0-33.0 pg Mean Corpuscular Hemoglobin Concent 30.1 L 32.0-36.0 g/dL Red Cell Distribution Width 20.7 H 11.0-15.5 % Platelet Count 230 # 130-400 K/uL Mean Platelet Volume 9.6 7.5-10.5 fL Nucleated Red Blood Cells 2.1 H 0.0-0.19 % Prothrombin Time 21.6 H 9.6-11.6 SEC Prothromb Time International Ratio 2.07 H 0.85-1.15 Magnesium Level 1.70 L 1.80-2.40 mg/dL Total Bilirubin 2.2 H 0.2-1.0 mg/dL Aspartate Amino Transf (AST/SGOT) 5525 *H 10-37 U/L Alanine Aminotransferase (ALT/SGPT) 4267 *H 12-78 U/L Alkaline Phosphatase 275 H 50-136 U/L B-Type Natriuretic Peptide 1900 H 0-100 pg/mL Total Protein 5.9 L 6.0-8.3 g/dL Albumin 2.6 L 3.5-5.0 g/dL Influenza Type A Antigen Negative For Type A NEGATIVE Influenza Type B Antigen Negative For Type B NEGATIVE SARS-CoV-2, RNA, NAAT NEGATIVE SARS CoV-2 NEGATIVE Test 09/17/24 03:35 09/16/24 12:50 09/16/24 12:40 09/16/24 11:52 Range/Units Procalcitonin 0.71 H 0.05-0.5 ng/mL Group A Streptococcus Rapid negative NEGATIVE Urine Color YELLOW YELLOW Urine Appearance HAZY CLEAR Urine pH 5.0 5.0-8.0 Urine Specific [place] 1.008 1.001-1.031 Urine Protein 30 H NEGATIVE mg/dL Urine Glucose (UA) NEGATIVE NEGATIVE mg/dL Urine Ketones NEGATIVE NEGATIVE mg/dL Urine Occult Blood MODERATE H NEGATIVE Urine Nitrate NEGATIVE NEGATIVE Urine Bilirubin NEGATIVE NEGATIVE mg/dL Urine Urobilinogen 0.2 0.2-1.0 mg/dL Urine Leukocyte Esterase 250 H NEGATIVE Nelson/uL Urine RBC 51-100 H 0-1 /HPF Urine WBC 11-25 H 0-1 /HPF Urine Amorphous Crystals (Auto) FEW None Seen /LPF Urine Bacteria FEW None Seen /HPF Urine Hyaline Casts 6-10 H 0-1 /LPF /LPF Urine Yeast RARE None Seen /HPF Urine Random Creatinine 19.98 L 30-135 mg/dL Urine Random Sodium 93 40-220 mmol/l Blood Gas Specimen Type Arterial Arterial Blood pH 7.333 L 7.350-7.450 Arterial Blood Partial Pressure CO2 39 35-48 mmHg Arterial Blood Partial Pressure O2 63.2 L 83.0-108.0 mmHg Arterial Blood HCO3 20.0 L 21.0-28.0 mmol/L Arterial Blood Oxygen Saturation 89.7 L 94.0-98.0 % Arterial Blood Base Excess -5.4 L -2.0-3.0 mmol/L Hemoglobin (Blood Gas) 14.7 13.5-17.5 g/dL Sodium (Blood Gas) 141 136-145 MMOL/L Bedside Potassium (Blood Gas) 4.9 H 3.4-4.5 MMOL/L Bedside Chloride (Blood Gas) 104 98-107 MMOL/L Bedside Glucose (Blood Gas) 219 H 65-95 MG/DL Bedside Ionized Calcium (Blood Gas) 1.10 L 1.15-1.33 MMOL/L Bedside Lactic Acid (Blood Gas) 6.10 *H 0.36-0.75 MMOL/L Blood Gas Temperature 37.0 35.5-37.0 CELSIUS Blood Gas Respiration Rate 24.0 min. Blood Gas Vent Mode AC ROOM AIR FiO2 90.0 % Blood Gas Tidal Volume 480 ml Blood Gas PEEP 7 cm H2O Blood Gas Specimen Comment VENICE ZELAYARN Test 09/16/24 11:15 09/16/24 03:25 09/15/24 18:15 Range/Units Whole Blood Ketones Quantitative 1.0 H 0.0-0.6 mmol/L Immature Granulocyte % (Auto) 1.6 H 0-1 % Neutrophils (%) (Auto) 87.0 H 40.0-77.0 % Lymphocytes (%) (Auto) 6.0 L 21.0-51.0 % Monocytes (%) (Auto) 5.1 3.0-13.0 % Eosinophils (%) (Auto) 0.0 0.0-8.0 % Basophils (%) (Auto) 0.3 0.0-5.0 % Neutrophils # (Auto) 14.6 H 1.8-7.7 K/uL Lymphocytes # (Auto) 1.0 1.0-4.8 K/uL Monocytes # (Auto) 0.9 0.1-1.0 K/uL Eosinophils # (Auto) 0.00 0.00-0.70 K/uL Basophils # (Auto) 0.05 0.00-0.20 K/uL Absolute Immature Granulocyte (auto 0.27 0-1 K/uL C-Reactive Protein, Quantitative 3.20 H 0.5-3.0 mg/L Current Medications Medications (Trade) Dose Ordered Sig/[place] Route PRN Reason Start Time Stop Time Status Last Admin Dose Admin Albuterol (DUOneb) 1 UDVIAL Q6H PRN IH SHORTNESS OF BREATH 09/15/24 18:00 09/16/24 09:45 DC Budesonide (Pulmicort 0.25mg/2ml) 0.25 mg BIDRESP IH 09/15/24 18:00 10/15/24 17:59 09/17/24 06:32 0.25 MG Bumetanide 80 ml @ 2 mls/hr AD IV 09/16/24 10:30 10/16/24 10:29 Hold Cefepime HCl (MAXipime 1 GM vial) 1 gm Q12H IVPB 09/16/24 14:00 09/16/24 11:26 DC Cefepime HCl (MAXipime 1 GM vial) 1 gm Q8H IVPB 09/15/24 18:00 09/16/24 09:15 DC 09/16/24 01:24 1 GM Dexmedetomidine/ Sodium Chloride (PRECEdex 400MCG/ 100ML-NS) 400 mcg PROTOCOL IV 09/16/24 10:00 10/16/24 09:59 09/17/24 13:04 400 MCG Dextrose (D50w) 50 ml AD PRN IV HYPOGLYCEMIA PROTOCOL 09/15/24 19:00 10/15/24 18:59 Dextrose/Sodium Chloride 1,000 ml @ 0 mls/hr AD IV 09/16/24 16:30 09/17/24 12:30 DC Dobutamine HCl/ Dextrose 250 ml @ 0 mls/hr PROTOCOL IV 09/16/24 11:30 10/16/24 11:29 09/17/24 05:51 14.4 MLS/HR Doxycycline Hyclate 250 ml @ 125 mls/hr Q12H IV 09/16/24 16:30 09/26/24 16:29 09/17/24 04:33 125 MLS/HR Famotidine (Pepcid 20mg Vial) 20 mg BID IV 09/15/24 21:00 10/15/24 20:59 09/17/24 09:03 20 MG Fentanyl Citrate 100 ml @ 2.5 mls/hr PROTOCOL IV 09/15/24 22:30 09/16/24 21:37 DC Fentanyl/Sodium Chloride 250 ml @ 2.5 mls/hr PROTOCOL IV 09/16/24 22:00 09/21/24 21:59 09/16/24 22:46 2.5 MLS/HR Furosemide (LASix 40MG VIAL) 20 mg BID IV 09/16/24 21:00 09/16/24 10:18 DC Furosemide (LASix 40MG VIAL) 40 mg BID IV 09/16/24 07:30 09/16/24 10:07 DC 09/16/24 09:33 40 MG Furosemide (LASix 40MG VIAL) 80 mg Q8H IV 09/15/24 17:30 09/16/24 07:18 DC 09/16/24 01:45 80 MG Glucagon (Glucagon 1mg Kit) 1 mg AD PRN IM HYPOGLYCEMIA PROTOCOL 09/15/24 19:00 10/15/24 18:59 Heparin Sodium (Porcine) (HEParin 5,000 UNIT VIAL) DOSE PER WEIGHT BA... PROTOCOL PRN IV WT-BASED HEPARIN PROTOCOL 09/15/24 19:30 10/15/24 19:29 Heparin Sodium/ Dextrose 250 ml @ 0 mls/hr PROTOCOL IV 09/15/24 19:30 10/15/24 19:29 09/16/24 20:53 8.8 MLS/HR Hydrocortisone Sodium Succinate (Solu-corTEF 100MG) 50 mg Q6H IV 09/16/24 10:00 10/16/24 09:59 09/17/24 09:04 50 MG Insulin Glargine (LANtus 100 UNITS/ML 10 ML VIAL) 15 units BID@0730,2100 SQ 09/16/24 11:00 10/16/24 10:59 09/17/24 05:52 15 UNITS Insulin Glargine (LANtus 100 UNITS/ML 10 ML VIAL) 15 units BID@0730,2100 SQ 09/16/24 21:00 09/16/24 10:38 DC Insulin Human Regular (humuLIN R 100 UNIT/ML 3ML) INSULIN SLIDING SCAL... Q6H6 SQ 09/16/24 00:00 09/17/24 12:31 DC 09/17/24 12:01 2 UNIT Insulin Human Regular (humuLIN R 100 UNIT/ML 3ML) INSULIN SLIDING SCAL... Q6H6 SQ 09/17/24 18:00 10/17/24 17:59 Insulin Human Regular 100 unit/ Sodium Chloride 101 ml @ 0 mls/hr PROTOCOL IV 09/16/24 16:30 09/17/24 12:30 DC 09/16/24 18:59 8 MLS/HR Ipratropium [place] (AtrovENT UD) 0.5 MG [id number] IH 09/16/24 10:00 10/16/24 09:59 09/17/24 09:53 0.5 MG Magnesium Sulfate 50 ml @ 0 mls/hr PROTOCOL IV 09/16/24 16:30 09/17/24 12:30 DC 09/17/24 09:05 50 MLS/HR Magnesium Sulfate 50 ml @ 0 mls/hr PROTOCOL PRN IV hypomagnesium 09/16/24 05:30 09/16/24 16:34 DC 09/16/24 06:24 25 MLS/HR Meropenem (Merrem) 1 gm Q12H IVPB 09/16/24 12:00 09/26/24 11:59 09/17/24 12:00 1 GM Meropenem 1 gm/ Sodium Chloride 100 ml @ 33.333 mls/ hr Q12H IV 09/16/24 12:00 09/16/24 11:41 DC Methylprednisolone Sodium Succinate (Solu-medROL 40MG) 40 mg Q12H IVP 09/15/24 19:00 09/16/24 09:45 DC 09/16/24 06:00 40 MG Midazolam HCl (Midazolam 100mg-0.9% NS 100ml) 100 ml PROTOCOL IV 09/15/24 22:30 09/16/24 10:09 DC 09/16/24 04:58 100 ML Montelukast Sodium (SinguLAIR) 10 mg DAILY PO 09/17/24 09:00 10/17/24 08:59 09/17/24 09:04 10 MG Norepinephrine Bitartrate (Norepineph 16 Mg/250ml NS Premix) as per protocol PROTOCOL IV 09/15/24 22:30 10/15/24 22:29 09/16/24 18:58 0.1 MG Potassium Chloride/Dextrose/ Sod Cl 1,000 ml @ 0 mls/hr AD IV 09/16/24 16:30 09/17/24 12:30 DC Potassium Chloride 100 ml @ 50 mls/hr AD PRN IV POTASSIUM PROTOCOL 09/16/24 05:30 10/16/24 05:29 Sodium Chloride 250 ml @ 0 mls/hr Q0M IV 09/15/24 22:30 09/16/24 16:36 DC Sodium Chloride 500 ml @ 0 mls/hr Q0M IV 09/16/24 10:00 10/16/24 09:59 Sodium Chloride 1,000 ml @ 0 mls/hr Q0M IV 09/15/24 11:30 10/15/24 11:29 Vasopressin 40 units/Sodium Chloride 40 ml @ 0 mls/hr PROTOCOL IV 09/15/24 18:00 10/15/24 17:59 09/16/24 23:47 1.8 MLS/HR DIAGNOSTICS / RADIOLOGY: [ ] ASSESSMENT: Acute hypoxic and hypercapnic respiratory failure POA Mixed respiratory and metabolic acidosis POA Acute on chronic COPD exacerbation POA Acute on chronic heart failure with systolic dysfunction with EF of 45-50% Community-acquired pneumonia rule out Hypotension differential cardiogenic versus sepsis Sepsis rule out Lactic acidosis Atrial fibrillation status post ablation on 09/15/2024 History of chronic anticoagulation with Eliquis Hypertension Hyperlipidemia Debility History of right AKA PLAN: - patient remains admitted to the ICU -continue intubation and mechanical ventilation -continue telemetry monitoring -continue the patient on dobutamine -continue the patient on vasopressin -continue the patient Precedex -continue heparin drip -follow critical care input and recommendation as well as Cardiology and electrophysiology recommendation -replace electrolytes IV per protocol -a.m. labs -GI and DVT prophylaxis -further orders per hospitalization course. Prognosis of this patient remains guarded. No family members at bedside to discuss goals of care. Total ICU time spent greater than 30 minutes. ARELIS PEREZ MD Sep 17, 2024 13:43
[2024-09-17 14:05] LABS: ABG BASE EXCESS -0.4 mmol/L (-2.0-3.0); ABG HCO3 21.3 mmol/L (21.0-28.0); ABG OXYGEN SATURATION 90.9 % (94.0-98.0); ABG PCO2 28 mmHg (35-48); ABG PH 7.502 (7.350-7.450); CARBON MONOXIDE 1.2 % (0.5-1.5); PO2, ARTERIAL BG 60.5 mmHg (83.0-108.0); VENT MODE, BG AC (ROOM AIR)
[2024-09-17] MEDS: BUMETANIDE 1MG/4ML VIAL IVP SCH (14:30)
--- NOTE | 2024-09-17 16:46 | NUR ---
DC PLAN PATIENT VENTED. SPOUSE HAD LEFT. FROM LAST ADMISSION ON Aug: PATIENT LIVES WITH SPOUSE, INDEPENDENT ABLE TO PERFORM ADL'S. PATIENT HAS A WALKER, WHEEL CHAIR, 02. FAILED TO EXTUBATE POST ABLATION. Addendum: 09/17/24 at 1649 by HUMBERTO ANDREWS RN CM Amended: Links added.
[2024-09-17 16:47] LABS: BILIRUBIN,TOTAL 3.4 mg/dL (0.2-1.0); POTASSIUM 3.7 mmol/L (3.5-5.1)
[2024-09-17 16:48] LABS: ALBUMIN 2.4 g/dL (3.5-5.0); TOTAL PROTEIN, SERUM 5.5 g/dL (6.0-8.3)
--- NOTE | 2024-09-17 17:45 | EKG ---
[facility] Test Date: 2024-09-17 Test Time: 17:44:44 Pat Name: YEN ONELA Department: [facility] Room: 207 1 Gender: M [employer]: [id number] : 1940 Requested By: VALENTIN OCONNOR Order Number: [id number] Reading MD: Reynaldo Nicholson Measurements Intervals [place] Rate: 109 P: 0 NC: 0 QRS: -79 QRSD: 96 T: 237 QT: 358 QTc: 482 Interpretive Statements Atrial flutter with variable AV block Left axis deviation ST & T wave abnormality, consider inferolateral ischemia Compared to ECG 09/15/2024 12:56:54 Left-axis deviation now present ST (T wave) deviation now present Myocardial infarct finding no longer present Early repolarization no longer present Prolonged QT interval no longer present Possible ischemia still present Electronically Signed On 09-17-2024 19:38:14 INTERACTIVE MEDIA PROJECT MANAGER by Reynaldo Nicholson Please click the below link to view image of tracing.
[2024-09-17] MEDS: INSULIN humuLIN R 100 UNIT/ML 3ML SQ SCH (18:12)
--- NOTE | 2024-09-17 18:47 | HMCIMG ---
Exam Type: CHEST 1VW Clinical Information: PICC LINE PLACEMENT Comparison: None Findings: RightPICC line is noted with tip within the distal superior vena cava and there are no other interval changes. IMPRESSION: Right PICC line as noted.
[2024-09-17] MEDS: AMIOdarone 150MG VIAL 150 MG in DEXTROSE 5%-WATER 100 ML IV SCH (19:20)
[2024-09-17] MEDS: LACTULOSE 20 GM/30 ML UDCUP PO SCH (21:55)
--- NOTE | 2024-09-17 22:04 | PN ---
INFECTIOUS DISEASE PROGRESS NOTE Date of Service: Sep 17, 2024 SUBJECTIVE: This is an 83-year-old male patient with past medical history of COPD, congestive heart failure, atrial fibrillation, diabetes mellitus and hypertension who presented to the hospital for an elective atrial fibrillation ablation. Postprocedure however patient was on hypoxic and hypercapnic respiratory acidosis requiring mechanical ventilation. Was also hypotensive requiring vasopressor support. Patient was seen and examined at bedside in the ICU room 207. Patient is currently intubated and sedated. Continues on vasopressor support. Patient has been having low-grade fevers throughout the night, temperature is 99.9 with a WBC of 12.5. We will continue meropenem and doxycycline has also been added to the antibiotic regimen. We will continue to follow patient's care. PHYSICAL EXAM EYES: Anicteric. Pupils equal and reactive. HENT: No oral thrush seen, moist Oral mucosa. NECK: Supple, no JVD or thyromegaly. LUNGS: Good air entry. No rales, no rhonchi. On ventilatory support. CARDIOVASCULAR: S1, S2 regular. No murmur heard. ABDOMEN: Soft, non tender, bowel sounds present, no organomegaly CENTRAL NERVOUS SYSTEM: Intubated and sedated. SKIN: No rashes, no swelling. LYMPHATICS: No peripheral lymphadenopathy MUSCULOSKELETAL: No joint swelling, erythema or tenderness. EXTREMITIES: No cyanosis or clubbing. Right AKA. Left lower extremity edema. BACK: No deformity, no pressure ulcer. GENITOURINARY: No dysuria or hematuria. [place] catheter. Vital Sign (Last 12 Hours) 09/17/24 09/17/24 09/17/24 09/17/24 10:00 10:15 10:30 10:45 Pulse 80 94 90 93 Resp B/P (MAP) 141/74 (96) 89/52 (64) 129/68 (88) 111/61 (78) 137/87 (104) 117/44 (68) 127/80 (96) 105/72 (83) Pulse Ox 98 98 99 97 FiO2 80 80 80 80 09/17/24 09/17/24 09/17/24 09/17/24 11:00 11:15 11:30 11:45 Pulse 91 75 82 80 Resp B/P (MAP) 137/74 (95) 136/69 (91) 140/74 (96) 138/71 (93) 134/84 (101) 127/76 (93) 133/79 (97) 128/80 (96) Pulse Ox 98 97 99 98 FiO2 80 70 70 70 09/17/24 09/17/24 09/17/24 09/17/24 12:00 12:00 12:00 12:07 Temp 99.7 99.7 Pulse 80 80 Resp 24 B/P (MAP) 141/72 (95) 132/69 (90) Pulse Ox 97 99 O2 Delivery Ventilator+ FiO2 70 70 80 09/17/24 09/17/24 09/17/24 09/17/24 12:12 12:15 12:30 12:45 Pulse 78 78 81 Resp 24 B/P (MAP) 143/70 (94) 140/66 (90) 139/65 (89) 132/78 (96) 127/79 (95) 133/81 (98) Pulse Ox 97 96 96 FiO2 60 70 70 70 09/17/24 09/17/24 09/17/24 09/17/24 13:00 13:15 13:30 13:45 Pulse 77 76 76 76 Resp 24 B/P (MAP) 141/64 (89) 118/55 (76) 105/50 (68) 96/47 (63) 133/81 (98) 111/68 (82) 100/61 (74) 94/60 (71) Pulse Ox 95 95 96 96 FiO2 70 70 70 70 09/17/24 09/17/24 09/17/24 09/17/24 13:59 14:00 14:06 14:15 Pulse 74 75 88 Resp 24 B/P (MAP) 97/47 (64) 105/52 (69) 94/59 (71) 105/65 (78) Pulse Ox 96 98 FiO2 70 70 70 09/17/24 09/17/24 09/17/24 09/17/24 14:30 14:45 15:00 15:15 Pulse 75 75 76 78 Resp B/P (MAP) 104/49 (67) 97/46 (63) 96/45 (62) 94/45 (61) 100/62 (75) 94/60 (71) 93/59 (70) 93/63 (73) Pulse Ox 97 98 97 98 FiO2 70 70 70 70 09/17/24 09/17/24 09/17/24 09/17/24 15:30 15:45 15:48 16:00 Temp 99.5 Pulse 76 76 78 Resp 20 20 B/P (MAP) 103/49 (67) 98/47 (64) 94/54 (67) 93/58 (70) Pulse Ox 98 98 FiO2 70 70 70 09/17/24 09/17/24 09/17/24 09/17/24 16:00 16:00 16:15 16:30 Temp 99.5 Pulse 80 78 75 Resp 20 20 20 B/P (MAP) 94/45 (61) 100/47 (64) 107/49 (68) 99/53 (68) 96/57 (70) Pulse Ox 98 98 98 98 O2 Delivery Ventilator+ FiO2 70 70 70 70 09/17/24 09/17/24 09/17/24 09/17/24 16:45 17:00 17:15 17:30 Pulse 75 85 125 124 Resp 20 21 19 20 B/P (MAP) 104/49 (67) 101/51 (68) 89/50 (63) 102/52 (69) 103/58 (73) 101/61 (74) 98/53 (68) 98/51 (67) Pulse Ox 98 98 98 99 FiO2 70 70 70 70 09/17/24 09/17/24 09/17/24 09/17/24 17:45 18:00 18:15 18:30 Pulse 116 114 111 114 Resp 22 18 21 20 B/P (MAP) 99/52 (68) 103/67 (79) 101/66 (78) 109/66 (80) 94/65 (75) 100/62 (75) 98/45 (62) 99/58 (72) Pulse Ox 98 98 98 98 FiO2 70 70 70 70 09/17/24 09/17/24 09/17/24 09/17/24 18:45 18:59 21:13 21:17 Pulse 107 113 118 107 Resp 20 22 B/P (MAP) 107/63 (78) 99/55 (70) Pulse Ox 98 FiO2 70 70 70 09/17/24 21:30 B/P (MAP) 121/63 Intake & Output (last 24hrs) 09/16/24 09/16/24 09/17/24 15:00 23:00 07:00 Intake Total 925.0 ml 849.0 ml 401.0 ml Output Total 1400 ml 2700 ml Balance 925.0 ml -551.0 ml -2299.0 ml LABS: Laboratory: Test 09/17/24 17:53 09/17/24 15:10 09/17/24 14:03 09/17/24 08:35 Range/Units Whole Blood Glucose 259 H 70-110 MG/DL Activated Partial Thromboplast Time 61.0 H 26.3-35.5 SEC Sodium Level 140 136-145 mmol/L Potassium Level 3.7 3.5-5.1 mmol/L Chloride Level 101 101-111 mmol/L Carbon Dioxide Level 25 21-32 mmol/L Blood Urea Nitrogen 61 H 7-18 mg/dL Creatinine 2.0 H 0.5-1.3 mg/dL Glomerular Filtration Rate Calc 32 >90 mL/min Random Glucose 282 H 70-105 mg/dL Total Calcium 7.2 L 8.5-10.1 mg/dL Total Bilirubin 3.4 #H 0.2-1.0 mg/dL Aspartate Amino Transf (AST/SGOT) 5153 *H 10-37 U/L Alanine Aminotransferase (ALT/SGPT) 3490 *H 12-78 U/L Alkaline Phosphatase 242 H 50-136 U/L Total Protein 5.5 L 6.0-8.3 g/dL Albumin 2.4 L 3.5-5.0 g/dL Blood Gas Specimen Type Arterial Arterial Blood pH 7.502 H 7.350-7.450 Arterial Blood Partial Pressure CO2 28 L 35-48 mmHg Arterial Blood Partial Pressure O2 60.5 L 83.0-108.0 mmHg Arterial Blood HCO3 21.3 21.0-28.0 mmol/L Arterial Blood Oxygen Saturation 90.9 L 94.0-98.0 % Arterial Blood Base Excess -0.4 -2.0-3.0 mmol/L Hemoglobin (Blood Gas) 14.9 13.5-17.5 g/dL Sodium (Blood Gas) 140 136-145 MMOL/L Bedside Potassium (Blood Gas) 3.7 3.4-4.5 MMOL/L Bedside Chloride (Blood Gas) 99 98-107 MMOL/L Bedside Glucose (Blood Gas) 264 H 65-95 MG/DL Bedside Ionized Calcium (Blood Gas) 1.03 L 1.15-1.33 MMOL/L Bedside Lactic Acid (Blood Gas) 3.95 *H 0.36-0.75 MMOL/L Blood Gas Temperature 37.0 35.5-37.0 CELSIUS Blood Gas Respiration Rate 24.0 min. Blood Gas Vent Mode AC ROOM AIR FiO2 60.0 % Blood Gas Tidal Volume 480 ml Blood Gas PEEP 5 cm H2O Blood Gas Specimen Comment ZANDER MILLARD RN Lactic Acid Level 4.1 H 0.8-2.5 mmol/L Test 09/17/24 03:55 09/17/24 03:50 09/17/24 03:35 09/16/24 12:50 Range/Units White Blood Count 12.5 H 4.8-10.8 K/uL Red Blood Count 6.08 4.50-6.20 MIL/uL Hemoglobin 14.2 14.0-18.0 g/dL Hematocrit 47.2 42-54 % Mean Corpuscular Volume 77.6 L 79-99 fL Mean Corpuscular Hemoglobin 23.4 L 27.0-33.0 pg Mean Corpuscular Hemoglobin Concent 30.1 L 32.0-36.0 g/dL Red Cell Distribution Width 20.7 H 11.0-15.5 % Platelet Count 230 # 130-400 K/uL Mean Platelet Volume 9.6 7.5-10.5 fL Nucleated Red Blood Cells 2.1 H 0.0-0.19 % Prothrombin Time 21.6 H 9.6-11.6 SEC Prothromb Time International Ratio 2.07 H 0.85-1.15 Magnesium Level 1.70 L 1.80-2.40 mg/dL B-Type Natriuretic Peptide 1900 H 0-100 pg/mL Influenza Type A Antigen Negative For Type A NEGATIVE Influenza Type B Antigen Negative For Type B NEGATIVE SARS-CoV-2, RNA, NAAT NEGATIVE SARS CoV-2 NEGATIVE Procalcitonin 0.71 H 0.05-0.5 ng/mL Urine Random Urea Nitrogen 161 Not Estab. mg/dL Group A Streptococcus Rapid negative NEGATIVE Test 09/16/24 12:40 09/16/24 11:15 09/16/24 03:25 Range/Units Urine Color YELLOW YELLOW Urine Appearance HAZY CLEAR Urine pH 5.0 5.0-8.0 Urine Specific [place] 1.008 1.001-1.031 Urine Protein 30 H NEGATIVE mg/dL Urine Glucose (UA) NEGATIVE NEGATIVE mg/dL Urine Ketones NEGATIVE NEGATIVE mg/dL Urine Occult Blood MODERATE H NEGATIVE Urine Nitrate NEGATIVE NEGATIVE Urine Bilirubin NEGATIVE NEGATIVE mg/dL Urine Urobilinogen 0.2 0.2-1.0 mg/dL Urine Leukocyte Esterase 250 H NEGATIVE Nelson/uL Urine RBC 51-100 H 0-1 /HPF Urine WBC 11-25 H 0-1 /HPF Urine Amorphous Crystals (Auto) FEW None Seen /LPF Urine Bacteria FEW None Seen /HPF Urine Hyaline Casts 6-10 H 0-1 /LPF /LPF Urine Yeast RARE None Seen /HPF Urine Random Creatinine 19.98 L 30-135 mg/dL Urine Random Sodium 93 40-220 mmol/l Whole Blood Ketones Quantitative 1.0 H 0.0-0.6 mmol/L Immature Granulocyte % (Auto) 1.6 H 0-1 % Neutrophils (%) (Auto) 87.0 H 40.0-77.0 % Lymphocytes (%) (Auto) 6.0 L 21.0-51.0 % Monocytes (%) (Auto) 5.1 3.0-13.0 % Eosinophils (%) (Auto) 0.0 0.0-8.0 % Basophils (%) (Auto) 0.3 0.0-5.0 % Neutrophils # (Auto) 14.6 H 1.8-7.7 K/uL Lymphocytes # (Auto) 1.0 1.0-4.8 K/uL Monocytes # (Auto) 0.9 0.1-1.0 K/uL Eosinophils # (Auto) 0.00 0.00-0.70 K/uL Basophils # (Auto) 0.05 0.00-0.20 K/uL Absolute Immature Granulocyte (auto 0.27 0-1 K/uL ASSESSMENT: Acute hypoxic and hypercapnic respiratory failure requiring ventilatory support. Gram-positive bacteremia. Urinary tract infection. Sepsis. Atrial fibrillation, status post elective ablation. Elevated liver enzymes. Acute renal failure. Diabetes mellitus. COPD. PLAN: Continue Meropenem IV. We will follow up on the cultures. Continue critical care support. Continue ventilatory support. Continue vasopressor support. Continue monitoring glucose levels. Avoid nephrotoxic medications. We will monitor electrolytes. This case was reviewed and discussed with my supervising physician and the above assessment and plan was formulated and agreed upon. ATTESTATION BY PHYSICIAN I have seen and examined the patient. I reviewed the documentation, medical decision making, and treatment plan as noted by the mid-level provider above. I agree with the findings and plan of care. HARJIT FLORES MD, [facility] Sep 17, 2024 22:04
--- NOTE | 2024-09-17 22:36 | NUR ---
Spoke to Dr. Amezquita regarding patient being given the bolus of amiodarone as ordered by Dr. Tatum. Patient is still in afib/aflutter with a rate in the 120s. As per day shift nurse patient has an output of 7 liters of urine. Physician ordered a 250 ml bolus, a 2nd bolus of amiodarone, hold the diuretics, and an amiodarone drip per protocol. If amiodarone protocol is unsuccessful in controlling the rate give digoxin 0.25 mg iv push X 1 dose. Addendum: 09/17/24 at 2242 by LAZ IVORY RN RN BETHANIE drip was also ordered and levo to be titrated off.
[2024-09-17] MEDS ORDERED: AMIOdarone 900MG VIAL 360 MG in DEXTROSE 5%-WATER 200 ML IV PRN (23:00)
[2024-09-17] MEDS: 0.9% NACL 250ML 250 ML IV SCH (23:00)
[2024-09-17] MEDS: AMIOdarone 900MG VIAL 150 MG in DEXTROSE 5%-WATER 100 ML IV PRN (23:32)
[2024-09-17] MEDS: phenylEPHRINE HCL 100 MG in 0.9% NACL 250ML 240 ML IV PRN (23:34)
[2024-09-18] VITALS (64 sets, daily range): BP systolic 0–146; BP diastolic 0–92; PULSE 0–134; RESP 0–22; TEMP 98.5–101.7; O2SAT 96–100
--- NOTE | 2024-09-18 00:40 | NUR ---
Spoke to Edwar from [facility] regarding patients blood sugar 352. Provider informed patient is on high sliding scale received 20 units of regular insulin, on 15 units of Lantus. Provider ordered a continuation of protocol and monitoring.
--- NOTE | 2024-09-18 00:53 | NUR ---
Called and spoke to [facility] regarding patient. Provider was informed patient has a fever of 101.7 in the presence of shock liver. Provider will look over chart. Provider ordered chest xray, UA, and blood culture.
--- NOTE | 2024-09-18 01:34 | NUR ---
Edwar Winston at the bedside. As per provider no antipyretics due to patients shock liver. Placing ice packs and fan on patient. Patient is uncovered.
[2024-09-18] MEDS: acetaMINOPHEN 325 MG/10.15ML UDCUP NG STA (03:36)
[2024-09-18 03:39] LABS: BASOPHILS # (AUTO) 0.03 K/uL (0.00-0.20); BASOPHILS % (AUTO) 0.2 % (0.0-5.0); HEMATOCRIT 45.8 % (42-54); IMMATURE GRANULOCYTE ABSOLUTE 0.15 K/uL (0-1); LYMPHOCYTES # (AUTO) 1.3 K/uL (1.0-4.8); LYMPHOCYTES % (AUTO) 8.8 % (21.0-51.0); MEAN CORPUSCULAR HGB CONC 29.9 g/dL (32.0-36.0); MONOCYTES # (AUTO) 0.9 K/uL (0.1-1.0); MONOCYTES % (AUTO) 6.1 % (3.0-13.0); NEUTROPHILS # (AUTO) 12.7 K/uL (1.8-7.7); NEUTROPHILS % (AUTO) 83.9 % (40.0-77.0); NUCLEATED RED BLOOD CELLS 0.3 % (0.0-0.19); PLATELET COUNT (AUTO) 133 K/uL (130-400); RED BLOOD CELL COUNT(AUTO) 5.95 MIL/uL (4.50-6.20); RED CELL DISTRIBUTION WIDTH 20.6 % (11.0-15.5); WHITE BLOOD COUNT (AUTO) 15.1 K/uL (4.8-10.8)
[2024-09-18 03:55] LABS: ALBUMIN 2.3 g/dL (3.5-5.0); BILIRUBIN,TOTAL 3.1 mg/dL (0.2-1.0); CREATININE 1.8 mg/dL (0.5-1.3); MAGNESIUM 1.9 mg/dL (1.80-2.40); TOTAL PROTEIN, SERUM 5.5 g/dL (6.0-8.3)
[2024-09-18 04:29] LABS: ABG BASE EXCESS 1.5 mmol/L (-2.0-3.0); ABG HCO3 23.1 mmol/L (21.0-28.0); ABG OXYGEN SATURATION 98.5 % (94.0-98.0); ABG PCO2 28 mmHg (35-48); ABG PH 7.528 (7.350-7.450); CARBON MONOXIDE 0.9 % (0.5-1.5); HHb 1.5; PO2, ARTERIAL BG 129.5 mmHg (83.0-108.0); VENT MODE, BG AC (ROOM AIR)
[2024-09-18 04:48] LABS: POTASSIUM 2.9 mmol/L (3.5-5.1)
[2024-09-18] MEDS: PoTASSium chloRIDE 20MEQ/100ML 100 ML IV PRN (05:55)
[2024-09-18] MEDS: AMIOdarone 900MG VIAL 540 MG in DEXTROSE 5%-WATER 300 ML IV PRN (06:49)
--- NOTE | 2024-09-18 08:20 | PN ---
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 scott and vasopressin @ 0.04. Febrile, now in afib LFTs downtrending K 2.9 Physical Examination: GENERAL: [sedated, intubated] HEAD: [Normal with no signs of head trauma.] LUNGS: [vent sounds] HEART: [Normal rate and rhythm..] VASC: [Peripheral pulses +2 bilaterally.] ABD: [soft, nontender, no masses.] EXT: [cool extremities.] SKIN: [No rashes or lesions noted.] NEURO: [sedated intubated.] Laboratory: [ ] Hematology Labs: Test 09/18/24 03:10 Range/Units White Blood Count 15.1 H 4.8-10.8 K/uL Red Blood Count 5.95 4.50-6.20 MIL/uL Hemoglobin 13.7 L 14.0-18.0 g/dL Hematocrit 45.8 42-54 % Mean Corpuscular Volume 77.0 L 79-99 fL Mean Corpuscular Hemoglobin 23.0 L 27.0-33.0 pg Mean Corpuscular Hemoglobin Concent 29.9 L 32.0-36.0 g/dL Red Cell Distribution Width 20.6 H 11.0-15.5 % Platelet Count 133 # 130-400 K/uL Mean Platelet Volume 10.2 7.5-10.5 fL Immature Granulocyte % (Auto) 1.0 0-1 % Neutrophils (%) (Auto) 83.9 H 40.0-77.0 % Lymphocytes (%) (Auto) 8.8 L 21.0-51.0 % Monocytes (%) (Auto) 6.1 3.0-13.0 % Eosinophils (%) (Auto) 0.0 0.0-8.0 % Basophils (%) (Auto) 0.2 0.0-5.0 % Neutrophils # (Auto) 12.7 H 1.8-7.7 K/uL Lymphocytes # (Auto) 1.3 1.0-4.8 K/uL Monocytes # (Auto) 0.9 0.1-1.0 K/uL Eosinophils # (Auto) 0.00 0.00-0.70 K/uL Basophils # (Auto) 0.03 0.00-0.20 K/uL Absolute Immature Granulocyte (auto 0.15 0-1 K/uL Nucleated Red Blood Cells 0.3 H 0.0-0.19 % Chemistry Labs: Test 09/18/24 06:39 09/18/24 03:10 09/17/24 08:35 09/17/24 03:55 Range/Units Whole Blood Glucose 272 H 70-110 MG/DL Sodium Level 141 136-145 mmol/L Potassium Level 2.9 *L 3.5-5.1 mmol/L Chloride Level 102 101-111 mmol/L Carbon Dioxide Level 28 21-32 mmol/L Blood Urea Nitrogen 64 H 7-18 mg/dL Creatinine 1.8 H 0.5-1.3 mg/dL Glomerular Filtration Rate Calc 37 >90 mL/min Random Glucose 309 H 70-105 mg/dL Total Calcium 6.9 L 8.5-10.1 mg/dL Magnesium Level 1.90 1.80-2.40 mg/dL Total Bilirubin 3.1 H 0.2-1.0 mg/dL Aspartate Amino Transf (AST/SGOT) 3573 *H 10-37 U/L Alanine Aminotransferase (ALT/SGPT) 3941 *H 12-78 U/L Alkaline Phosphatase 214 H 50-136 U/L Total Protein 5.5 L 6.0-8.3 g/dL Albumin 2.3 L 3.5-5.0 g/dL Lactic Acid Level 4.1 H 0.8-2.5 mmol/L B-Type Natriuretic Peptide 1900 H 0-100 pg/mL Test 09/17/24 03:35 09/16/24 11:15 Range/Units Procalcitonin 0.71 H 0.05-0.5 ng/mL Whole Blood Ketones Quantitative 1.0 H 0.0-0.6 mmol/L Coagulation Labs: Test 09/17/24 21:20 09/17/24 03:55 Range/Units Activated Partial Thromboplast Time 55.0 H 26.3-35.5 SEC Prothrombin Time 21.6 H 9.6-11.6 SEC Prothromb Time International Ratio 2.07 H 0.85-1.15 Diagnostics / Radiology: [Copy/Paste Echos/Imaging Report here] Impression and Plan: 1. 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 Typical atrial flutter with RVR s/p CTI flutter line 08/16/24 3. Acute respiratory failure 4. JR 5. Elevated LFTs 2/2 #1- improving 6. Sepsis 7. AFib Keep amiodarone gtt. digoxin after potassium repleted. Could cardiovert once afebrile (he's been on AC but would likely go back into it for now. finish amiodarone protocol continue supportive care. allow RV to recover, keep dobutamine gtt (should be the last thing we wean). minimize positive pressure. hold diuretics for now. wean vasopressors as able AC guided by PTT. VALENTIN CAREY MD Sep 18, 2024 08:20
[2024-09-18] MEDS: polyETHYLene GLYCol 3350 17 GM POWD.PACK PO SCH (08:25)
--- NOTE | 2024-09-18 08:45 | HMCIMG ---
CHEST 1VW REASON: FEVER COMPARISON: 09/17/2024 FINDINGS: Heart size is normal. There are no vascular congestion. There is a small right pleural effusion with some basilar atelectasis, there may be a minimal left ET and NG and PICC line remain in good position. IMPRESSION: 1. Small right pleural effusion, although this does appear somewhat increased in size, there may be a minimal left effusion. 2. Tubes and lines remain in good position.
[2024-09-18] MEDS ORDERED: PoTASSium chl 10% ELIXIR 20MEQ 20 MEQ/15 ML UDCUP PO PRN (09:30)
[2024-09-18] MEDS ORDERED: PoTASSium chloRIDE 20MEQ/100ML 100 ML IV PRN (09:30)
[2024-09-18] MEDS ORDERED: PoTASSium chloRIDE 20MEQ ER 20 MEQ ERTAB PO PRN (09:30)
--- NOTE | 2024-09-18 10:10 | PN ---
[facility] PROGRESS NOTE Date of Service: Sep 18, 2024 Time of Service: 10:10 SUBJECTIVE: 09/16 The patient has been seen and examined today during rounding, he remains admitted to the intensive care unit, remains intubated, mechanical ventilation. The patient is on fentanyl as well as Precedex. The patient also on Levophed, vasopressin drips. Patient on dobutamine, heparin drip and Bumex drip. BP 127/76, heart rate of 85, O2 saturation of 94-95%. CBC showing a WBC of 16.8. CMP with sodium 142, potassium 5.2, BUN 33, creatinine 1.6. AST of 4055, ALT 2595. ABG shows a pH of 7.33, pCO2 39, PO2 63.2, bicarbonate of 20. 09/17 the patient has been seen and examined today during my rounding, remains admitted to the intensive care unit, remains intubated, mechanical ventilation, on vasopressors with vasopressin, remains on dobutamine drip. sedated with Precedex and fentanyl, the patient remains on heparin drip. Blood pressure 110/59, heart rate of 85, saturating 98% on mechanical ventilation, FiO2 80%. Laboratory data with a white blood cell count trending down at 12.5, hemoglobin 14.2, hematocrit 47.2, sodium 138, potassium 3.7, BUN of 54, creatinine 1.9, liver enzymes with the AST 5525, ALT 4267. ABG showing a pH of 7.33, pCO2 39, PO2 63.2. Chest x-ray showing mild bilateral pulmonary infiltrates maybe related to mild pulmonary vascular congestion with a possible superimposed pneumonitis. 09/18 the patient has been seen and examined today during my rounding, remains admitted to the intensive care unit, remains intubated, mechanical ventilation, on amiodarone drip, on phenylephrine and levophed for blood pressure support, remains on fentanyl, getting IV antibiotics during my visit, continue on precedex. On heparin drip. Blood pressure of 109/72, HR 118, oxygen saturation 99%. CBC with hemoglobin 13.7, hematocrit 45.8, WBC 15.1. ABG pH 7.5, PCO2 28, O2 129.5. Chest x-ray showing mild bilateral pulmonary infiltrates maybe related to mild pulmonary vascular congestion with a possible superimposed pneumonitis. Per my discussion with the nurse that is taking care of the patient, family has decided to withdraw care. REVIEW OF SYSTEMS Unable to obtain since patient is intubated and sedated PHYSICAL EXAM GENERAL APPEARANCE: Patient is currently intubated and sedated NEUROLOGICAL: Unable to perform accurate neurological exam HEENT: Face is symmetric. Pupils are equal and reactive. Extraocular movements are intact. NECK: Supple. No JVD. No thyromegaly. No submental, submandibular, pre-/postauricular, occipital or supraclavicular lymphadenopathy. CHEST: Normal chest expansion. No Telemetry. LUNGS: Minimal bilateral rhonchi. CARDIOVASCULAR: Regular. S1 and S2 normal. No appreciable rubs, murmurs or gallops. ABDOMEN: Soft, nontender, and nondistended. There is no rebound, voluntary guarding, or rigidity. : Deferred. No [place]. EXTREMITIES: History of right above-knee amputation. SKIN: No skin breakdown. Vital Signs (last 8hr) Date Time Temp Pulse Resp B/P (MAP) Pulse Ox O2 Delivery O2 Flow Rate FiO2 09/18/24 09:17 108 14 118/71 (87) 99 103/60 (74) 09/18/24 09:13 50 09/18/24 09:06 125 60 09/18/24 09:02 111 10 107/72 (84) 99 93/57 (69) 09/18/24 08:47 124 13 106/73 (84) 99 107/73 (84) 09/18/24 08:32 107 15 120/74 (89) 100 108/79 (89) 09/18/24 08:17 122 12 118/72 (87) 100 99/69 (79) 09/18/24 08:02 115 11 114/76 (89) 100 105/66 (79) 09/18/24 07:47 119 12 125/80 (95) 100 125/65 (85) 09/18/24 07:32 118 16 125/80 (95) 100 123/75 (91) 09/18/24 07:17 123 14 122/79 (93) 100 121/74 (90) 09/18/24 07:02 98.8 121 14 118/78 (91) 100 118/63 (81) 09/18/24 06:42 116 15 09/18/24 06:40 116 60 09/18/24 05:36 60 09/18/24 05:02 115 20 120/74 (89) 99 109/74 (86) 09/18/24 04:47 116 20 129/79 (96) 100 116/71 (86) 09/18/24 04:32 130 20 125/80 (95) 100 122/71 (88) 09/18/24 04:17 123 20 131/80 (97) 100 120/81 (94) 09/18/24 04:02 117 20 128/80 (96) 100 125/72 (89) 09/18/24 03:47 115 21 126/77 (93) 100 114/69 (84) 09/18/24 03:36 101.1 09/18/24 03:32 118 20 121/75 (90) 100 122/65 (84) 09/18/24 03:19 121 70 09/18/24 03:17 115 20 117/71 (86) 100 105/68 (80) 09/18/24 03:02 110 19 122/72 (89) 100 106/70 (82) 09/18/24 02:56 99 Ventilator+ 70 09/18/24 02:47 101.1 117 21 116/74 (88) 100 111/64 (80) 09/18/24 02:32 118 21 119/74 (89) 99 101/62 (75) 09/18/24 02:17 114 21 122/73 (89) 99 103/69 (80) LABS: Laboratory: Test 09/18/24 06:39 09/18/24 04:24 09/18/24 03:10 09/17/24 21:20 Range/Units Whole Blood Glucose 272 H 70-110 MG/DL Blood Gas Specimen Type Arterial Arterial Blood pH 7.528 H 7.350-7.450 Arterial Blood Partial Pressure CO2 28 L 35-48 mmHg Arterial Blood Partial Pressure O2 129.5 H 83.0-108.0 mmHg Arterial Blood HCO3 23.1 21.0-28.0 mmol/L Arterial Blood Oxygen Saturation 98.5 H 94.0-98.0 % Arterial Blood Base Excess 1.5 -2.0-3.0 mmol/L Hemoglobin (Blood Gas) 14.5 13.5-17.5 g/dL Sodium (Blood Gas) 139 136-145 MMOL/L Bedside Potassium (Blood Gas) 2.8 *L 3.4-4.5 MMOL/L Bedside Chloride (Blood Gas) 100 98-107 MMOL/L Bedside Glucose (Blood Gas) 311 H 65-95 MG/DL Bedside Ionized Calcium (Blood Gas) 0.95 L 1.15-1.33 MMOL/L Bedside Lactic Acid (Blood Gas) 4.36 *H 0.36-0.75 MMOL/L Blood Gas Temperature 37.0 35.5-37.0 CELSIUS Blood Gas Respiration Rate 20.0 min. Blood Gas Vent Mode AC ROOM AIR FiO2 70.0 % Blood Gas Tidal Volume 480 ml Blood Gas PEEP 5 cm H2O Blood Gas Specimen Comment VERA FERMIN White Blood Count 15.1 H 4.8-10.8 K/uL Red Blood Count 5.95 4.50-6.20 MIL/uL Hemoglobin 13.7 L 14.0-18.0 g/dL Hematocrit 45.8 42-54 % Mean Corpuscular Volume 77.0 L 79-99 fL Mean Corpuscular Hemoglobin 23.0 L 27.0-33.0 pg Mean Corpuscular Hemoglobin Concent 29.9 L 32.0-36.0 g/dL Red Cell Distribution Width 20.6 H 11.0-15.5 % Platelet Count 133 # 130-400 K/uL Mean Platelet Volume 10.2 7.5-10.5 fL Immature Granulocyte % (Auto) 1.0 0-1 % Neutrophils (%) (Auto) 83.9 H 40.0-77.0 % Lymphocytes (%) (Auto) 8.8 L 21.0-51.0 % Monocytes (%) (Auto) 6.1 3.0-13.0 % Eosinophils (%) (Auto) 0.0 0.0-8.0 % Basophils (%) (Auto) 0.2 0.0-5.0 % Neutrophils # (Auto) 12.7 H 1.8-7.7 K/uL Lymphocytes # (Auto) 1.3 1.0-4.8 K/uL Monocytes # (Auto) 0.9 0.1-1.0 K/uL Eosinophils # (Auto) 0.00 0.00-0.70 K/uL Basophils # (Auto) 0.03 0.00-0.20 K/uL Absolute Immature Granulocyte (auto 0.15 0-1 K/uL Nucleated Red Blood Cells 0.3 H 0.0-0.19 % Sodium Level 141 136-145 mmol/L Potassium Level 2.9 *L 3.5-5.1 mmol/L Chloride Level 102 101-111 mmol/L Carbon Dioxide Level 28 21-32 mmol/L Blood Urea Nitrogen 64 H 7-18 mg/dL Creatinine 1.8 H 0.5-1.3 mg/dL Glomerular Filtration Rate Calc 37 >90 mL/min Random Glucose 309 H 70-105 mg/dL Total Calcium 6.9 L 8.5-10.1 mg/dL Magnesium Level 1.90 1.80-2.40 mg/dL Total Bilirubin 3.1 H 0.2-1.0 mg/dL Aspartate Amino Transf (AST/SGOT) 3573 *H 10-37 U/L Alanine Aminotransferase (ALT/SGPT) 3941 *H 12-78 U/L Alkaline Phosphatase 214 H 50-136 U/L Total Protein 5.5 L 6.0-8.3 g/dL Albumin 2.3 L 3.5-5.0 g/dL Activated Partial Thromboplast Time 55.0 H 26.3-35.5 SEC Test 09/17/24 08:35 09/17/24 03:55 09/17/24 03:50 09/17/24 03:35 Range/Units Lactic Acid Level 4.1 H 0.8-2.5 mmol/L Prothrombin Time 21.6 H 9.6-11.6 SEC Prothromb Time International Ratio 2.07 H 0.85-1.15 B-Type Natriuretic Peptide 1900 H 0-100 pg/mL Influenza Type A Antigen Negative For Type A NEGATIVE Influenza Type B Antigen Negative For Type B NEGATIVE SARS-CoV-2, RNA, NAAT NEGATIVE SARS CoV-2 NEGATIVE Procalcitonin 0.71 H 0.05-0.5 ng/mL Test 09/16/24 12:50 09/16/24 12:40 09/16/24 11:15 Range/Units Urine Random Urea Nitrogen 161 Not Estab. mg/dL Group A Streptococcus Rapid negative NEGATIVE Urine Color YELLOW YELLOW Urine Appearance HAZY CLEAR Urine pH 5.0 5.0-8.0 Urine Specific [place] 1.008 1.001-1.031 Urine Protein 30 H NEGATIVE mg/dL Urine Glucose (UA) NEGATIVE NEGATIVE mg/dL Urine Ketones NEGATIVE NEGATIVE mg/dL Urine Occult Blood MODERATE H NEGATIVE Urine Nitrate NEGATIVE NEGATIVE Urine Bilirubin NEGATIVE NEGATIVE mg/dL Urine Urobilinogen 0.2 0.2-1.0 mg/dL Urine Leukocyte Esterase 250 H NEGATIVE Nelson/uL Urine RBC 51-100 H 0-1 /HPF Urine WBC 11-25 H 0-1 /HPF Urine Amorphous Crystals (Auto) FEW None Seen /LPF Urine Bacteria FEW None Seen /HPF Urine Hyaline Casts 6-10 H 0-1 /LPF /LPF Urine Yeast RARE None Seen /HPF Urine Random Creatinine 19.98 L 30-135 mg/dL Urine Random Sodium 93 40-220 mmol/l Whole Blood Ketones Quantitative 1.0 H 0.0-0.6 mmol/L Current Medications Medications (Trade) Dose Ordered Sig/[place] Route PRN Reason Start Time Stop Time Status Last Admin Dose Admin Acetaminophen (TYLenol 325MG ELIXIR) 325 mg ONCE STAT NG 09/18/24 03:16 09/18/24 03:24 DC 09/18/24 03:36 325 MG Albuterol (DUOneb) 1 UDVIAL Q6H PRN IH SHORTNESS OF BREATH 09/15/24 18:00 09/16/24 09:45 DC Amiodarone HCl 150 mg/Dextrose 100 ml @ 0 mls/hr PROTOCOL IV 09/17/24 18:30 10/17/24 18:29 09/17/24 19:20 0 MLS/HR Amiodarone HCl 150 mg/Dextrose 103 ml @ 0 mls/hr AD PRN IV Bolus dose 09/17/24 23:00 10/17/24 22:59 09/17/24 23:32 0 MLS/HR Amiodarone HCl 360 mg/Dextrose 218 ml @ 0 mls/hr AD PRN IV As Directed 09/17/24 23:00 10/17/24 22:59 Amiodarone HCl 540 mg/Dextrose 259 ml @ 14.389 mls/ hr AD PRN IV As directed 09/17/24 05:00 09/17/24 23:00 DC Amiodarone HCl 540 mg/Dextrose 310 ml @ 17.222 mls/ hr AD PRN IV As directed 09/17/24 23:30 10/17/24 04:59 09/18/24 06:49 17.222 MLS/HR Budesonide (Pulmicort 0.25mg/2ml) 0.25 mg BIDRESP IH 09/15/24 18:00 10/15/24 17:59 09/18/24 06:40 0.25 MG Bumetanide 80 ml @ 2 mls/hr AD IV 09/16/24 10:30 10/16/24 10:29 Hold Bumetanide (Bumex 1mg Vial) 0.5 mg Q8H IVP 09/17/24 14:30 10/17/24 14:29 Cefepime HCl (MAXipime 1 GM vial) 1 gm Q12H IVPB 09/16/24 14:00 09/16/24 11:26 DC Cefepime HCl (MAXipime 1 GM vial) 1 gm Q8H IVPB 09/15/24 18:00 09/16/24 09:15 DC 09/16/24 01:24 1 GM Dexmedetomidine/ Sodium Chloride (PRECEdex 400MCG/ 100ML-NS) 400 mcg PROTOCOL IV 09/16/24 10:00 10/16/24 09:59 09/18/24 08:23 400 MCG Dextrose (D50w) 50 ml AD PRN IV HYPOGLYCEMIA PROTOCOL 09/15/24 19:00 10/15/24 18:59 Dextrose/Sodium Chloride 1,000 ml @ 0 mls/hr AD IV 09/16/24 16:30 09/17/24 12:30 DC Dobutamine HCl/ Dextrose 250 ml @ 0 mls/hr PROTOCOL IV 09/16/24 11:30 10/16/24 11:29 09/17/24 21:30 14.4 MLS/HR Doxycycline Hyclate 250 ml @ 125 mls/hr Q12H IV 09/16/24 16:30 09/26/24 16:29 09/18/24 03:29 125 MLS/HR Famotidine (Pepcid 20mg Vial) 20 mg BID IV 09/15/24 21:00 10/15/24 20:59 09/18/24 08:25 20 MG Fentanyl Citrate 100 ml @ 2.5 mls/hr PROTOCOL IV 09/15/24 22:30 09/16/24 21:37 DC Fentanyl/Sodium Chloride 250 ml @ 2.5 mls/hr PROTOCOL IV 09/16/24 22:00 09/21/24 21:59 09/18/24 08:24 2.5 MLS/HR Furosemide (LASix 40MG VIAL) 20 mg BID IV 09/16/24 21:00 09/16/24 10:18 DC Furosemide (LASix 40MG VIAL) 40 mg BID IV 09/16/24 07:30 09/16/24 10:07 DC 09/16/24 09:33 40 MG Furosemide (LASix 40MG VIAL) 80 mg Q8H IV 09/15/24 17:30 09/16/24 07:18 DC 09/16/24 01:45 80 MG Glucagon (Glucagon 1mg Kit) 1 mg AD PRN IM HYPOGLYCEMIA PROTOCOL 09/15/24 19:00 10/15/24 18:59 Heparin Sodium (Porcine) (HEParin 5,000 UNIT VIAL) DOSE PER WEIGHT BA... PROTOCOL PRN IV WT-BASED HEPARIN PROTOCOL 09/15/24 19:30 10/15/24 19:29 Heparin Sodium/ Dextrose 250 ml @ 0 mls/hr PROTOCOL IV 09/15/24 19:30 10/15/24 19:29 09/16/24 20:53 8.8 MLS/HR Hydrocortisone Sodium Succinate (Solu-corTEF 100MG) 50 mg Q6H IV 09/16/24 10:00 10/16/24 09:59 09/18/24 04:30 50 MG Insulin Glargine (LANtus 100 UNITS/ML 10 ML VIAL) 15 units BID@0730,2100 SQ 09/16/24 11:00 10/16/24 10:59 09/18/24 06:47 15 UNITS Insulin Glargine (LANtus 100 UNITS/ML 10 ML VIAL) 15 units BID@0730,2100 SQ 09/16/24 21:00 09/16/24 10:38 DC Insulin Human Regular (humuLIN R 100 UNIT/ML 3ML) INSULIN SLIDING SCAL... Q6H6 SQ 09/16/24 00:00 09/17/24 12:31 DC 09/17/24 12:01 2 UNIT Insulin Human Regular (humuLIN R 100 UNIT/ML 3ML) INSULIN SLIDING SCAL... Q6H6 SQ 09/17/24 18:00 10/17/24 17:59 09/18/24 06:45 12 UNIT Insulin Human Regular 100 unit/ Sodium Chloride 101 ml @ 0 mls/hr PROTOCOL IV 09/16/24 16:30 09/17/24 12:30 DC 09/16/24 18:59 8 MLS/HR Ipratropium [place] (AtrovENT UD) 0.5 MG R0LOHEB IH 09/16/24 10:00 10/16/24 09:59 09/18/24 06:40 0.5 MG Lactulose (Constulose 20gm/ 30ml Udcup) 20 gm BID PO 09/17/24 21:00 10/17/24 20:59 09/18/24 08:25 20 GM Magnesium Sulfate 50 ml @ 0 mls/hr PROTOCOL IV 09/16/24 16:30 09/17/24 12:30 DC 09/17/24 09:05 50 MLS/HR Magnesium Sulfate 50 ml @ 0 mls/hr PROTOCOL PRN IV hypomagnesium 09/16/24 05:30 09/16/24 16:34 DC 09/16/24 06:24 25 MLS/HR Meropenem (Merrem) 1 gm Q12H IVPB 09/16/24 12:00 09/26/24 11:59 09/17/24 23:30 1 GM Meropenem 1 gm/ Sodium Chloride 100 ml @ 33.333 mls/ hr Q12H IV 09/16/24 12:00 09/16/24 11:41 DC Methylprednisolone Sodium Succinate (Solu-medROL 40MG) 40 mg Q12H IVP 09/15/24 19:00 09/16/24 09:45 DC 09/16/24 06:00 40 MG Midazolam HCl (Midazolam 100mg-0.9% NS 100ml) 100 ml PROTOCOL IV 09/15/24 22:30 09/16/24 10:09 DC 09/16/24 04:58 100 ML Montelukast Sodium (SinguLAIR) 10 mg DAILY PO 09/17/24 09:00 10/17/24 08:59 09/18/24 08:25 10 MG Norepinephrine Bitartrate (Norepineph 16 Mg/250ml NS Premix) as per protocol PROTOCOL IV 09/15/24 22:30 10/15/24 22:29 09/16/24 18:58 0.1 MG Phenylephrine HCl 100 mg/Sodium Chloride 250 ml @ 0 mls/hr AD PRN IV TITRATE 09/17/24 23:00 10/17/24 22:59 09/17/24 23:34 0 MLS/HR Polyethylene Glycol (MIRalax 3350 17 GM POWD.PACK) 17 gm DAILY PO 09/18/24 09:00 10/18/24 08:59 09/18/24 08:25 17 GM Potassium Chloride/Dextrose/ Sod Cl 1,000 ml @ 0 mls/hr AD IV 09/16/24 16:30 09/17/24 12:30 DC Potassium Chloride 100 ml @ 50 mls/hr AD PRN IV POTASSIUM PROTOCOL 09/16/24 05:30 09/18/24 09:13 DC 09/18/24 08:27 50 MLS/HR Potassium Chloride 100 ml @ 100 mls/hr AD PRN IV POTASSIUM PROTOCOL 09/18/24 09:30 10/18/24 09:29 Potassium Chloride (K-Dur/Klor-Con 20meq) 20 meq AD PRN PO POTASSIUM PROTOCOL 09/18/24 09:30 10/18/24 09:29 Potassium Chloride (KCl 10% Elixir 20meq/15ml) 20 meq AD PRN PO POTASSIUM PROTOCOL 09/18/24 09:30 10/18/24 09:29 Sodium Chloride 250 ml @ 0 mls/hr Q0M IV 09/15/24 22:30 09/16/24 16:36 DC Sodium Chloride 250 ml @ 0 mls/hr Q0M IV 09/17/24 23:00 10/17/24 22:59 09/17/24 23:00 1,200 MLS/HR Sodium Chloride 500 ml @ 0 mls/hr Q0M IV 09/16/24 10:00 10/16/24 09:59 Sodium Chloride 1,000 ml @ 0 mls/hr Q0M IV 09/15/24 11:30 10/15/24 11:29 Vasopressin 40 units/Sodium Chloride 40 ml @ 0 mls/hr PROTOCOL IV 09/15/24 18:00 10/15/24 17:59 09/17/24 23:32 2.4 MLS/HR DIAGNOSTICS / RADIOLOGY: [ ] ASSESSMENT: Acute hypoxic and hypercapnic respiratory failure POA Mixed respiratory and metabolic acidosis POA Acute on chronic COPD exacerbation POA Acute on chronic heart failure with systolic dysfunction with EF of 45-50% Community-acquired pneumonia rule out Hypotension differential cardiogenic versus sepsis Sepsis rule out Lactic acidosis Atrial fibrillation status post ablation on 09/15/2024 History of chronic anticoagulation with Eliquis Hypertension Hyperlipidemia Debility History of right AKA PLAN: - patient remains admitted to the ICU -continue intubation and mechanical ventilation -continue telemetry monitoring -continue the patient on dobutamine -continue the patient on vasopressin -continue the patient Precedex -continue heparin drip -follow critical care input and recommendation as well as Cardiology and electrophysiology recommendation -replace electrolytes IV per protocol -a.m. labs -GI and DVT prophylaxis -further orders per hospitalization course. Prognosis of this patient remains guarded. No family members at bedside to discuss goals of care. Total ICU time spent greater than 30 minutes. ARELIS PEREZ MD Sep 18, 2024 10:10
[2024-09-18 11:52] LABS: BILIRUBIN,URINE NEGATIVE (NEGATIVE); COLOR,URINE YELLOW (YELLOW); GLUCOSE, URINE (UA) NEGATIVE (NEGATIVE); KETONES,URINE NEGATIVE (NEGATIVE); LEUKOCYTE ESTERASE ,URINE 250 Leu/uL (NEGATIVE); NITRATE,URINE NEGATIVE (NEGATIVE); OCCULT BLOOD,URINE SMALL (NEGATIVE); PH,URINE 5.5 (5.0-8.0); PROTEIN,URINE 100 mg/dL (NEGATIVE); UROBILINOGEN,URINE 0.2 mg/dL (0.2-1.0)
[2024-09-18 11:54] LABS: ADD UA MICROSCOPIC YES; APPEARANCE,URINE CLOUDY (CLEAR)
[2024-09-18 12:27] LABS: MAGNESIUM 1.8 mg/dL (1.80-2.40); POTASSIUM 3.3 mmol/L (3.5-5.1)
[2024-09-18] MEDS ORDERED: MIDAZOLAM 100MG-0.9% NS 100ML 100ML BAG IV ONE (12:30)
[2024-09-18] MEDS: PoTASSium chloRIDE 20MEQ/100ML 100 ML IV ONE (12:36)
[2024-09-18] MEDS: LACTATED RINGERS 1000ML IV ONE (12:41)
[2024-09-18 12:42] LABS: BACTERIA,URINE FEW /HPF (None Seen); MUCUS,URINE RARE LPF (None Seen); RBC,URINE 26-50 /HPF (0-1); YEAST,URINE BUDDING MANY /HPF (None Seen); YEAST,URINE HYPHAE FEW /HPF (None Seen)
[2024-09-18] MEDS ORDERED: PHARMACY COMMUNICATION MISC SCH (13:00)
[2024-09-18] MEDS ORDERED: VANCOMYCIN 1.5 GM/250 ML BAG 250 ML IV ONE (13:30)
--- NOTE | 2024-09-18 14:01 | NUR ---
FAMILY WANT TO WITHDRAW, FRANCIS CALLED. REFERRAL NUMBER IS [id number] REP: JULIO TRUJILLO
--- NOTE | 2024-09-18 14:02 | NUR ---
SIGNED DNR AND WITHDRAWAL FORMS. ALEXIS AGUILAR MADE AWARE AND WILL RELAY TO DR LONG.
--- NOTE | 2024-09-18 14:29 | CONS ---
NEPHROLOGY CONSULTATION NOTE Date/Time Patient Seen: Sep 18, 2024 1320 Reason for Consultation: Renal failure HISTORY OF PRESENT ILLNESS: This is an 83-year-old male with past medical history of COPD, CHF, hypertension, DM two, PVD status post right AKA, history of atrial fibrillation on anticoagulation He presented to the hospital secondary to atrial fibrillation. History is obtained from chart review, patient's had provider. Patient was scheduled for elective AFib ablation by Cardiology. Postprocedure the patient was noted to have respiratory acidosis and was unable to be liberated from the ventilator. Additionally patient was also found to be hypotensive and needed to be started on Levophed and dobutamine. Patient was thereafter admitted in the ICU. He was noted to have elevated BUN/creatinine. We have been consulted for renal failure Family wishes to proceed with comfort measures. He was seen in the ICU, family at the bedside. REVIEW OF SYSTEMS: Difficult to obtain given status of the patient who remains intubated mechanically ventilated PAST MEDICAL HISTORY: COPD, CHF, hypertension, diabetes mellitus type 2, PVD, history of atrial fibrillation PAST SURGICAL HISTORY: Atrial fibrillation ablation Right above-knee amputation PAST SOCIAL HISTORY: Unable to obtain FAMILY HISTORY: Noncontributory PHYSICAL EXAM: General: acutely ill, sedated, intubated, and mechanically ventilated HEENT: head is atraumatic, pupils equal and reactive, ET tube in place Neck: supple, no masses, no lymphadenopathy, no thyromegaly, no JVD Lungs: decreased breath sounds bilaterally, symmetrical chest movement Cardio: regular rate, S1 and S2 normal, no rub or gallop Abdomen: soft, non tender, no distension, no organomegaly Extremities: trace edema bilateral lower extremities, no cyanosis or clubbing Skin: no rashes or suspicious lesions Neuro: sedated MEDICATIONS: [ ] Current Medications Medications (Trade) Dose Ordered Sig/[place] Route PRN Reason Start Time Stop Time Status Last Admin Dose Admin Acetaminophen (TYLenol 325MG ELIXIR) 325 mg ONCE STAT NG 09/18/24 03:16 09/18/24 03:24 DC 09/18/24 03:36 325 MG Albuterol (DUOneb) 1 UDVIAL Q6H PRN IH SHORTNESS OF BREATH 09/15/24 18:00 09/16/24 09:45 DC Amiodarone HCl 150 mg/Dextrose 100 ml @ 0 mls/hr PROTOCOL IV 09/17/24 18:30 10/17/24 18:29 09/17/24 19:20 0 MLS/HR Amiodarone HCl 150 mg/Dextrose 103 ml @ 0 mls/hr AD PRN IV Bolus dose 09/17/24 23:00 10/17/24 22:59 09/17/24 23:32 0 MLS/HR Amiodarone HCl 360 mg/Dextrose 218 ml @ 0 mls/hr AD PRN IV As Directed 09/17/24 23:00 10/17/24 22:59 Amiodarone HCl 540 mg/Dextrose 259 ml @ 14.389 mls/ hr AD PRN IV As directed 09/17/24 05:00 09/17/24 23:00 DC Amiodarone HCl 540 mg/Dextrose 310 ml @ 17.222 mls/ hr AD PRN IV As directed 09/17/24 23:30 10/17/24 04:59 09/18/24 06:49 17.222 MLS/HR Budesonide (Pulmicort 0.25mg/2ml) 0.25 mg BIDRESP IH 09/15/24 18:00 10/15/24 17:59 09/18/24 06:40 0.25 MG Bumetanide 80 ml @ 2 mls/hr AD IV 09/16/24 10:30 10/16/24 10:29 Hold Bumetanide (Bumex 1mg Vial) 0.5 mg Q8H IVP 09/17/24 14:30 10/17/24 14:29 Cefepime HCl (MAXipime 1 GM vial) 1 gm Q12H IVPB 09/16/24 14:00 09/16/24 11:26 DC Cefepime HCl (MAXipime 1 GM vial) 1 gm Q8H IVPB 09/15/24 18:00 09/16/24 09:15 DC 09/16/24 01:24 1 GM Dexmedetomidine/ Sodium Chloride (PRECEdex 400MCG/ 100ML-NS) 400 mcg PROTOCOL IV 09/16/24 10:00 10/16/24 09:59 09/18/24 13:48 400 MCG Dextrose (D50w) 50 ml AD PRN IV HYPOGLYCEMIA PROTOCOL 09/15/24 19:00 10/15/24 18:59 Dextrose/Sodium Chloride 1,000 ml @ 0 mls/hr AD IV 09/16/24 16:30 09/17/24 12:30 DC Dobutamine HCl/ Dextrose 250 ml @ 0 mls/hr PROTOCOL IV 09/16/24 11:30 10/16/24 11:29 09/17/24 21:30 14.4 MLS/HR Doxycycline Hyclate 250 ml @ 125 mls/hr Q12H IV 09/16/24 16:30 09/26/24 16:29 09/18/24 03:29 125 MLS/HR Famotidine (Pepcid 20mg Vial) 20 mg BID IV 09/15/24 21:00 10/15/24 20:59 09/18/24 08:25 20 MG Fentanyl Citrate 100 ml @ 2.5 mls/hr PROTOCOL IV 09/15/24 22:30 09/16/24 21:37 DC Fentanyl/Sodium Chloride 250 ml @ 2.5 mls/hr PROTOCOL IV 09/16/24 22:00 09/21/24 21:59 09/18/24 08:24 2.5 MLS/HR Furosemide (LASix 40MG VIAL) 20 mg BID IV 09/16/24 21:00 09/16/24 10:18 DC Furosemide (LASix 40MG VIAL) 40 mg BID IV 09/16/24 07:30 09/16/24 10:07 DC 09/16/24 09:33 40 MG Furosemide (LASix 40MG VIAL) 80 mg Q8H IV 09/15/24 17:30 09/16/24 07:18 DC 09/16/24 01:45 80 MG Glucagon (Glucagon 1mg Kit) 1 mg AD PRN IM HYPOGLYCEMIA PROTOCOL 09/15/24 19:00 10/15/24 18:59 Heparin Sodium (Porcine) (HEParin 5,000 UNIT VIAL) DOSE PER WEIGHT BA... PROTOCOL PRN IV WT-BASED HEPARIN PROTOCOL 09/15/24 19:30 10/15/24 19:29 Heparin Sodium/ Dextrose 250 ml @ 0 mls/hr PROTOCOL IV 09/15/24 19:30 10/15/24 19:29 09/16/24 20:53 8.8 MLS/HR Hydrocortisone Sodium Succinate (Solu-corTEF 100MG) 50 mg Q6H IV 09/16/24 10:00 10/16/24 09:59 09/18/24 10:13 50 MG Insulin Glargine (LANtus 100 UNITS/ML 10 ML VIAL) 15 units BID@0730,2100 SQ 09/16/24 11:00 10/16/24 10:59 09/18/24 06:47 15 UNITS Insulin Glargine (LANtus 100 UNITS/ML 10 ML VIAL) 15 units BID@0730,2100 SQ 09/16/24 21:00 09/16/24 10:38 DC Insulin Human Regular (humuLIN R 100 UNIT/ML 3ML) INSULIN SLIDING SCAL... Q6H6 SQ 09/16/24 00:00 09/17/24 12:31 DC 09/17/24 12:01 2 UNIT Insulin Human Regular (humuLIN R 100 UNIT/ML 3ML) INSULIN SLIDING SCAL... Q6H6 SQ 09/17/24 18:00 10/17/24 17:59 09/18/24 12:40 16 UNIT Insulin Human Regular 100 unit/ Sodium Chloride 101 ml @ 0 mls/hr PROTOCOL IV 09/16/24 16:30 09/17/24 12:30 DC 09/16/24 18:59 8 MLS/HR Ipratropium [place] (AtrovENT UD) 0.5 MG P2NOLRI IH 09/16/24 10:00 10/16/24 09:59 09/18/24 10:31 0.5 MG Lactulose (Constulose 20gm/ 30ml Udcup) 20 gm BID PO 09/17/24 21:00 10/17/24 20:59 09/18/24 08:25 20 GM Magnesium Sulfate 50 ml @ 0 mls/hr PROTOCOL IV 09/16/24 16:30 09/17/24 12:30 DC 09/17/24 09:05 50 MLS/HR Magnesium Sulfate 50 ml @ 0 mls/hr PROTOCOL PRN IV hypomagnesium 09/16/24 05:30 09/16/24 16:34 DC 09/16/24 06:24 25 MLS/HR Meropenem (Merrem) 1 gm Q12H IVPB 09/16/24 12:00 09/26/24 11:59 09/18/24 12:36 1 GM Meropenem 1 gm/ Sodium Chloride 100 ml @ 33.333 mls/ hr Q12H IV 09/16/24 12:00 09/16/24 11:41 DC Methylprednisolone Sodium Succinate (Solu-medROL 40MG) 40 mg Q12H IVP 09/15/24 19:00 09/16/24 09:45 DC 09/16/24 06:00 40 MG Midazolam HCl (Midazolam 100mg-0.9% NS 100ml) 100 ml PROTOCOL IV 09/15/24 22:30 09/16/24 10:09 DC 09/16/24 04:58 100 ML Montelukast Sodium (SinguLAIR) 10 mg DAILY PO 09/17/24 09:00 10/17/24 08:59 09/18/24 08:25 10 MG Norepinephrine Bitartrate (Norepineph 16 Mg/250ml NS Premix) as per protocol PROTOCOL IV 09/15/24 22:30 10/15/24 22:29 09/16/24 18:58 0.1 MG Pharmacy Profile Note (Pharmacy Communication) 1 each ONCE MISC 09/18/24 13:00 09/25/24 12:59 Phenylephrine HCl 100 mg/Sodium Chloride 250 ml @ 0 mls/hr AD PRN IV TITRATE 09/17/24 23:00 10/17/24 22:59 09/17/24 23:34 0 MLS/HR Polyethylene Glycol (MIRalax 3350 17 GM POWD.PACK) 17 gm DAILY PO 09/18/24 09:00 10/18/24 08:59 09/18/24 08:25 17 GM Potassium Chloride/Dextrose/ Sod Cl 1,000 ml @ 0 mls/hr AD IV 09/16/24 16:30 09/17/24 12:30 DC Potassium Chloride 100 ml @ 50 mls/hr AD PRN IV POTASSIUM PROTOCOL 09/16/24 05:30 09/18/24 09:13 DC 09/18/24 08:27 50 MLS/HR Potassium Chloride 100 ml @ 100 mls/hr AD PRN IV POTASSIUM PROTOCOL 09/18/24 09:30 10/18/24 09:29 Potassium Chloride (K-Dur/Klor-Con 20meq) 20 meq AD PRN PO POTASSIUM PROTOCOL 09/18/24 09:30 10/18/24 09:29 Potassium Chloride (KCl 10% Elixir 20meq/15ml) 20 meq AD PRN PO POTASSIUM PROTOCOL 09/18/24 09:30 10/18/24 09:29 Sodium Chloride 250 ml @ 0 mls/hr Q0M IV 09/15/24 22:30 09/16/24 16:36 DC Sodium Chloride 250 ml @ 0 mls/hr Q0M IV 09/17/24 23:00 10/17/24 22:59 09/17/24 23:00 1,200 MLS/HR Sodium Chloride 500 ml @ 0 mls/hr Q0M IV 09/16/24 10:00 09/18/24 12:34 DC Sodium Chloride 1,000 ml @ 0 mls/hr Q0M IV 09/15/24 11:30 10/15/24 11:29 Vancomycin HCl 250 ml @ 145 mls/hr Q48H IV 09/20/24 14:00 09/30/24 13:59 Vasopressin 40 units/Sodium Chloride 40 ml @ 0 mls/hr PROTOCOL IV 09/15/24 18:00 10/15/24 17:59 09/17/24 23:32 2.4 MLS/HR Vital Signs (last 8hr) Date Time Temp Pulse Resp B/P (MAP) Pulse Ox O2 Delivery O2 Flow Rate FiO2 09/18/24 13:47 126 11 122/71 (88) 95 111/63 (79) 09/18/24 13:45 124 13 121/72 (88) 95 09/18/24 13:30 127 12 125/74 (91) 95 09/18/24 13:15 120 13 126/73 (90) 96 09/18/24 13:00 121 10 112/69 (83) 96 09/18/24 12:07 98.4 111 12 91/62 (72) 97 71/44 (53) 09/18/24 12:02 109 40 09/18/24 11:44 96 Ventilator+ 50 09/18/24 11:02 122 12 93/62 (72) 97 79/50 (60) 09/18/24 11:02 122 12 93/62 (72) 97 79/50 (60) 09/18/24 10:48 134 14 87/63 (71) 100 83/51 (62) 09/18/24 10:32 114 13 107/71 (83) 100 92/58 (69) 09/18/24 10:31 118 15 09/18/24 10:02 117 12 109/72 (84) 99 93/62 (72) 09/18/24 09:17 108 14 118/71 (87) 99 103/60 (74) 09/18/24 09:13 50 09/18/24 09:06 125 60 09/18/24 09:02 111 10 107/72 (84) 99 93/57 (69) 09/18/24 08:47 124 13 106/73 (84) 99 107/73 (84) 09/18/24 08:32 107 15 120/74 (89) 100 108/79 (89) 09/18/24 08:17 122 12 118/72 (87) 100 99/69 (79) 09/18/24 08:02 115 11 114/76 (89) 100 105/66 (79) 09/18/24 07:47 119 12 125/80 (95) 100 125/65 (85) 09/18/24 07:32 118 16 125/80 (95) 100 123/75 (91) 09/18/24 07:30 100 Ventilator+ 60 09/18/24 07:17 123 14 122/79 (93) 100 121/74 (90) 09/18/24 07:02 98.8 121 14 118/78 (91) 100 118/63 (81) 09/18/24 06:42 116 15 09/18/24 06:40 116 60 DIAGNOSTICS / RADIOLOGY: REASON: FEVER ORDERING PHYSICIAN: AMY VALLE AGHERACLIO PROCEDURE: CXR1VW - CHEST 1VW CHEST 1VW REASON: FEVER COMPARISON: 09/17/2024 FINDINGS: Heart size is normal. There are no vascular congestion. There is a small right pleural effusion with some basilar atelectasis, there may be a minimal left ET and NG and PICC line remain in good position. IMPRESSION: 1. Small right pleural effusion, although this does appear somewhat increased in size, there may be a minimal left effusion. 2. Tubes and lines remain in good position. DICTATED BY: ANTHONY MURPHY MD DATE: 09/18/24838 REASON: PICC LINE PLACEMENT ORDERING PHYSICIAN: JACKELINE AGUILAR PROCEDURE: CXR1VW - CHEST 1VW Exam Type: CHEST 1VW Clinical Information: PICC LINE PLACEMENT Comparison: None Findings: RightPICC line is noted with tip within the distal superior vena cava and there are no other interval changes. IMPRESSION: Right PICC line as noted. DICTATED BY: KATHERINE SHARPE MD DATE: 09/17/241842 REASON: cardiogenic shock (RV failure). Assess RV/LVEF ORDERING PHYSICIAN: VALENTIN CAREY MD PROCEDURE: ECHO [facility] - ECHO 2-D COMPLETE APPROVED REPORT EXAM: Two-dimensional and M-mode echocardiogram with Doppler and color Doppler. INDICATION ICD: Cardiogenic Shock R57.0 2D Dimensions RVDd 4.1 cm LVEF(%) 46.9 (>50%) LVED Vol(simp.) 82.9 mL IVSd 0.7 (0.7-1.1cm) FS(%) 23 % LVES Vol(simp.) 62.4 mL LVDd 4.3 (3.8-5.6cm) LA (2D) 4.4 (1.6-4.0cm) LVEF(%, simp.) 25 % PWd 0.9 (0.7-1.1cm) Ao Root(2D) 2.6 (2.0-3.7cm) LA ESV INDEX (4CH) 34.00 mL/m2 IVSs 0.9 cm LVOT diam 2.2 (1.8-2.4cm) LVDs 3.3 (2.5-4.0cm) IVC diam 2.3 cm PWs 1.1 cm M-Mode Dimensions EPSS 1.0 cm LA (MM) 4.0 (1.6-4.0cm) Ao Root(MM) 2.3 (2.0-3.7cm) Aortic Valve AoV VTI 0.3 m Ao Mean GR 6.0 mmHg LVOT VTI 0.13 m MOHINDER (VMAX) 1.9 cm2 MOHINDER (VTI) 1.9 cm2 Mitral Valve MV E Vmax 51.9 cm/s DECEL Time 148 ms MV A Vmax 36.4 cm/s P 1/2 T 49 ms E/A ratio 1.4 MVA (PHT) 4.5 cm2 Tricuspid Valve TR Vmax 3.0 m/s TR Peak GR 35.5 mmHg Left Ventricle Left ventricular cavity size is normal. There is global hypokinesis of the left ventricle. There is normal left ventricular wall thickness. LVEF is 20-25%. Unable to assess diastology due to poor tissue Doppler signals. Right Ventricle The right ventricle is normal size. Right ventricular systolic function is severely reduced. Atria The left atrium is severely dilated. The right atrium is severely dilated. Aortic Valve The aortic valve is calcified and displays decreased opening. No aortic regurgitation is present. Hemodynamically significant valvular aortic stenosis cannot be excluded. Mitral Valve Mitral valve leaflets open well. There is trace mitral valve regurgitation noted. There is no mitral valve stenosis. Tricuspid Valve The tricuspid valve leaflets appear normal. There is no tricuspid valve regurgitation noted. Pulmonic Valve Pulmonic valve is not well visualized. There is no pulmonic valvular regurgitation. Great Vessels The aortic root is normal in size. IVC is dilated and collapses <50% with inspiration. Pericardium No pericardial effusion. Other Information Quality : Technically Limited Technically limited study due to Patient could not be placed onto left side, intubated, COPD. Conclusion Technically difficult study. Left ventricular cavity size is normal. LVEF is 20-25% with global hypokinesis of the left ventricle. Unable to assess diastology due to poor tissue Doppler signals. Right ventricular systolic function is severely reduced. The left atrium appears severely dilated. No hemodynamically significant valvular abnormalities by Doppler. IVC is dilated and collapses <50% with inspiration. No pericardial effusion. DICTATED BY: LAZ LYNN MD DATE: 09/16/24 1336 REASON: ETT Placement ORDERING PHYSICIAN: LADY GREEN MD PROCEDURE: CXR1VW - CHEST 1VW Exam Type: CHEST 1VW Clinical Information: ETT Placement Comparison: None Findings: Endotracheal tube is noted with tip approximately 6cm from sruthi and no interval changes are seen otherwise. IMPRESSION: Endotracheal tube tip as noted. DICTATED BY: KATHERINE SHARPE MD DATE: 09/15/24 6203 LABORATORY: [ ] Hematology Labs: Test 09/18/24 03:10 Range/Units White Blood Count 15.1 H 4.8-10.8 K/uL Red Blood Count 5.95 4.50-6.20 MIL/uL Hemoglobin 13.7 L 14.0-18.0 g/dL Hematocrit 45.8 42-54 % Mean Corpuscular Volume 77.0 L 79-99 fL Mean Corpuscular Hemoglobin 23.0 L 27.0-33.0 pg Mean Corpuscular Hemoglobin Concent 29.9 L 32.0-36.0 g/dL Red Cell Distribution Width 20.6 H 11.0-15.5 % Platelet Count 133 # 130-400 K/uL Mean Platelet Volume 10.2 7.5-10.5 fL Immature Granulocyte % (Auto) 1.0 0-1 % Neutrophils (%) (Auto) 83.9 H 40.0-77.0 % Lymphocytes (%) (Auto) 8.8 L 21.0-51.0 % Monocytes (%) (Auto) 6.1 3.0-13.0 % Eosinophils (%) (Auto) 0.0 0.0-8.0 % Basophils (%) (Auto) 0.2 0.0-5.0 % Neutrophils # (Auto) 12.7 H 1.8-7.7 K/uL Lymphocytes # (Auto) 1.3 1.0-4.8 K/uL Monocytes # (Auto) 0.9 0.1-1.0 K/uL Eosinophils # (Auto) 0.00 0.00-0.70 K/uL Basophils # (Auto) 0.03 0.00-0.20 K/uL Absolute Immature Granulocyte (auto 0.15 0-1 K/uL Nucleated Red Blood Cells 0.3 H 0.0-0.19 % Chemistry Labs: Test 09/18/24 12:04 09/18/24 12:02 09/18/24 03:10 09/17/24 08:35 Range/Units Whole Blood Glucose 317 H 70-110 MG/DL Potassium Level 3.3 L 3.5-5.1 mmol/L Magnesium Level 1.80 1.80-2.40 mg/dL Sodium Level 141 136-145 mmol/L Chloride Level 102 101-111 mmol/L Carbon Dioxide Level 28 21-32 mmol/L Blood Urea Nitrogen 64 H 7-18 mg/dL Creatinine 1.8 H 0.5-1.3 mg/dL Glomerular Filtration Rate Calc 37 >90 mL/min Random Glucose 309 H 70-105 mg/dL Total Calcium 6.9 L 8.5-10.1 mg/dL Total Bilirubin 3.1 H 0.2-1.0 mg/dL Aspartate Amino Transf (AST/SGOT) 3573 *H 10-37 U/L Alanine Aminotransferase (ALT/SGPT) 3941 *H 12-78 U/L Alkaline Phosphatase 214 H 50-136 U/L Total Protein 5.5 L 6.0-8.3 g/dL Albumin 2.3 L 3.5-5.0 g/dL Lactic Acid Level 4.1 H 0.8-2.5 mmol/L Test 09/17/24 03:55 09/17/24 03:35 Range/Units B-Type Natriuretic Peptide 1900 H 0-100 pg/mL Procalcitonin 0.71 H 0.05-0.5 ng/mL Coagulation Labs: Test 09/17/24 21:20 09/17/24 03:55 Range/Units Activated Partial Thromboplast Time 55.0 H 26.3-35.5 SEC Prothrombin Time 21.6 H 9.6-11.6 SEC Prothromb Time International Ratio 2.07 H 0.85-1.15 ASSESSMENT: Acute renal failure Acute hypoxic and hypercapnic respiratory failure Mixed respiratory and metabolic acidosis Acute on chronic COPD exacerbation Acute on chronic heart failure with systolic dysfunction with EF of 45-50% Community-acquired pneumonia rule out Hypotension differential cardiogenic versus sepsis Sepsis rule out Lactic acidosis Atrial fibrillation status post ablation on 09/15/2024 History of chronic anticoagulation with Eliquis Hypertension Hyperlipidemia Debility History of right AKA PLAN: Labs, diagnostic, radiologic exams reviewed and interpreted by myself and supervising physician Family has wishes to proceed with comfort measures Discontinue all lab work as per family wishes May use Dilaudid 0.5 mg IV every 6 hours as needed for severe pain Treatment plan discussed with family Questions were answered We have discussed with the other team physicians in detail about the care plan We will continue to monitor the patient closely ATTESTATION BY PHYSICIAN I have seen and examined the patient. I reviewed the documentation, medical decision making, and treatment plan as noted by the mid-level provider above. I agree with the findings and plan of care. GEORGETTE HWANG MD, [facility] Sep 18, 2024 14:29 GEORGETTE HWANG MD Sep 18, 2024 22:37
[2024-09-18] MEDS ORDERED: HALOPERIDOL INJ 5 MG/ML VIAL IV PRN ×2 (15:00)
[2024-09-18] MEDS ORDERED: ARTIFICAL TEARS SOL 15 ML OU PRN ×2 (15:00→16:00)
[2024-09-18] MEDS ORDERED: acetaMINOPHEN 325 MG TAB PO PRN (15:00)
[2024-09-18] MEDS ORDERED: CHLORHEXIDINE GLUCONATE 15 ML MOUTHWASH MM SCH (15:00)
[2024-09-18] MEDS ORDERED: acetaMINOPHEN 650 MG SUPPOSITORY RC PRN (15:00)
[2024-09-18] MEDS ORDERED: morPHINE20MG/ML SOLN 100 MG/5 ML ML PO PRN (15:00)
[2024-09-18] MEDS: LORazepam 2 MG/ML 1 ML VIAL IVP PRN (15:19)
[2024-09-18] MEDS: morPHINE 2 MG SYG IVP PRN (15:19)
[2024-09-18] MEDS: SCOPOLAMINE HYDROBROMIDE 1 EACH ADH..PATCH TD SCH (15:40)
--- NOTE | 2024-09-18 15:44 | NUR ---
SCOPOLAMINE, MORPHINE 2 MGS AND ATIVAN 1 MG, ADM. PRIOR TO EXTUBATING. EXTUBATED AT 15:44. FAMILY AT BEDSIDE. INHALATION THERAPY TEACHER REQUESTED AND CALLED AND LEFT MESSAGE TWICE. NO RESPONSE, WANTED TO GO AHEAD AND CONTINUE WITH WITHDRAWING.
--- NOTE | 2024-09-18 16:13 | NUR ---
PRONOUNCED AT 16:13, BY JACKELINE AGUILAR NP.
--- NOTE | 2024-09-18 17:10 | NUR ---
[facility] ADM. THEN PICKED UP BY SECURITY. PT PRONOUNCED BY JACKELINE AGUILAR, ALEXIS, EMILY AN FOR DR REHMAN ALSO MADE AWARE. DR FLORES, AND DR HWANG MADE AWARE OF WITHDRAWAL OF CARE. CHAPLAIN LEONELA CAME TO PRAY OVER PT.
--- NOTE | 2024-09-18 21:47 | PN ---
[facility] PROGRESS NOTE Date Patient Seen: Sep 18, 2024 Time of Visit: 11:00 Supervising Physician: Bud Funk MD Primary Care Physician: Admitting team: [facility] hospitalist team Outpatient Specialists: Inpatient Consults: [facility], pulmonary/critical care team PROBLEM LIST: Combined cardiogenic shock with Septic shock not POA Right lower lobe pneumonia, suspected aspiration not POA ( Gram neg Rods) ARDS PF Ratio 66, now 100 Atrial fibrillation s/p ablation on 09/15/2024 -remained intubated s/p procedure due to respiratory distress during procedure on 09/15/2024 DKA POA, resolved Acute hypoxemic and hypercapnic respiratory failure Acute on chronic obstructive pulmonary exacerbation Acute on chronic CHF with LVEF is 20-25% with global hypokinesis of the left ve ntricle on 2D echo 09/16/24 Severely reduced Rt ventricle systolic function on 2 D echo 09/16/24 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 Qqpb-[id number]-yhhowcid aortic stenosis Severe pulmonary hypertension RVSP 81.5 mm Hg on 2D echo 08/10/24 Chronic AFib, on chronic anticoagulation with the Eliquis Severe transaminitis 2/2 liver shock Pulmonary hypertension Mild moderate mitral regurgitation Hyperlipidemia Debility/frailty History of AKA, fatty liver INTERVAL HISTORY: Patient is 83 year old gentleman with underling hx of pulmonary htn, essential HTN, mild aortic stenosis, CHF, diagnose with Atrial flutter therefore he has been admitted and plan was to proceed with ablation, procedure done and he was noted to be on respiratory distress, he was intubated and remains sedated, as per patient will be very upset because he was intubated, at this time plan is to start him weaning off from sedation slowly in the morning tomorro obtain ABG's, we will follow up closely. 09/16-patient continues intubated on mechanical ventilation with a FiO2 of 100% and PEEP of five with a PMH of 66 unable to start SVTs. Patient is sedated with Precedex and fentanyl and Versed as needed. Dobutamine drip per Cardiology recommendation and currently on Levophed at 0.2 micrograms/kilogram per minute and vasopressin at 0.04 micrograms/kilogram per minute he continues with a heparin drip, and Eliquis from home hold. Liver enzymes severely elevated likely from liver shock. Poor urine output overnight 400 mL since yesterday we will start patient on albumin and 0.5 milligrams/hour and stopped Lasix pushes. Lactic acid trending down still slightly elevated at 5. WBCs trending down 16.8 H&H is 14.4/50.8 with a platelet count of [id number]. T-max was 100.4 and T low was 96.1 added doxycycline for some MRSA coverage in community-acquired pneumonia coverage. Potassium was 5.2 give Lokelma 10 mg x 1 dose BUN 33 creati nine 1.6 GFR of 42 glucose is 204 mg/dL lactic acid was 6.8 trending down at 5.9 ketones one total bili 3.1, patient with mild DKA with ketones of one anion gap of 15 and ABG showed ABG of pH of 7.33 pCO2 of 39 PO2 of 63.2 bicarb of 20. /-patient continues sedated with Precedex and fentanyl and on mechanical ventilation. No further fevers with a T-max of 99.9 has been sustained this temperature in the last 24 hours. Heart rate in the 80s blood pressure 102/56 on multiple pressors with vasopressor at 0.04 micrograms/kilogram per minute and dobutamine at 3 micrograms/kilogram per minute per Cardiology. Urine output was 4.1 L in the last 24 hours on Bumex drip. Holding Bumex drip for now. On ABG pH of 7.5 pCO2 28 PO2 60.5 bicarb 21.3 with a ABG O2 saturation 90.9. PF ratio 100 new settings from ventilator as follows: Assist-control volume control tidal volume 480 respiratory rate of 20, FiO2 of 70% and PEEP of 5. Lactic acid trending down 3.95 from yesterday which was 6.10 WBCs improving now to a 0.5 H&H is normal platelet count is [id number]. Chemistry creatinine 1.9 GFR of 34 glucose of 230 mg/dL total calcium. We will continue to wean pressors first vasopressin then dobutamine last. 09/18- overnight patient's condition has worsened. pt is now back on 3 pressors including Subhash-Synephrine, vasopressin, and dobutamine with marginal blood pressures he is systolic in the 90s heart rate 120 saturating 97% with FiO2 of 50% on the ventilator. He developed a fever overnight of 101.7. Urine output 4.2 L in the last 24 hours with a balance of +115ml. WBCs RBCs having increased to 15.1 today H&H 13.7/45.8 platelet count is [id number]. Chemistries sodium 141 potassium was initially 2.9 corrected with protocol increased to 3.3 covered again. Creatinine was 1.8 GFR of 37 glucose of 109 mg/dL total calcium is 6.9 total bili of 3.1 AST at 2473 alkaline phosphatase 214 albumin 2.3 total protein 5.5. Urine culture growing 20k to 50k CFU per mL. Respiratory culture shows Pseudomonas aeruginosa. Patient's at bedside informed her of the current clinical findings, inpatients critical status. Patient's stated she does not want patient intubated any longer because his wishes were not to be on mechanical ventilation. She reports that she will have some more family come in and move forward with withdraw. Per primary RN pt's signed withdraw of care form and she wishes to move forward with comfort measures. That her family is ready and they are aware that pt will likely shortly after that due to multiple pressor support. Comfort measure orders placed. Patient at 1613 Dr Guzman made aware. REVIEW OF SYSTEMS: Unable to obtain ROS from patient due to patient intubated and sedated. PHYSICAL EXAM: GENERAL: Intubated and sedated HEENT: EOMI, Sclera non icteric, moist mucosa. Endotracheal tube and OG in place. NECK: Supple, no JVD, trachea midline LUNGS: Upper lobes clear, lower lobes diminished bilaterally. No wheezes HEART: Regular rate and rhythm. Normal S1 and S2, without murmurs ABD: Abdomen soft, nontender. Bowel sounds present EXT: No clubbing cyanosis or + edema NEURO: Intubated and sedated Vital Signs (last 8hr) Date Time Temp Pulse Resp B/P (MAP) Pulse Ox O2 Delivery O2 Flow Rate FiO2 09/18/24 16:13 0 0 0/0 0 09/18/24 16:00 5/5 09/18/24 15:45 8/7 09/18/24 15:44 2.0 28 09/18/24 15:30 107 6 59/41 88 09/18/24 15:15 119 7 99/60 94 09/18/24 15:00 118 14 134/75 94 09/18/24 14:47 127 11 127/73 94 09/18/24 14:45 126 10 130/73 94 09/18/24 14:30 128 12 126/74 95 09/18/24 14:15 124 16 125/72 95 09/18/24 14:00 125 14 128/75 95 09/18/24 13:47 126 11 122/71 (88) 95 111/63 (79) 09/18/24 13:45 124 13 121/72 (88) 95 LABS: Hematology Labs: Test 09/18/24 03:10 Range/Units White Blood Count 15.1 H 4.8-10.8 K/uL Red Blood Count 5.95 4.50-6.20 MIL/uL Hemoglobin 13.7 L 14.0-18.0 g/dL Hematocrit 45.8 42-54 % Mean Corpuscular Volume 77.0 L 79-99 fL Mean Corpuscular Hemoglobin 23.0 L 27.0-33.0 pg Mean Corpuscular Hemoglobin Concent 29.9 L 32.0-36.0 g/dL Red Cell Distribution Width 20.6 H 11.0-15.5 % Platelet Count 133 # 130-400 K/uL Mean Platelet Volume 10.2 7.5-10.5 fL Immature Granulocyte % (Auto) 1.0 0-1 % Neutrophils (%) (Auto) 83.9 H 40.0-77.0 % Lymphocytes (%) (Auto) 8.8 L 21.0-51.0 % Monocytes (%) (Auto) 6.1 3.0-13.0 % Eosinophils (%) (Auto) 0.0 0.0-8.0 % Basophils (%) (Auto) 0.2 0.0-5.0 % Neutrophils # (Auto) 12.7 H 1.8-7.7 K/uL Lymphocytes # (Auto) 1.3 1.0-4.8 K/uL Monocytes # (Auto) 0.9 0.1-1.0 K/uL Eosinophils # (Auto) 0.00 0.00-0.70 K/uL Basophils # (Auto) 0.03 0.00-0.20 K/uL Absolute Immature Granulocyte (auto 0.15 0-1 K/uL Nucleated Red Blood Cells 0.3 H 0.0-0.19 % Chemistry Labs: Test 09/18/24 12:04 09/18/24 12:02 09/18/24 03:10 09/17/24 08:35 Range/Units Whole Blood Glucose 317 H 70-110 MG/DL Potassium Level 3.3 L 3.5-5.1 mmol/L Magnesium Level 1.80 1.80-2.40 mg/dL Sodium Level 141 136-145 mmol/L Chloride Level 102 101-111 mmol/L Carbon Dioxide Level 28 21-32 mmol/L Blood Urea Nitrogen 64 H 7-18 mg/dL Creatinine 1.8 H 0.5-1.3 mg/dL Glomerular Filtration Rate Calc 37 >90 mL/min Random Glucose 309 H 70-105 mg/dL Total Calcium 6.9 L 8.5-10.1 mg/dL Total Bilirubin 3.1 H 0.2-1.0 mg/dL Aspartate Amino Transf (AST/SGOT) 3573 *H 10-37 U/L Alanine Aminotransferase (ALT/SGPT) 3941 *H 12-78 U/L Alkaline Phosphatase 214 H 50-136 U/L Total Protein 5.5 L 6.0-8.3 g/dL Albumin 2.3 L 3.5-5.0 g/dL Lactic Acid Level 4.1 H 0.8-2.5 mmol/L Test 09/17/24 03:55 09/17/24 03:35 Range/Units B-Type Natriuretic Peptide 1900 H 0-100 pg/mL Procalcitonin 0.71 H 0.05-0.5 ng/mL Coagulation Labs: Test 09/17/24 21:20 09/17/24 03:55 Range/Units Activated Partial Thromboplast Time 55.0 H 26.3-35.5 SEC Prothrombin Time 21.6 H 9.6-11.6 SEC Prothromb Time International Ratio 2.07 H 0.85-1.15 DIAGNOSTICS / RADIOLOGY RESULTS: [ ] PLAN comfort measures per family request family signed withdrawal of care. NEURO: Minimize central acting medications as possible. Fall Precautions. Well lighted room through the day and minimize interruptions through the night to prevent acute delirium. Maintain sedation with Precedex and fentanyl if needed add Versed drip. PULMONARY: Supplemental 02 as needed Titrate Fio2 to keep Spo2 > or = 90% DuoNebs and CPT as needed IS hourly while awake for pulmonary hygiene Out of bed to chair as tolerated VAP Bundle Wean FiO2 as tolerated PF ratio 100 Family refusing proning Ventilator settings adjusted to: FiO2 of 70%, peep of 5. respiratory rate of 20, TV 480 CARDIOVASCULAR: Follow hemodynamics. Titrate vasopressor to keep MAP >65 or systolic blood pressure >95mmHg Continuous telemetry monitoring Vital signs per ICU protocol Dobutamine drip per Cardiology Follow cardiology recommendations Heparin drip for anticoagulation GI & NUTRITION: Continue nutritional support Aspirations precautions Prokinetic agents and laxatives as needed. NPO for now May start tube feedings feedings tomorrow KIDNEYS & ELECTROLYTES: Strict monitoring of intake and output Daily weights Avoid nephrotoxic agents Monitor electrolytes and replace as needed Goal urine output of 30mL/hr or 0.5mL/kg/hr Monitor kidneys closely Bumex drip at 0.5 milligrams/hour BNP q.4 hours per DKA protocol Intake and Output 09/16/24 07:00 Intake Total 1274.1 ml Output Total 1000 ml Balance 274.1 ml Intake IV Total 1274.1 ml Output Urine Total 1000 ml ENDOCRINE: Maintain blood glucose between 100-180 at all times. Insulin sliding scale for blood glucose management DKA protocol insulin drip INFECTIOUS DISEASE: Trend temperature. Neal-culture if febrile. Blood cultures -Gram-positive rods Respiratory cultures- Urine cultures - Antibiotics: Meropenem per ID Follow ID recommendations. HEMATOLOGY & COAGULATION: Monitor H&H. Keep Hgb > 7 Transfuse 1 unit of PRBC for Hgb < 7 Transfuse 1 pack of platelets of platelets < 20, 000 Watch for any signs and symptoms of bleeding SKIN: Pressure ulcer prevention per facility protocol DVT prophylaxis with SCDs and heparin drip, Protonix b.i.d. Rehab: PT/OT Code Status: Full Resuscitation Disposition: [Admit to ICU] Other: Total patient critical care time exceeds 60 minutes excluding all procedures. JACKELINE AGUILAR [facility] Sep 18, 2024 21:47
--- NOTE | 2024-09-19 03:24 | PN ---
INFECTIOUS DISEASE FOLLOWUP NOTE DATE OF SERVICE: 09/18/2024 SUBJECTIVE: The patient is seen and examined at bedside today. The patient has remained intubated and sedated on ventilatory support. The patient is on 3 different vasopressors. Case was discussed with . is considering withdrawal of life support. No documented diarrhea. No vomiting. PHYSICAL EXAMINATION: VITAL SIGNS: Temperature 98.9. EYES: No icterus. Pupils equal and reactive. HENT: No oral thrush. Orally intubated, on ventilatory support. NECK: Supple. No JVD or thyromegaly. LUNGS: Good air entry. No rales. No rhonchi. CARDIOVASCULAR SYSTEM: S1, S2 regular. No murmur heard. ABDOMEN: Full, soft, nontender. Bowel sounds present. CENTRAL NERVOUS SYSTEM: The patient is sedated. SKIN: No rashes. No itchiness. MUSCULOSKELETAL: No joint swelling, erythema or tenderness. BACK: No deformity, no pressure ulcer. LABORATORY DATA: WBC 15.1, hemoglobin 13.7, and platelet 133. Sodium 141, potassium 3.9. BUN 64, creatinine 1.8. ASSESSMENT: An 83-year-old male who was admitted for ablation. Current problems include: * Sepsis. * Gram-positive bacteremia. * Hypoxic respiratory failure, status post intubation. * Urinary tract infection. * Atrial fibrillation. * Renal failure. * Diabetes mellitus. * Septic shock. PLAN: * Continue critical care support. * Continue ventilatory support. * Continue vasopressor. * Monitor electrolytes and correct as needed. * Continue NG tube feeding. * Continue DVT prophylaxis. * Avoid nephrotoxic medications. * has consented on giving comfort measures. TID: [id number] RECEIPT: [id number]
--- NOTE | 2024-09-19 10:18 | DS ---
Discharge Summary Hospital Course Summary: Date of service September 18, 2024 The patient initially admitted to the hospital September 15, 2024 with the following history of the present illness: 83-year-old male with past medical history of COPD, CHF, hypertension, DM two, PVD status post right AKA, history of atrial fibrillation on anticoagulation who presented to the hospital secondary to atrial fibrillation. History obtained from chart review, patient's had provider. Patient was scheduled for elective AFib ablation by Cardiology. Postprocedure the patient was noted to have respiratory acidosis and was unable to be liberated from the ventilator. Per patient has had chronic COPD and was having cough with associated sputum production. did not notice any new symptoms present. She denied any fever, chills. Additionally patient was also found to be hypotensive and needed to be started on Levophed and dobutamine. Patient was thereafter admitted in the ICU. History is fairly limited since patient is currently intubated. On chart review patient was previously admitted for heart failure exacerbation with community- acquired pneumonia and was discharged on August 29, 2024. When seen at bedside patient is on the ventilator on 100% FiO2. His blood pressure was noted to be in the 160 systolics. ABG showed pH of 7.127/71/93.3/22. Labs are currently pending. 09/16 The patient has been seen and examined today during rounding, he remains admitted to the intensive care unit, remains intubated, mechanical ventilation. The patient is on fentanyl as well as Precedex. The patient also on Levophed, vasopressin drips. Patient on dobutamine, heparin drip and Bumex drip. BP 127/76, heart rate of 85, O2 saturation of 94-95%. CBC showing a WBC of 16.8. CMP with sodium 142, potassium 5.2, BUN 33, creatinine 1.6. AST of 4055, ALT 2595. ABG shows a pH of 7.33, pCO2 39, PO2 63.2, bicarbonate of 20. 09/17 the patient has been seen and examined today during my rounding, remains admitted to the intensive care unit, remains intubated, mechanical ventilation, on vasopressors with vasopressin, remains on dobutamine drip. sedated with Precedex and fentanyl, the patient remains on heparin drip. Blood pressure 110/59, heart rate of 85, saturating 98% on mechanical ventilation, FiO2 80%. Laboratory data with a white blood cell count trending down at 12.5, hemoglobin 14.2, hematocrit 47.2, sodium 138, potassium 3.7, BUN of 54, creatinine 1.9, liver enzymes with the AST 5525, ALT 4267. ABG showing a pH of 7.33, pCO2 39, PO2 63.2. Chest x-ray showing mild bilateral pulmonary infiltrates maybe related to mild pulmonary vascular congestion with a possible superimposed pneumonitis. 09/18 the patient has been seen and examined today during my rounding, remains admitted to the intensive care unit, remains intubated, mechanical ventilation, on amiodarone drip, on phenylephrine and levophed for blood pressure support, remains on fentanyl, getting IV antibiotics during my visit, continue on precedex. On heparin drip. Blood pressure of 109/72, HR 118, oxygen saturation 99%. CBC with hemoglobin 13.7, hematocrit 45.8, WBC 15.1. ABG pH 7.5, PCO2 28, O2 129.5. Chest x-ray showing mild bilateral pulmonary infiltrates maybe related to mild pulmonary vascular congestion with a possible superimposed pneumonitis. Per my discussion with the nurse that is taking care of the patient, family has decided to withdraw care. Patient 09/18/2024 at 4:13 p.m.. Family notified. Blending Technician(s): Electrophysiology, critical Care and Infectious Disease Assessment/Plan: FINAL DIAGNOSIS Acute hypoxic and hypercapnic respiratory failure POA Mixed respiratory and metabolic acidosis POA Acute on chronic COPD exacerbation POA Acute on chronic heart failure with systolic dysfunction with EF of 45-50% Community-acquired pneumonia rule out Hypotension differential cardiogenic versus sepsis Sepsis rule out Lactic acidosis Atrial fibrillation status post ablation on 09/15/2024 History of chronic anticoagulation with Eliquis Hypertension Hyperlipidemia Debility History of right AKA Home Medications: Reported Medications Ipratropium/Albuterol Sulfate (Iprat-Albut 0.5-3(2.5) mg/3 ml) 0.5 Mg-3 Mg (2.5 Mg Base)/3 Ml Ampul.neb, 3 ML IH TID 09/14/24 Insulin Glargine,Hum.rec.anlog (Lantus) 100 Unit/Ml Inj, 30 UNITS SQ DAILY, ML 09/14/24 Lactulose (Lactulose) 10 Gram/15 Ml Solution, 10 GM PO DAILY, ML 09/14/24 Apixaban (Eliquis) 5 Mg Tablet, 5 MG PO BID, TAB 09/14/24 Benzonatate (Benzonatate) 100 Mg Capsule, 100 MG PO TID PRN for COUGH, CAP 09/14/24 Potassium Chloride (Potassium Chloride) 10 Meq Capsule.er, 10 MEQ PO DAILY, CAP 09/14/24 Metoprolol Succinate (Metoprolol Succinate) 100 Mg Tab.er.24h, 100 MG PO BID, TAB 09/14/24 Furosemide (Furosemide) 40 Mg Tablet, 40 MG PO DAILY, TAB 09/14/24 Prednisone (Prednisone) 20 Mg Tablet, 20 MG PO DAILY, TAB 09/14/24 Discontinued Reported Medications Insulin Glargine,Hum.rec.anlog (Lantus Solostar) 100 Unit/Ml (3 Ml) Insuln.pen, 30 UNIT SQ DAILY for 30 Days, #15 ML 0 Refills 08/27/24 Metoprolol Succinate (Metoprolol Succinate) 50 Mg Tab.er.24h, 1 TAB PO HS for 30 Days, #30 TAB 0 Refills 08/27/24 Prednisone (Prednisone) 10 Mg Tab.ds.pk, 1 TAB PO DAILY for 5 Days, #21 TAB 0 Refills 08/14/24 Potassium Chloride (Potassium Chloride) 10 Meq Tab.er.prt, 1 TAB PO DAILY for 30 Days, #30 TAB 0 Refills 08/14/24 Metoprolol Succinate (Metoprolol Succinate) 100 Mg Tab.er.24h, 1 TAB PO DAILY for 30 Days, #30 TAB 0 Refills 08/14/24 Apixaban (Eliquis) 5 Mg Tablet, 1 TAB PO BID for 30 Days, #60 TAB 0 Refills 08/14/24 Atorvastatin Calcium (Atorvastatin Calcium) 40 Mg Tablet, 1 TAB PO HS for 30 Days, #30 TAB 0 Refills 08/14/24 Pantoprazole Sodium (Pantoprazole Sodium) 40 Mg Tablet.dr, 1 TAB PO DAILY for 30 Days, #30 TAB 0 Refills 08/14/24 Fenofibrate (Fenofibrate) 160 Mg Tablet, 1 TAB PO DAILY for 30 Days, #30 TAB 0 Refills 08/14/24 Dapagliflozin Propanediol (Farxiga) 10 Mg Tablet, 1 TAB PO DAILY for 30 Days, #30 TAB 0 Refills 08/14/24 Sitagliptin Phos/Metformin HCl (Janumet 50-1,000 mg Tablet) 50 Mg-1,000 Mg Tablet, 1 TAB PO BID for 30 Days, #60 TAB 0 Refills 08/14/24 Discontinued Scripts Ipratropium [place] (Atrovent Neb Soln) 0.2 Mg/Ml (0.02 %) Soln, 1 VIAL NEB QID for 30 Days, #300 ML 0 Refills Prov:MAVIS PEGUERO 08/15/24 Furosemide (Furosemide) 40 Mg Tablet, 1 TAB PO DAILY for 30 Days, #30 TAB 0 Refills Prov:MAVIS PEGUERO 08/15/24 Time spent arranging discharge: 31-60 minutes ARELIS PEREZ MD Sep 19, 2024 10:18
--- NOTE | 2024-09-20 09:50 | EKG ---
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 : 1940 Requested By: AMY LUNDBERG Order Number: [id number] Reading MD: Britta Fontenot Measurements Intervals [place] Rate: 107 P: 0 [place]: 0 QRS: 0 QRSD: 97 T: 199 QT: 339 QTc: 478 Interpretive Statements Atrial flutter with predominant 3:1 AV block Markedly posterior QRS axis Abnormal T, consider ischemia, diffuse leads Compared to ECG 09/17/2024 17:44:44 AV block, advanced (high-grade) now present Posterior QRS axis now present T-wave abnormality now present Left-axis deviation no longer present ST (T wave) deviation no longer present Possible ischemia still present Electronically Signed On 09-20-2024 18:10:50 [employer] SPECIALIST by Britta Fontenot Please click the below link to view image of tracing.
[2024-09-20] MEDS ORDERED: VANCOMYCIN 1.25 GM/250 ML BAG 250 ML IV SCH (14:00)
== END 2024-09-18 17:07 | DRG 853 ==
LOC: DAH 10:17 → 2BH 10:18 → DAH 10:18
PROVIDERS: ADMIT Internal Medicine; ATTEND Internal Medicine
PROC: 4A023FZ Measurement of Cardiac Rhythm, Percutaneous Approach (ICD-10-PCS; principal; 2024-09-15)
PROC: 02583ZZ Destruction of Conduction Mechanism, Percutaneous Approach (ICD-10-PCS; 2024-09-15)
PROC: 4A0234Z Measurement of Cardiac Electrical Activity, Percutaneous Approach (ICD-10-PCS; 2024-09-15)
PROC: 02K83ZZ Map Conduction Mechanism, Percutaneous Approach (ICD-10-PCS; 2024-09-15)
PROC: 5A1945Z Respiratory Ventilation, 24-96 Consecutive Hours (ICD-10-PCS; 2024-09-15)
PROC: 0BH17EZ Insertion of Endotracheal Airway into Trachea, Via Natural or Artificial Opening (ICD-10-PCS; 2024-09-15)
DX: A41.9 Sepsis, unspecified organism (principal); E11.10 Type 2 diabetes mellitus with ketoacidosis without coma; I50.23 Acute on chronic systolic (congestive) heart failure; J18.9 Pneumonia, unspecified organism; J96.21 Acute and chronic respiratory failure with hypoxia; J96.22 Acute and chronic respiratory failure with hypercapnia; K72.00 Acute and subacute hepatic failure without coma; R65.21 Severe sepsis with septic shock; J44.1 Chronic obstructive pulmonary disease with (acute) exacerbation; J44.0 Chronic obstructive pulmonary disease with (acute) lower respiratory infection; E87.4 Mixed disorder of acid-base balance; I13.0 Hypertensive heart and chronic kidney disease with heart failure and stage 1 through stage 4 chronic kidney disease, or unspecified chronic kidney disease; N17.9 Acute kidney failure, unspecified; N39.0 Urinary tract infection, site not specified; I48.92 Unspecified atrial flutter; I48.0 Paroxysmal atrial fibrillation; R57.0 Cardiogenic shock; E11.51 Type 2 diabetes mellitus with diabetic peripheral angiopathy without gangrene; I95.9 Hypotension, unspecified; I27.20 Pulmonary hypertension, unspecified; E78.5 Hyperlipidemia, unspecified; B96.89 Other specified bacterial agents as the cause of diseases classified elsewhere; E11.22 Type 2 diabetes mellitus with diabetic chronic kidney disease; I08.0 Rheumatic disorders of both mitral and aortic valves; K76.0 Fatty (change of) liver, not elsewhere classified; R54 Age-related physical debility; N18.2 Chronic kidney disease, stage 2 (mild); Z89.611 Acquired absence of right leg above knee; Z86.718 Personal history of other venous thrombosis and embolism; Z79.01 Long term (current) use of anticoagulants; Z89.612 Acquired absence of left leg above knee
CPT/HCPCS: 36415; 36569; 36600; 71045; 80048; 80053; 81001; 82010; 82435; 82570; 82803; 82947; 82948; 83605; 83735; 83880; 84132; 84145; 84295; 84300; 84540; 85018; 85025; 85027; 85610; 85730; 86140; 87040; 87071; 87086; 87186; 87205; 87635; 87804; 87880; 93005; 93306; 93653; 93662; 94002; 94003; 94640; 94664; A4344; A4606; C1732; C1751; C1894; G0378; J0171; J0282; J0330; J0461; J0612; J0692; J1100; J1250; J1644; J1720; J1815; J1940; J2003; J2060; J2185; J2250; J2270; J2370; J2371; J2405; J2704; J2710; J2919; J3010; J3475; J3480; J3490; J7030; J7050; J7060; P9045; A4215; A4216; A4221; A4222; A4223; A4649; A4663; A9900; C1760; J3370